=== PATIENT | male | born 1970 | race Caucasian/White ===

== ENCOUNTER 2018-08-30 07:47 | Day surgery (SDC) | payer BC ==
[2018-08-28 11:23] VITALS: BMI 34.4
[~2018-08-30 07:47] MED LIST: LACTATED RINGERS 1,000 ML IV SCH
[2018-08-30] MEDS ORDERED: LIDOCAINE 1% 20 ML VIAL (10MG/ML) FOR IV START INTRADERMA ONE (08:24)
[2018-08-30 08:28] VITALS: RESP 16; TEMP 98
[2018-08-30] MEDS ORDERED: PROPOFOL 10 MG/ML 20 ML VIAL IV ONE (08:55)
--- NOTE | 2018-08-30 09:13 | P.PCN ---
Date of Procedure: 08/30/18 Procedure(s) Performed: BRIEF HISTORY: Patient is a 47-year-old pleasant white male, scheduled for an elective colonoscopy as a part of screening for colon neoplasia. His mother was diagnosed with colon cancer at age 45. PROCEDURE PERFORMED: Colonoscopy with biopsy. PREOPERATIVE DIAGNOSIS: Screening for colon cancer/family history of colon cancer. IV sedation per Anesthesia. PROCEDURE: After informed consent was obtained, the patient, was brought into the endoscopy unit. IV sedation was administered by Anesthesia under continuous monitoring. Digital rectal examination was normal. Initially the Olympus CF- 160 flexible video colonoscope was then inserted in the rectum, gradually advanced into the cecum without any difficulty. Careful examination was performed as the scope was gradually being withdrawn. Ileocecal valve and the appendiceal orifice were visualized and appeared normal. Prep was excellent. Mucosa of the cecum, ascending colon, transverse colon, descending colon, sigmoid colon, and rectum appeared normal. There was a 5 minute a polyp noted in the descending colon that was removed by cold biopsy. Retroflexion was performed in the rectum and no lesions were seen. The patient tolerated the procedure well. IMPRESSION: 5 mm ascending colon polyp status post removal by cold biopsy. Rest of the colon appeared normal. RECOMMENDATIONS: Findings of this examination were discussed with the patient as well as his family. He was advised to follow with the biopsy results. He can have a repeat colonoscopy in 5 years because of family history of colon cancer..
[2018-08-30 09:30] VITALS: BP 126/86; PULSE 62
== END 2018-08-30 09:49 | disposition home or self-care (01) ==
LOC: ORWHC2ENDO 07:47
PROVIDERS: ATTEND Internal Medicine Gastroenterology
DX: Z12.11 Encounter for screening for malignant neoplasm of colon (principal); K63.5 Polyp of colon; I10 Essential (primary) hypertension; Z79.899 Other long term (current) drug therapy; Z87.891 Personal history of nicotine dependence
CPT/HCPCS: 88305; 45380; J2704; 45378

== ENCOUNTER → 2020-09-24 | Outpatient (CLI) | payer BC | END | disposition home or self-care (01) | LOC: LABPAT 09:32 | PROVIDERS: ATTEND Surgery | DX: Z01.818 Encounter for other preprocedural examination (principal) ==

== ENCOUNTER 2020-09-27 06:23 | Day surgery (SDC) | payer BC ==
[2020-09-24 09:27] VITALS: BMI 33.7
[~2020-09-27 06:23] MED LIST changes: +ACETAMINOPHEN TAB 500 MG TAB PO ONE; +HEPARIN SODIUM,PORCINE 5,000 UNIT/ML 1 ML VIAL SQ ONE; +HYDROmorphone 0.5 MG/0.5 ML SYRINGE IVP PRN; +LIDOCAINE 1% (10MG/ML) FOR IV START INTRADERMA PRN; +ONDANSETRON 4 MG/2 ML VIAL IVP ONE; +Pre Op ABX Message 1 EACH MISC MISCELLANE ONE
[2020-09-27] MEDS ORDERED: DEXAMETHASONE SOD PHOSPHATE 10 MG/ML 1 ML VIAL IV ONE (07:16)
[2020-09-27] MEDS ORDERED: PROPOFOL 10 MG/ML 20 ML VIAL IV ONE (07:37)
[2020-09-27] MEDS ORDERED: MIDAZOLAM 2 MG/2 ML VIAL ONE (07:37)
[2020-09-27] MEDS ORDERED: fentaNYL (PF) 50 MCG/ML 2 ML AMP ONE (07:37)
[2020-09-27] MEDS ORDERED: BUPIVACAINE (PF) 0.25% 30 ML VIAL SQ ONE ×2 (07:55→08:16)
[2020-09-27] MEDS ORDERED: ceFAZolin 1,000 MG VIAL IVPB ONE (08:05)
[2020-09-27] MEDS ORDERED: HYDROcodone/APAP 5-325MG 1 EACH TAB PO PRN (08:32)
[2020-09-27] MEDS ORDERED: NALOXONE 0.4 MG/ML 1 ML VIAL IV PRN (08:32)
--- NOTE | 2020-09-27 08:36 | P.OP ---
Date of Procedure: 09/27/20 Procedure(s) Performed: PREOPERATIVE DIAGNOSIS: Elevated CPK, muscle weakness POSTOPERATIVE DIAGNOSIS: Same PROCEDURE: Left quadriceps muscle biopsy SURGEON: Camryn EBL: 5 mL ANESTHESIA: Sedation plus local COMPLICATIONS: None OPERATIVE PROCEDURE: Patient placed in the operating table in the supine position. Patient placed under sedation. Left thigh prepped and draped sterilely. Skin localized with Marcaine. A longitudinal incision made in the mid thigh. Dissection through the subcutaneous tissues took place using electrocautery. The fascia was incised sharply. A portion of the quadriceps muscle measuring 2.5 x 1 x 1 cm was taken. This was cut into 3 pieces and sent to [facility] per their instructions. No bleeding was seen. The fascia was reapproximated using a running 3-0 Vicryl suture. Subcutaneous tissues closed using interrupted 3-0 Vicryl sutures. Skin closed using 4-0 Monocryl sutures. Skin glue applied. DISPOSITION: Stable to recovery room
[2020-09-27 08:37] VITALS: TEMP 97
[2020-09-27 09:20] VITALS: RESP 16
[2020-09-27 09:52] VITALS: BP 124/80; PULSE 59
== END 2020-09-27 10:02 | disposition home or self-care (01) ==
LOC: OR 06:23
PROVIDERS: ATTEND Surgery
DX: G72.9 Myopathy, unspecified (principal); I10 Essential (primary) hypertension; Z79.899 Other long term (current) drug therapy; Z98.890 Other specified postprocedural states; Z87.891 Personal history of nicotine dependence; Z80.0 Family history of malignant neoplasm of digestive organs; Z80.42 Family history of malignant neoplasm of prostate
CPT/HCPCS: 20205; 93005; J2250; J1644; J1100; J2405; J0690; J3010; J2704

== ENCOUNTER → 2020-12-21 | Outpatient (CLI) | payer BC ==
[2020-12-22 05:51] LABS: African American GFR (CKD) 122.4 (60.0-200.0); Anion Gap 10.6 mmol/L (4.00-12.00); BUN/Creat Ratio 21.25 Ratio (12.00-20.00); Calcium 9.8 mg/dL (8.7-10.3); Carbon Dioxide 24.4 mmol/L (21.6-31.8); Non-African American GFR(CKD) 105.6 (60.0-200.0); Potassium 4.7 mmol/L (3.5-5.5)
== END | disposition home or self-care (01) ==
LOC: LABWHC1 15:34
PROVIDERS: ATTEND Internal Medicine Interventional Cardiology
DX: I10 Essential (primary) hypertension (principal)
CPT/HCPCS: 36415; 80048

== ENCOUNTER 2020-12-24 10:25 | Inpatient (IN) | payer BC ==
[~2020-12-24 10:25] MED LIST changes: -ACETAMINOPHEN TAB 500 MG TAB PO ONE; +ALPRAZolam 0.25 MG TAB PO PRN; +ALPRAZolam 0.5 MG TAB PO PRN; +ASPIRIN 325 MG TAB PO STA; +HEPARIN SODIUM,PORCINE 10,000 UNIT in SODIUM CHLORIDE 0.9% 1,000 ML IRRIGATION PRN; +HEPARIN SODIUM,PORCINE 2,500 UNIT in SODIUM CHLORIDE 0.9% 250 ML IRRIGATION PRN; -HEPARIN SODIUM,PORCINE 5,000 UNIT/ML 1 ML VIAL SQ ONE; -HYDROmorphone 0.5 MG/0.5 ML SYRINGE IVP PRN; -LACTATED RINGERS 1,000 ML IV SCH; -LIDOCAINE 1% (10MG/ML) FOR IV START INTRADERMA PRN; +NITROGLYCERIN SL TABS 0.4 MG TAB SUBLINGUAL PRN; -ONDANSETRON 4 MG/2 ML VIAL IVP ONE; -Pre Op ABX Message 1 EACH MISC MISCELLANE ONE; +SODIUM CHLORIDE 0.9% 1,000 ML in EMPTY BAG 1 BAG IV ONE
[2020-12-24] MEDS ORDERED: SODIUM CHLORIDE 0.9% 1,000 ML IV ONE (10:34)
[2020-12-24] MEDS ORDERED: METOPROLOL TARTRATE 5 MG/5 ML VIAL IVP ONE (10:42)
[2020-12-24] MEDS ORDERED: METOPROLOL TARTRATE 50 MG TAB PO STA (10:55)
[2020-12-24] MEDS ORDERED: DILTIAZEM DRIP BOLUS FROM BAG 1 MG SOLN IV ONE (10:55)
[2020-12-24] MEDS ORDERED: VERAPAMIL 2.5 MG/ML 2 ML AMP ONE (10:59)
[2020-12-24] MEDS ORDERED: HEPARIN SODIUM 1,000 UN/ML (10ML VL) ONE (10:59)
[2020-12-24] MEDS ORDERED: LIDOCAINE 1% INJ 10MG/ML (20 ML MDV) ONE (10:59)
[2020-12-24 11:01] LABS: Basophils # (A) 0.1 k/uL (0-0.2); Basophils % (A) 1 %; Eosinophils # (A) 0.3 k/uL (0-0.7); Eosinophils % (A) 3 %; HCT 46.6 % (39.0-53.0); HGB 15.4 gm/dL (13.0-17.5); Lymphocytes # (A) 3.3 k/uL (1.0-4.8); Lymphocytes % (A) 35 %; MCH 29.8 pg (25.0-35.0); MCHC 33.1 g/dL (31.0-37.0); MCV 89.8 fL (80.0-100.0); Mean Platelet Volume 7.1; Monocytes # (A) 0.4 k/uL (0-1.0); Monocytes % (A) 5 %; Neutrophils % (A) 54 %; Platelet Count 409 k/uL (150-450); RBC 5.19 m/uL (4.30-5.90); RDW 13.3 % (11.5-15.5); WBC 9.3 k/uL (3.8-10.6)
[2020-12-24] MEDS: MIDAZOLAM 2 MG/2 ML VIAL IV ONE ×2 (11:05→11:15)
[2020-12-24] MEDS ORDERED: METOPROLOL TARTRATE 50 MG TAB PO ONE (11:07)
[2020-12-24] MEDS: DILTIAZEM 125 MG in SODIUM CHLORIDE 0.9% 100 ML IV SCH (11:08)
[2020-12-24] MEDS: VERAPAMIL SYRINGE (5 MG/10 ML) INTRAARTER ONE ×2 (11:09→11:25)
[2020-12-24 11:22] LABS: African American GFR (CKD) >90 (>60 ml/min/1.73 sqM); Anion Gap 9 mmol/L; Blood Urea Nitrogen 15 mg/dL (9-20); Calcium 9.5 mg/dL (8.4-10.2); Carbon Dioxide 28 mmol/L (22-30); Chloride 102 mmol/L (98-107); Glucose 126 mg/dL (74-99); Non-African American GFR(CKD) >90 (>60 ml/min/1.73 sqM); Potassium 4.3 mmol/L (3.5-5.1); Sodium 139 mmol/L (137-145)
[2020-12-24] MEDS ORDERED: IOPAMIDOL-370 100ML BTL INJ ONE (11:25)
[2020-12-24] MEDS ORDERED: RX INFO: IV CONTRAST WAS GIVEN 1 EACH MISC MISCELLANE PRN (11:48)
[2020-12-24] MEDS: SODIUM CHLORIDE 0.9% 1,000 ML IV SCH (12:00)
--- NOTE | 2020-12-24 13:13 | CC ---
CARDIAC CATHETERIZATION REPORT DATE OF SERVICE: 12/24/2020. PROCEDURE: Left heart catheterization and coronary angiography. PERFORMED BY: Dr. Sd Lechuga. Moderate conscious sedation time was 13 minutes. Patient was administered Versed. Oxygen saturation, hemodynamics and EKG were monitored closely. CLINICAL INFORMATION: Mr. Nora Lema is a 50-year-old gentleman with some polymyalgia/polymyositis type issue with some weakness in his muscles. He came into see me because of nondescript chest pain and abnormal EKG with left bundle. I recommended further evaluation by stress test. The day he came in for the stress test, he was in atrial fibrillation with a moderately rapid ventricular rate with underlying left bundle. I gave him additional beta raphael and stress test revealed lateral wall reversible defect. He was advised cardiac cath. I also explained to the patient and that if his rate is high, he will be hospitalized after the cardiac cath. I did not give him anticoagulation since I saw him on Sunday and the procedure was scheduled for Sunday. The patient and understood risks, benefits, options, rationale, and wished to proceed. PROCEDURE NOTE: Under local anesthesia and strict aseptic precautions, a 6-Chinese introducer was placed in the right radial artery. Using a JL3.5 and JR4 catheters I performed coronary angiography and the same right catheter was used to check LV pressure but LV gram was not performed. The sheath was taken out and TR band applied as per protocol with saturation of the fingers of the right hand of 95%. The patient tolerated procedure well without complication. Findings and results were discussed with the patient and . I will keep him overnight and start him on flecainide in addition to beta raphael and also Eliquis 5 mg b.i.d. Thyroid function tests are pending. CARDIAC CATHETERIZATION FINDINGS: The left ventricular end-diastolic pressure was about 10 mmHg without any gradient across aortic valve. CORONARY ANGIOGRAPHY FINDINGS: LEFT MAIN CORONARY ARTERY: Short patent disease-free vessel that bifurcates into LAD and circumflex. LEFT ANTERIOR DESCENDING CORONARY ARTERY: Good caliber vessel extends along the anterior wall, gives off septal and a good-sized diagonal branch in the midportion. Minor irregularities. No significant disease. LEFT POSTERIOR CIRCUMFLEX CORONARY ARTERY: Nondominant vessel, gives off a large obtuse marginal and another secondary branch and then runs in the AV groove and left atrial circumflex branch. There are minor irregularities but no significant disease in the nondominant, good caliber and good distribution circumflex system. RIGHT CORONARY ARTERY: Dominant vessel. Minor irregularities. No significant disease distally bifurcates into PDA and PLV, supplies a fair amount of myocardium. LEFT VENTRICULOGRAM: Left ventriculogram was not performed. FINAL IMPRESSION: This patient has normal filling pressures, no gradient across the aortic valve, right dominant system and no obstructive coronary artery disease. RECOMMENDATIONS: Findings were discussed with the patient and . We will treat him medically with risk factor modification, but I will also initiate him on a small dose of flecainide and metoprolol succinate and Eliquis 5 mg b.i.d. and keep him overnight. MMODL / IJN: [id number] /
[2020-12-24] MEDS: LOSARTAN 50 MG TAB PO SCH (20:27)
[2020-12-24] MEDS: APIXABAN 5 MG TAB PO SCH (20:28)
[2020-12-24] MEDS: FLECAINIDE 50 MG TAB PO SCH (20:28)
[2020-12-25] MEDS: DILTIAZEM 125 MG in SODIUM CHLORIDE 0.9% 100 ML IV SCH ×2 (01:15→14:02)
[2020-12-25] MEDS: SODIUM CHLORIDE 0.9% 1,000 ML IV SCH (05:19)
[2020-12-25 07:15] LABS: Basophils % (A) 1 %; Eosinophils # (A) 0.2 k/uL (0-0.7); Eosinophils % (A) 4 %; HCT 42.7 % (39.0-53.0); HGB 14.7 gm/dL (13.0-17.5); Lymphocytes # (A) 1.5 k/uL (1.0-4.8); Lymphocytes % (A) 25 %; MCH 30.6 pg (25.0-35.0); MCHC 34.4 g/dL (31.0-37.0); Mean Platelet Volume 6.9; Monocytes # (A) 0.3 k/uL (0-1.0); Monocytes % (A) 4 %; Neutrophils # (A) 4.1 k/uL (1.3-7.7); Neutrophils % (A) 66 %; Platelet Count 230 k/uL (150-450); RDW 12.8 % (11.5-15.5); WBC 6.2 k/uL (3.8-10.6)
[2020-12-25 07:32] LABS: African American GFR (CKD) >90 (>60 ml/min/1.73 sqM); Anion Gap 9 mmol/L; Blood Urea Nitrogen 11 mg/dL (9-20); Calcium 8.8 mg/dL (8.4-10.2); Carbon Dioxide 23 mmol/L (22-30); Chloride 106 mmol/L (98-107); Glucose 112 mg/dL (74-99); Non-African American GFR(CKD) >90 (>60 ml/min/1.73 sqM); Potassium 4.2 mmol/L (3.5-5.1); Sodium 138 mmol/L (137-145)
[2020-12-25] MEDS: FLECAINIDE 50 MG TAB PO SCH ×2 (08:12→20:31)
[2020-12-25] MEDS: APIXABAN 5 MG TAB PO SCH ×2 (08:12→20:32)
[2020-12-25] MEDS ORDERED: ASPIRIN 81 MG PO SCH (09:00)
[2020-12-25] MEDS ORDERED: METOPROLOL TARTRATE 25 MG TAB PO SCH (09:00)
--- NOTE | 2020-12-25 10:07 | P.PN ---
Subjective Progress Note Date: 12/25/20 Discharge note This is a 50-year-old gentleman with history of polymyalgia, presented initially with some atypical chest pain and an EKG which revealed a left bundle. He underwent a stress test and was found to be in A. 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 Patient was given a beta raphael, stress test showed reversible lateral wall defect and patient was advised to undergo cardiac catheterization. This was performed yesterday by Dr. GT Lechuga. Cardiac catheterization revealed normal filling pressures, no gradient across the aortic valve, right dominant system with no obstructive coronary artery disease. Patient was initiated on flecainide and was also started on a Cardizem drip through the night last night. Patient did have some rapid atrial fibrillation through the night and again this morning, he is also having PVCs. Patient did convert to normal sinus rhythm and at the time of my examination this morning continues to be in a normal sinus rhythm. He denies any palpitations at present no chest discomfort and his breathing is stable. Blood pressure 120/80 with a heart rate in the 80s, 100% on room air. White blood cell count 6.2, hemoglobin 14.7, platelet count 2:30. Sodium 138, potassium 4.2, BUN 11, creatinine 0.6, magnesium is 1.8 and we will give him 2 g of Mag. Objective - Vital Signs Vital signs: Vital Signs Temp 97.6 F 12/25/20 07:15 Pulse 84 12/25/20 07:15 Resp 16 12/25/20 07:15 BP 119/83 12/25/20 07:15 Pulse Ox 100 12/25/20 07:15 Intake & Output 12/24/20 12/25/20 12/25/20 18:59 06:59 18:59 Intake Total 1612 40 210 Output Total 600 Balance 1012 40 210 Weight 108 kg Intake: IV 172 10 10 Invasive Line 2 10 10 10 Intake, IV Titration 20 30 Amount Diltiazem 125 mg In 20 30 Sodium Chloride 0.9% 100 ml @ 10 MG/HR 10 mls/hr IV .[id number] ARIEL Rx#: [id number] Oral 1420 200 Output: Urine 600 Other: # Voids 2 - Exam PHYSICAL EXAMINATION: GENERAL: 50-year-old gentleman in no acute distress at the time of my examination HEENT: Head is atraumatic, normocephalic. Pupils equal, round. Sclera anicteric. Conjunctiva are clear. Mucous membranes of the mouth are moist. Neck is supple. There is no elevated jugular venous pressure. No carotid bruit is heard. HEART EXAMINATION: Heart S1, S2 normal. No murmur or gallop heard. CHEST EXAMINATION: Lungs are clear to auscultation and precussion. No chest wall tenderness is noted on palpation or with deep breathing. ABDOMEN: Soft, nontender. Bowel sounds are heard. No organomegaly noted. EXTREMITIES: 2+ peripheral pulses with no evidence of peripheral edema and no calf tenderness noted. Right radial site clean and dry, good distal pulse. NEUROLOGIC patient is awake, alert and oriented X-3. . - Labs CBC & Chem 7: 12/25/20 06:50 12/25/20 06:50 Labs: Abnormal Lab Results - Last 24 Hours (Table) 12/24/20 12/25/20 Range/Units 10:40 06:50 Creatinine 0.62 L (0.66-1.25) mg/dL Glucose 126 H 112 H (74-99) mg/dL Assessment and Plan Plan: Assessment and plan #1 status post cardiac catheterization which revealed normal coronary arteries #2 atrial fibrillation with rapid ventricular response, paroxysmal, maintaining in normal sinus rhythm #3 polymyalgia Plan From cardiology's perspective, we will give the patient 2 g of magnesium today, he is having some occasional PVCs. He may be able to be discharged home today to follow-up with Dr. Desi Lechuga in the office post discharge. Discharge medications include Eliquis 5 mg one tablet by mouth twice a day, flecainide 50 mg one tablet by mouth twice a day, Cozaar 50 mg daily, metoprolol we will increase to 25 mg one tablet by mouth twice a day. We will make him a follow-up appointment to see Dr. GT Lechuga in the office in one week. DNP note has been reviewed, I agree with a documented findings and plan of care. Patient was seen and examined.
[2020-12-25] MEDS: MAGNESIUM SULFATE-D5W PMX 1 GM in DEXTROSE/WATER 1 100ML.BAG IVPB SCH ×2 (10:45→12:00)
[2020-12-25] MEDS: LOSARTAN 50 MG TAB PO SCH (20:31)
[2020-12-25] MEDS: METOPROLOL TARTRATE 25 MG TAB PO SCH (20:31)
[2020-12-26] MEDS: ACETAMINOPHEN TAB 325 MG TAB PO PRN (01:07)
[2020-12-26] MEDS: DILTIAZEM 125 MG in SODIUM CHLORIDE 0.9% 100 ML IV SCH ×3 (06:12→22:08)
[2020-12-26] MEDS: METOPROLOL TARTRATE 25 MG TAB PO SCH (07:36)
[2020-12-26] MEDS: APIXABAN 5 MG TAB PO SCH ×2 (07:36→19:44)
[2020-12-26] MEDS: FLECAINIDE 50 MG TAB PO SCH ×2 (07:36→19:45)
[2020-12-26] MEDS: METOPROLOL TARTRATE 50 MG TAB PO SCH ×2 (08:07→19:45)
[2020-12-26] MEDS ORDERED: FLECAINIDE 50 MG TAB PO STA (08:37)
[2020-12-26] MEDS ORDERED: FLECAINIDE 50 MG TAB PO SCH (09:00)
--- NOTE | 2020-12-26 10:14 | P.PN ---
Subjective Progress Note Date: 12/26/20 Discharge note This is a 50-year-old gentleman with history of polymyalgia, presented initially with some atypical chest pain and an EKG which revealed a left bundle. He underwent a stress test and was found to be in A. 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 Patient was given a beta raphael, stress test showed reversible lateral wall defect and patient was advised to undergo cardiac catheterization. This was performed yesterday by Dr. GT Lechuga. Cardiac catheterization revealed normal filling pressures, no gradient across the aortic valve, right dominant system with no obstructive coronary artery disease. Patient was initiated on flecainide and was also started on a Cardizem drip through the night last night. Patient did have some rapid atrial fibrillation through the night and again this morning, he is also having PVCs. Patient did convert to normal sinus rhythm and at the time of my examination this morning continues to be in a normal sinus rhythm. He denies any palpitations at present no chest discomfort and his breathing is stable. Blood pressure 120/80 with a heart rate in the 80s, 100% on room air. White blood cell count 6.2, hemoglobin 14.7, platelet count 2:30. Sodium 138, potassium 4.2, BUN 11, creatinine 0.6, magnesium is 1.8 and we will give him 2 g of Mag. 12/26/2020 Patient seen and examined this morning. He was not discharged home yesterday, because he went back into atrial fibrillation with a rapid ventricular response, heart rate was in the 170s. Patient was put back on a Cardizem drip at 10 mg per hour. This morning he was in a normal sinus rhythm, and EKG was performed which confirmed normal sinus rhythm, no change in QTC. His beta raphael dose was increased. Dr. GT Lechuga increased the patient's flecainide this morning and decrease the Cardizem drip to 5. On review of the paper chart, it appears that the patient had an echo performed at the office which revealed an ejection fraction of 55%. We will continue to monitor the patient overnight tonight, request Dr. Pérez to see the patient in consultation. Objective - Vital Signs Vital signs: Vital Signs Temp 98.2 F 12/26/20 07:35 Pulse 83 12/26/20 07:35 Resp 16 12/26/20 07:35 BP 136/101 12/26/20 07:35 Pulse Ox 98 12/26/20 07:35 Intake & Output 12/25/20 12/26/20 12/26/20 18:59 06:59 18:59 Intake Total 1060 125 124.833 Balance 1060 125 124.833 Weight 106.7 kg Intake: IV 20 Invasive Line 2 20 Intake, IV Titration 125 24.833 Amount Diltiazem 125 mg In 125 24.833 Sodium Chloride 0.9% 100 ml @ 10 MG/HR 10 mls/hr IV .[id number] ARIEL Rx#: [id number] Oral 1040 100 Other: # Voids 2 2 - Exam PHYSICAL EXAMINATION: GENERAL: 50-year-old gentleman in no acute distress at the time of my examination HEENT: Head is atraumatic, normocephalic. Pupils equal, round. Sclera anicteric. Conjunctiva are clear. Mucous membranes of the mouth are moist. Neck is supple. There is no elevated jugular venous pressure. No carotid bruit is heard. HEART EXAMINATION: Heart S1, S2 normal. No murmur or gallop heard. CHEST EXAMINATION: Lungs are clear to auscultation and precussion. No chest wall tenderness is noted on palpation or with deep breathing. ABDOMEN: Soft, nontender. Bowel sounds are heard. No organomegaly noted. EXTREMITIES: 2+ peripheral pulses with no evidence of peripheral edema and no calf tenderness noted. Right radial site clean and dry, good distal pulse. NEUROLOGIC patient is awake, alert and oriented X-3. . - Labs CBC & Chem 7: 12/25/20 06:50 12/25/20 06:50 Assessment and Plan Plan: Assessment and plan #1 status post cardiac catheterization which revealed normal coronary arteries #2 atrial fibrillation with rapid ventricular response, paroxysmal, maintaining in normal sinus rhythm #3 polymyalgia Plan Patient's beta raphael this morning with increased to 50 mg one tablet by mouth twice a day. He still is having intermittent episodes of rapid atrial fibrillation. Dr. GT Lechuga has given orders to decrease the Cardizem to 5 mg per hour and increase the flecainide to 100 mg by mouth twice a day. He has also requested that the patient be monitored overnight, Dr. Pérez to see in consultation tomorrow. DNP note has been reviewed, I agree with a documented findings and plan of care. Patient was seen and examined.
[2020-12-26] MEDS: LOSARTAN 50 MG TAB PO SCH (19:45)
[2020-12-27] MEDS: APIXABAN 5 MG TAB PO SCH ×2 (08:53→20:02)
[2020-12-27] MEDS: METOPROLOL TARTRATE 50 MG TAB PO SCH (08:53)
[2020-12-27] MEDS: FLECAINIDE 50 MG TAB PO SCH (08:53)
[2020-12-27 09:45] LABS: African American GFR (CKD) >90 (>60 ml/min/1.73 sqM); Anion Gap 9 mmol/L; Blood Urea Nitrogen 10 mg/dL (9-20); Carbon Dioxide 29 mmol/L (22-30); Chloride 102 mmol/L (98-107); Glucose 66 mg/dL (74-99); Magnesium 1.9 mg/dL (1.6-2.3); Non-African American GFR(CKD) >90 (>60 ml/min/1.73 sqM); Potassium 5.1 mmol/L (3.5-5.1); Sodium 140 mmol/L (137-145)
[2020-12-27 10:19] LABS: C Reactive Protein 7.4 mg/L (<10.0)
--- NOTE | 2020-12-27 10:23 | CT ---
EXAMINATION TYPE: CT chest wo con DATE OF EXAM: 12/27/2020 COMPARISON: Chest x-ray July 11, 2013 HISTORY: Assess for lymphadenopathy. Tachycardia. CT DLP: 568.8 mGycm. Automated Exposure Control for Dose Reduction was Utilized. TECHNIQUE: CT scan of the thorax is performed without IV contrast. FINDINGS: LUNGS: There is a 1.7 x 1.6 cm spiculated nodule or nodular consolidation central right middle lobe a xial image 34. Left lung is clear. No pleural effusion or pneumothorax. No suspicious masses. MEDIASTINUM: Lack of IV contrast is noted to limit evaluation for mediastinal and especially hilar ad enopathy. There are no definitive greater than 1 cm hilar or mediastinal lymph nodes. No cardiomega ly or pericardial effusion is seen. OTHER: [id number] multilevel spurring in the spine. IMPRESSION: Suspicious 1.7 x 1.6 cm central right middle Lobe nodule or nodular consolidation. No abn ormal thoracic adenopathy. Neoplasm cannot be excluded. Consider PET-CT follow-up.
[2020-12-27] MEDS: METOPROLOL SUCCINATE (ER) 50 MG TAB.ER.24H PO SCH ×2 (11:04→20:02)
[2020-12-27] MEDS: SPIRONOLACTONE 25 MG TAB PO SCH (11:20)
[2020-12-27] MEDS ORDERED: DILTIAZEM 125 MG in SODIUM CHLORIDE 0.9% 100 ML IV SCH (12:30)
--- NOTE | 2020-12-27 20:00 | P.EPCON ---
Electrophysiology Consult - EP Consult Electrophysiology Consult: This is Dr. Pérez dictating an electrophysiology consult on this patient The patient was interviewed and examined IMPRESSION / ASSESSMENT: Recurrent atrial tachycardia with RVR Nonsustained ventricular tachycardia, 2 episodes Left bundle branch block pattern IVCD with left anterior fascicular block Mildly prolonged NM interval Skeletal muscle disease, the underlying condition being worked up, muscle biopsy performed Normal ESR and C-reactive protein Consideration must be given for paraneoplastic condition to explain the myopathy, given the CT results PLAN: Stop Cardizem drip Switch to metoprolol succinate 50 g twice daily for management of mild cardiac myopathy and atrial tachycardia and nonsustained ventricular tachycardia Anticoagulated with ELIQUIS Stop flecainide Start spironolactone. 5 mg by mouth daily Check C-reactive protein and ESR Noncontrast CT of the chest to evaluate for sarcoidosis Angiotensin converting enzyme levels CT chest shows no abnormal thoracic adenopathy. Suspicious 1.76 1.6 cm central right middle lobe nodule or nodular consolidation. PET/CT recommended HPI Patient was admitted with chest discomfort and an EKG showed left bundle branch block. In the office he was found to be in A. 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 Stress test showed reversible lateral wall ischemia and he was advised to undergo cardiac catheterization in the hospital he had recurrent episodes of SVT at 170 280 beats a minute with a left bundle branch block pattern. His stress test showed reduced LV systolic function but his prior echo had showed normal LV function On telemetry he also had a daytime episode of bradycardia with AV block with underlying atrial tachycardia. He is also had 2 runs of non-sustained ventricular tachycardia The morphology of the nonsustained ventricular tachycardia is as follows: Right bundle branch block morphology with predominantly negatively oriented QRS is in lead 1 aVL and lead to In sinus rhythm he is a mildly prolonged NM interval left bundle branch block pattern/left anterior fascicular block pattern On 1 ECG fractionation is noted in the QRS of lead V2 He is currently being worked up for muscle weakness. He reviewed his muscle biopsy that there is no clear-cut onset on the muscle biopsy. His CPKs have always been elevated. He had weakness in the leg muscles ROS: No fever chills or rigors, no cough, phlegm or expectoration, no nausea, vomiting or diarrhea, no hematuria, dysuria, Positive musculoskeletal complaints, no strokes or seizures, no skin lesions. Complaints of palpitations, no loss of consciousness EXAMINATION: Blood pressure 122/78 mmHg afebrile 97.3F pulse rate in the 70s and 80s in sinus rhythm normal respirations Breath sounds are clear no rhonchi no crackles Normal heart sounds normal S1 normal S2 no murmurs or gallops or rub No muscle tenderness REVIEW OF LABS, ECG & MEDICAL DATA EMG shows chronic denervation CPK 2973, aldolase 17.9, liver enzymes elevated Mixed mild myopathic and a neurogenic changes The myopathic changes, mild and not entirely specific Consideration for paraneoplastic condition given the CT results TSH is normal
[2020-12-27] MEDS: LOSARTAN 25 MG TAB PO SCH (20:02)
[2020-12-28] MEDS: METOPROLOL SUCCINATE (ER) 50 MG TAB.ER.24H PO SCH ×2 (08:05→19:04)
[2020-12-28] MEDS: SPIRONOLACTONE 25 MG TAB PO SCH (08:05)
[2020-12-28] MEDS: APIXABAN 5 MG TAB PO SCH ×2 (08:05→20:39)
[2020-12-28 10:08] LABS: African American GFR (CKD) >90 (>60 ml/min/1.73 sqM); Anion Gap 9 mmol/L; Blood Urea Nitrogen 14 mg/dL (9-20); Calcium 9.9 mg/dL (8.4-10.2); Carbon Dioxide 30 mmol/L (22-30); Chloride 100 mmol/L (98-107); Glucose 99 mg/dL (74-99); Magnesium 1.8 mg/dL (1.6-2.3); Non-African American GFR(CKD) >90 (>60 ml/min/1.73 sqM); Potassium 4.8 mmol/L (3.5-5.1); Sodium 139 mmol/L (137-145)
[2020-12-28] MEDS: SOTALOL 80 MG TAB PO SCH ×2 (10:38→19:05)
[2020-12-28] MEDS: MAGNESIUM OXIDE 400 MG TAB PO SCH (10:38)
--- NOTE | 2020-12-28 11:35 | P.HPIM ---
History of Present Illness Patient is a pleasant 50-year-old gentleman was admitted for elective cardiac catheterization because of abnormal stress test cardiac ablation sugars showed clean coronaries. Patient was subsequently discharged patient went into atrial fibrillation with heart rate in 170s patient ended up coming back was started on Cardizem drip Flecanaide, which was subsequently discontinued and patient is presently on sotalol. Patient's daily is being monitored. Patient also has myopathy for which patient is being evaluated with a muscle biopsy. Patient had a computed tomography scan of the chest which showed a small 1.7-1.4 cm nodule f or which pulmonology was consulted. Patient denied any chest discomfort at this time heart rate is presently controlled patient denied any fever chills nausea vomiting. Electro-physiology evaluated the patient. Patient had a normal ejection fraction. Patient used to be a smoker quit smoking years ago does have history of COPD Review of Systems REVIEW OF SYSTEMS: CONSTITUTIONAL: No fever, no malaise, no fatigue. HEENT: No recent visual problems or hearing problems. Denied any sore throat. CARDIOVASCULAR: No chest pain, orthopnea, PND, no palpitations, no syncope. PULMONARY: No shortness of breath, no cough, no hemoptysis. GASTROINTESTINAL: No diarrhea, no nausea, no vomiting, no abdominal pain. NEUROLOGICAL: No headaches, no weakness, no numbness. HEMATOLOGICAL: Denies any bleeding or petechiae. GENITOURINARY: Denies any burning micturition, frequency, or urgency. MUSCULOSKELETAL/RHEUMATOLOGICAL: Denies any joint pain, swelling, or any muscle pain. ENDOCRINE: Denies any polyuria or polydipsia. The rest of the 14-point review of systems is negative. Past Medical History Past Medical History: Hypertension, Osteoarthritis (OA) Additional Past Medical History / Comment(s): FATTY LIVER., SINUS PROBLEMS, STATES BEING TESTED FOR AUTO IMMUNE DISEASE AT [facility] SYMPTOMS OF LOSS OF STRENGTH, FEELS TIRED ELEVATED CK AND LIVER ENZYMES, STATES SHOT FOR HEPATITIS AT 10 YRS OLD ? EXPOSURE., SEE CARDIOLOGY H & P., STATES SOB. History of Any Multi-Drug Resistant Organisms: None Reported Past Surgical History: Orthopedic Surgery Additional Past Surgical History / Comment(s): RIGHT CARPAL TUNNEL RELEASE, COLONOSCOPY. WISDOM TEETH., MUSCLE BX. Past Anesthesia/Blood Transfusion Reactions: No Reported Reaction Past Psychological History: No Psychological Hx Reported Smoking Status: Former smoker Past Alcohol Use History: Rare Additional Past Alcohol Use History / Comment(s): STARTED SMOKING AT AGE 14, SMOKED SMOKED 1 PPD, QUIT 10/2015 Past Drug Use History: None Reported - Past Family History Father Family Medical History: Cancer Additional Family Medical History / Comment(s): PROSTATE CANCER Mother Family Medical History: Cancer Additional Family Medical History / Comment(s): COLON CANCER X2 Brother(s) Family Medical History: Cancer Additional Family Medical History / Comment(s): SKIN Medications and Allergies Home Medications Medication Instructions Recorded Confirmed Type Multivitamins, Thera [Multivitamin 2 tab PO DAILY 08/28/18 12/24/20 History (formulary)] [place]-3 Fatty Acids/Fish Oil [Fish 1,400 mg PO HS 08/28/18 12/24/20 History Oil 1,000 mg Softgel] Cyanocobalamin [Vitamin B-12 1,000 mcg SQ DIRECTED 12/23/20 12/23/20 History Injection] Testosterone Injection 200 mg IM DIRECTED 12/23/20 History Apixaban [Eliquis] 5 mg PO BID #60 tab 12/25/20 Rx Losartan [Cozaar] 50 mg PO HS #30 tab 12/25/20 Rx Metoprolol Tartrate [Lopressor] 25 mg PO BID #60 tab 12/25/20 Rx Allergies Allergy/AdvReac Type Severity Reaction Status Date / Time No Known Allergies Allergy Verified 12/24/20 10:51 Physical Exam Vitals: Vital Signs Temp Pulse Resp BP Pulse Ox 12/28/20 08:30 70 18 12/28/20 08:05 98.1 F 70 16 127/83 97 12/28/20 03:46 74 18 105/67 99 12/28/20 01:30 71 16 12/27/20 23:25 71 16 114/73 97 12/27/20 20:00 97.8 F 73 16 117/80 97 12/27/20 16:00 97.9 F 75 16 124/84 96 12/27/20 11:41 97.3 F L 93 16 122/78 97 Intake and Output 12/27/20 12/28/20 12/28/20 22:59 06:59 14:59 Intake Total 480 Balance 480 Intake: Oral 480 Other: Voiding Method Toilet Toilet Toilet # Voids 1 1 Weight 105.5 kg PHYSICAL EXAMINATION: GENERAL: The patient is alert and oriented x3, not in any acute distress. Well developed, well nourished. HEENT: Pupils are round and equally reacting to light. EOMI. No scleral icterus. No conjunctival pallor. Normocephalic, atraumatic. No pharyngeal erythema. No thyromegaly. CARDIOVASCULAR: S1 and S2 present. No murmurs, rubs, or gallops. PULMONARY: Chest is clear to auscultation, no wheezing or crackles. ABDOMEN: Soft, nontender, nondistended, normoactive bowel sounds. No palpable organomegaly. MUSCULOSKELETAL: No joint swelling or deformity. EXTREMITIES: No cyanosis, clubbing, or pedal edema. NEUROLOGICAL: Gross neurological examination did not reveal any focal deficits. SKIN: No rashes. Results CBC & Chem 7: 12/25/20 06:50 12/28/20 09:30 Assessment and Plan Plan: -Atrial fibrillation with rapid ventricular response present is sinus rhythm rate controlled on sotalol daily will be monitored - nodular lesion on the CAT scan pulmonology will evaluate the patient -COPD without any acute exacerbation Possible myositis patient had a muscle biopsy
--- NOTE | 2020-12-28 12:31 | P.PN ---
Subjective He is seen and examined sitting up in the recliner in no acute distress. He has been up ambulating the room without chest pain or shortness of breath. His heart rates have been up and down in the last 24 hours. He was put back on IV cardizem yesterday which for the most part is controlling his rates but he still is having some bursts of RVR. Records from his neurologist were reviewed. He is considering possibly inherited muscular dystrophy, myofibrillar myopathy, metabolic myopathy or inflammatory myopathy. He is currently in the process of o btaining further genetic testing. A CT of the chest we ordered yesterday revealed a 1.7x1.6 central right middle lobe nodule or nodular density with no abnormal thoracic adenopathy. Current blood pressure 122/87 heart rate 77 afebrile and maintaining oxygen saturation on room air. Laboratory data r eviewed, sodium 139, potassium 4.8, creatinine 0.8, magnesium 1.8, angiotensin- converting enzyme 36 and TSH 2.51. GENERAL: Well-appearing, well-nourished and in no acute distress. NECK: Supple without JVD or thyromegaly. LUNGS: Breath sounds clear to auscultation bilaterally. Respiration equal and unlabored. No wheezes, rales or rhonchi. HEART: Regular rate and rhythm without murmurs, rubs or gallops. S1 and S2 heard. EXTREMITIES: Normal range of motion, no edema. No clubbing or cyanosis. Per ipheral pulses intact. ASSESSMENT Recurrent atrial tachycardia with RVR Nonsustained ventricular tachycardia Left bundle branch block with IVCD and left anterior fascicular block Prolonged GA interval Skeletal muscle disease Lung nodule Hypertension Former nicotine dependence PLAN Discontinue cardizem infusion. Repeat EKG today and daily moving forward. Initiate sotalol 80 mg BID. Assess daily GA interval and QTc. Continue eliquis for thromboembolic protection. Request pulmonary evaluation of newly found pulmonary nodule. Further recommendations to follow based on clinical course. Nurse Practitioner note has been reviewed, I agree with a documented findings and plan of care. Patient was seen and examined. Objective - Vital Signs Vital signs: Vital Signs Temp 97.7 F 12/28/20 11:57 Pulse 77 12/28/20 11:57 Resp 16 12/28/20 11:57 BP 122/87 12/28/20 11:57 Pulse Ox 99 12/28/20 11:57 Intake & Output 12/27/20 12/28/20 12/28/20 18:59 06:59 18:59 Intake Total 1800 Balance 1800 Weight 105.5 kg Intake: Oral 1800 Other: Voiding Method Toilet Toilet # Voids 3 1 - Labs CBC & Chem 7: 12/25/20 06:50 12/28/20 09:30
--- NOTE | 2020-12-28 16:45 | P.CNPUL ---
History of Present Illness Consult date: 12/28/20 Requesting physician: Ginette Granger Reason for consult: abnormal CXR/CT Chief complaint: Abnormal CAT scan. History of present illness: 50-year-old male that I am asked to see for an abnormal computed tomography scan showing a suspicious 1.7 x 1.6 cm central right middle lobe nodule. There was no thoracic adenopathy. A PET/CT fusion study was recommended. The patient had a cardiac catheterization recently. In addition, he recently had a consultation with the electrical accessories ii assembler. He is not having any lung issues at this time. The patient has a history of hypertension, and osteoarthritis, as well as fatty liver, possible autoimmune disease, among other things. The patient told me that his cardiac catheterization was within normal range. In the process of evaluating the patient, he was discovered to have the right-sided lung lesion. I explained to him that this can be worked up as an outpatient and I will probably go ahead and order a PET scan. He apparently started smoking at the age of 14. He quit smoking about 5 years ago in October 2015. He smoked about a pack a day. There is a family history of prostate cancer, colon cancer, and skin cancer, but not lung cancer. Again the patient denies all pulmonary complaints including shortness of breath, chest tightness, cough, wheezing, phlegm production, or hemoptysis. Review of Systems REVIEW OF SYSTEMS: CONSTITUTIONAL: [Negative.] NEUROLOGIC: [ Negative.] HEENT: [ Negative.] CARDIAC: Severe atrial fibrillation. PULMONARY: [Negative.] GI: [Negative.] : [Negative.] RHEUMATOLOGIC: Questionable autoimmune disease/myopathy, currently being evaluated. IMMUNOLOGIC: [ Negative.] ENDOCRINE: [Negative. ] DERMATOLOGIC: [Negative.] Past Medical History Past Medical History: Hypertension, Osteoarthritis (OA) Additional Past Medical History / Comment(s): FATTY LIVER., SINUS PROBLEMS, STATES BEING TESTED FOR AUTO IMMUNE DISEASE AT [facility] SYMPTOMS OF LOSS OF STRENGTH, FEELS TIRED ELEVATED CK AND LIVER ENZYMES, STATES SHOT FOR HEPATITIS AT 10 YRS OLD ? EXPOSURE., SEE CARDIOLOGY H & P., STATES SOB. History of Any Multi-Drug Resistant Organisms: None Reported Past Surgical History: Orthopedic Surgery Additional Past Surgical History / Comment(s): RIGHT CARPAL TUNNEL RELEASE, COLONOSCOPY. WISDOM TEETH., MUSCLE BX. Past Anesthesia/Blood Transfusion Reactions: No Reported Reaction Past Psychological History: No Psychological Hx Reported Smoking Status: Former smoker Past Alcohol Use History: Rare Additional Past Alcohol Use History / Comment(s): STARTED SMOKING AT AGE 14, SMOKED SMOKED 1 PPD, QUIT 10/2015 Past Drug Use History: None Reported - Past Family History Father Family Medical History: Cancer Additional Family Medical History / Comment(s): PROSTATE CANCER Mother Family Medical History: Cancer Additional Family Medical History / Comment(s): COLON CANCER X2 Brother(s) Family Medical History: Cancer Additional Family Medical History / Comment(s): SKIN Medications and Allergies Home Medications Medication Instructions Recorded Confirmed Type Multivitamins, Thera [Multivitamin 2 tab PO DAILY 08/28/18 12/24/20 History (formulary)] [place]-3 Fatty Acids/Fish Oil [Fish 1,400 mg PO HS 08/28/18 12/24/20 History Oil 1,000 mg Softgel] Cyanocobalamin [Vitamin B-12 1,000 mcg SQ DIRECTED 12/23/20 12/23/20 History Injection] Testosterone Injection 200 mg IM DIRECTED 12/23/20 History Apixaban [Eliquis] 5 mg PO BID #60 tab 12/25/20 Rx Losartan [Cozaar] 50 mg PO HS #30 tab 12/25/20 Rx Metoprolol Tartrate [Lopressor] 25 mg PO BID #60 tab 12/25/20 Rx Allergies Allergy/AdvReac Type Severity Reaction Status Date / Time No Known Allergies Allergy Verified 12/24/20 10:51 Physical Exam Osteopathic Statement: *. No significant issues noted on an osteopathic structural exam other than those noted in the History and Physical/Consult. Vitals: Vital Signs Temp Pulse Pulse Resp BP BP Pulse Ox 12/28/20 11:57 97.7 F 77 16 122/87 99 12/28/20 08:30 70 18 12/28/20 08:05 98.1 F 70 16 127/83 97 12/28/20 03:46 74 18 105/67 99 12/28/20 01:30 71 16 12/27/20 23:25 71 16 114/73 97 12/27/20 20:00 97.8 F 73 16 117/80 97 Intake and Output 12/28/20 12/28/20 12/28/20 06:59 14:59 22:59 Intake Total 720 Balance 720 Intake: Oral 720 Other: Voiding Method Toilet Toilet # Voids 1 2 Weight 105.5 kg No acute distress, oriented 3. No supplemental oxygen. HEENT examination is grossly unremarkable. Mucous membranes are moist. No oral lesions. Neck supple. Full range of motion. No adenopathy thyromegaly or neck vein distention. Cardiovascular examination reveals regular rhythm rate. S1-S2 normal. No S3 or S4. No discernible murmur noted. Heart rate 77 bpm. Lungs reveal clear breath sounds. Her sounds are equal bilaterally. No adventitious lung sounds including wheezes rhonchi or crackles. Abdomen soft bowel sounds are heard. No masses or tenderness. Extremities are intact. No cyanosis clubbing or edema. Skin is without rash or lesion. Neurologic examination is brief but nonfocal. Results - Laboratory Findings CBC and BMP: 12/25/20 06:50 12/28/20 09:30 Abnormal lab findings: Abnormal Labs 12/24/20 12/25/20 12/27/20 10:40 06:50 09:08 Creatinine 0.62 L Glucose 126 H 112 H 66 L - Diagnostic Findings CT scan - chest: image reviewed Assessment and Plan Assessment: Solitary pulmonary nodule, about 1.7 by 1.6 cm in size, in the area of the right middle lobe. This could represent an early lung cancer given his smoking history. A outpatient PET scan will be ordered. New-onset atrial fibrillation with RVR. Status post cardiac catheterization, relatively normal coronary arteries. Possible autoimmune disease. Questionable myopathy, status post muscle biopsy. History of fatty liver. History of chronic sinus disease. Plan: Plan dated 10/27/2021. The patient will have an outpatient PET scan ordered. We have made him a f ollow-up to see me in the office once he is discharged from the hospital. I told him, he may need a biopsy, or, depending on the PET scan result, we may just observe the lesion with serial computed tomography scans. Suggestions are forthcoming. We will continue to follow. We made an appointment to see me in the office. No additional recommendations are made. He quit smoking back in 2014. Time with Patient: Greater than 30
[2020-12-28] MEDS: LOSARTAN 25 MG TAB PO SCH (20:39)
[2020-12-28] MEDS ORDERED: METOPROLOL TARTRATE 50 MG TAB PO STA (20:47)
[2020-12-28] MEDS ORDERED: DILTIAZEM DRIP BOLUS FROM BAG 1 MG SOLN IV ONE (22:37)
[2020-12-28] MEDS: DILTIAZEM 125 MG in SODIUM CHLORIDE 0.9% 100 ML IV SCH (22:50)
[2020-12-29 07:51] LABS: African American GFR (CKD) >90 (>60 ml/min/1.73 sqM); Anion Gap 8 mmol/L; Blood Urea Nitrogen 16 mg/dL (9-20); Calcium 10.1 mg/dL (8.4-10.2); Carbon Dioxide 30 mmol/L (22-30); Chloride 100 mmol/L (98-107); Glucose 111 mg/dL (74-99); Non-African American GFR(CKD) >90 (>60 ml/min/1.73 sqM); Potassium 4.4 mmol/L (3.5-5.1); Sodium 138 mmol/L (137-145)
[2020-12-29] MEDS: APIXABAN 5 MG TAB PO SCH ×2 (09:21→20:35)
[2020-12-29] MEDS: SOTALOL 80 MG TAB PO SCH ×2 (09:21→20:35)
[2020-12-29] MEDS: SPIRONOLACTONE 25 MG TAB PO SCH (09:21)
[2020-12-29] MEDS: METOPROLOL SUCCINATE (ER) 50 MG TAB.ER.24H PO SCH ×2 (09:21→20:35)
[2020-12-29] MEDS: MAGNESIUM OXIDE 400 MG TAB PO SCH (09:21)
[2020-12-29] MEDS: DILTIAZEM 125 MG in SODIUM CHLORIDE 0.9% 100 ML IV SCH (09:22)
--- NOTE | 2020-12-29 13:11 | P.PN ---
Subjective Progress Note Date: 12/29/20 Principal diagnosis: Abnormal computed tomography scan. 50-year-old male that I am asked to see for an abnormal computed tomography scan showing a suspicious 1.7 x 1.6 cm central right middle lobe nodule. There was no thoracic adenopathy. A PET/CT fusion study was recommended. The patient had a cardiac catheterization recently. In addition, he recently had a consultation with the clinical specialist. He is not having any lung issues at this time. The patient has a history of hypertension, and osteoarthritis, as well as fatty liver, possible autoimmune disease, among other things. The patient told me that his cardiac catheterization was within normal range. In the process of evaluating the patient, he was discovered to have the right-sided lung lesion. I explained to him that this can be worked up as an outpatient and I will probably go ahead and order a PET scan. He apparently started smoking at the age of 14. He quit smoking about 5 years ago in October 2015. He smoked about a pack a day. There is a family history of prostate cancer, colon cancer, and skin cancer, but not lung cancer. Again the patient denies all pulmonary complaints including shortness of breath, chest tightness, cough, wheezing, phlegm production, or hemoptysis. Progress note dated 12/29/2020. The initial plan for this patient was to allow the patient to be discharged ho me, follow-up with me in the office, and get him scheduled for an outpatient PET scan. If the PET scan was negative, we would follow the lesion in the right lung, with serial computed tomography scan in. At the PET scan was positive, the plan would be to do a navigational bronchoscopy on this patient. Today, we met with the leather tacker seeing this patient, and he wanted us to proceed with a navigational procedure even before doing the PET scan. I discussed this with the patient. He is a bit reluctant. He will give us some thought. Currently, he is on a factor X a inhibitor. That would have to be stopped and he will be placed on IV heparin. We could do the procedure on Sunday. I was very honest with the leather tacker and the patient and said that the lesion is relatively small and his location and a central position in the right midlung, would make it difficult target. Nonetheless, if he agrees, we can do the procedure on [place]. Currently, the patient denies all pulmonary complaints including shortness of breath, chest tightness, cough, wheezing, and phlegm production. Objective - Vital Signs Vital signs: Vital Signs Temp 97.8 F 12/29/20 11:59 Pulse 63 12/29/20 11:59 Resp 18 12/29/20 11:59 BP 110/78 12/29/20 11:59 Pulse Ox 97 12/29/20 11:59 Intake & Output 12/28/20 12/29/20 12/29/20 18:59 06:59 18:59 Intake Total 1680 341.333 Balance 1680 341.333 Weight 105.7 kg Intake: Intake, IV Titration 105.333 Amount Diltiazem 125 mg In 105.333 Sodium Chloride 0.9% 100 ml @ 10 MG/HR 10 mls/hr IV .[id number] [facility] Rx#: [id number] Oral 1680 236 Other: Voiding Method Toilet Toilet Toilet # Voids 2 2 1 - Exam No acute distress, oriented 3. No supplemental oxygen. HEENT examination is grossly unremarkable. Mucous membranes are moist. No oral lesions. Neck supple. Full range of motion. No adenopathy thyromegaly or neck vein distention. Cardiovascular examination reveals regular rhythm rate. S1-S2 normal. No S3 or S4. No discernible murmur noted. Heart rate 63 bpm. Lungs reveal clear breath sounds. Her sounds are equal bilaterally. No adventitious lung sounds including wheezes rhonchi or crackles. Abdomen soft bowel sounds are heard. No masses or tenderness. Extremities are intact. No cyanosis clubbing or edema. Skin is without rash or lesion. Neurologic examination is brief but nonfocal. - Labs CBC & Chem 7: 12/25/20 06:50 12/29/20 07:17 Labs: Abnormal Lab Results - Last 24 Hours (Table) 12/29/20 Range/Units 07:17 Glucose 111 H (74-99) mg/dL Assessment and Plan Assessment: Solitary pulmonary nodule, about 1.7 by 1.6 cm in size, in the area of the right middle lobe. This could represent an early lung cancer given his smoking history. A outpatient PET scan will be ordered. New-onset atrial fibrillation with RVR. Status post cardiac catheterization, relatively normal coronary arteries. Possible autoimmune disease. Questionable myopathy, status post muscle biopsy. History of fatty liver. History of chronic sinus disease. Plan: Plan dated 10/27/2021. The patient will have an outpatient PET scan ordered. We have made him a follow-up to see me in the office once he is discharged from the hospital. I told him, he may need a biopsy, or, depending on the PET scan result, we may just observe the lesion with serial computed tomography scans. Suggestions are forthcoming. We will continue to follow. We made an appointment to see me in the office. No additional recommendations are made. He quit smoking back in 2014. Plan dated 12/29/2020. Today, I discussed the possibility of doing a electromagnetic navigational bronchoscopy on the patient before the PET scan is ordered. He's a bit reluctant to do that, he can give us some thought. If he agrees, we can do it on Sunday. He'll be done in the operating room under general anesthesia. We will have to stop the Eliquis, and put the patient on IV heparin. The leather tacker tells me today that the patient is stable for this procedure. Additional recommendations and suggestions are forthcoming. We will follow along. Should the patient decline, we will see him in the office, and order an outpatient PET scan, and proceed from there. Time with Patient: Less than 30
--- NOTE | 2020-12-29 13:54 | P.PN ---
Subjective He is seen and examined sitting up in the recliner in no acute distress. Last night he had another episode of RVR with heart rates in the 150's. Additional lopressor was given and IV cardizem was again initiated. He is now currently in sinus mechanism with rates in the 70's. Blood pressure 115/67. Pulmonary has seen him and is recommending outpatient PET and possible biopsy of the lung nodule. Repeat EKG this morning revealed an absolute QT of 400 ms. Lipitor data reviewed, sodium 138, potassium 4.4, magnesium 2.0 and creatinine 0.8. GENERAL: Well-appearing, well-nourished and in no acute distress. NECK: Supple without JVD or thyromegaly. LUNGS: Breath sounds clear to auscultation bilaterally. Respiration equal and unlabored. No wheezes, rales or rhonchi. HEART: Regular rate and rhythm without murmurs, rubs or gallops. S1 and S2 heard . EXTREMITIES: Normal range of motion, no edema. No clubbing or cyanosis. Peripheral pulses intact. 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 Continue sotalol and daily EKGs. Full effect of sotalol will take 5 doses to be in the system. He has received 3 thus far. Consider possible ablation on Sunday depending on his rhythm with sotalol. Further recommendations to follow based upon clinical course. Nurse Practitioner note has been reviewed, I agree with a documented findings and plan of care. Patient was seen and examined. Objective - Vital Signs Vital signs: Vital Signs Temp 97.8 F 12/29/20 11:59 Pulse 63 12/29/20 11:59 Resp 18 12/29/20 11:59 BP 110/78 12/29/20 11:59 Pulse Ox 97 12/29/20 11:59 Intake & Output 12/28/20 12/29/20 12/29/20 18:59 06:59 18:59 Intake Total 1680 341.333 Balance 1680 341.333 Weight 105.7 kg Intake: Intake, IV Titration 105.333 Amount Diltiazem 125 mg In 105.333 Sodium Chloride 0.9% 100 ml @ 10 MG/HR 10 mls/hr IV .[id number] [facility] Rx#: [id number] Oral 1680 236 Other: Voiding Method Toilet Toilet Toilet # Voids 2 2 1 - Labs CBC & Chem 7: 12/25/20 06:50 12/29/20 07:17 Labs: Abnormal Lab Results - Last 24 Hours (Table) 12/29/20 Range/Units 07:17 Glucose 111 H (74-99) mg/dL
--- NOTE | 2020-12-29 18:10 | P.PN ---
Progress Note - Text Progress Note Date: 12/29/20 Presenting complaint: Rapid heart rate History of presenting complaint: Patient is a pleasant 50-year-old gentleman was admitted for elective cardiac catheterization because of abnormal stress test cardiac ablation sugars showed clean coronaries. Patient was subsequently discharged patient went into atrial fibrillation with heart rate in 170s patient ended up coming back was started on Cardizem drip Flecanaide, which was subsequently discontinued and patient is presently on sotalol. Patient's daily is being monitored. Patient also has myopathy for which patient is being evaluated with a muscle biopsy. Patient had a computed tomography scan of the chest which showed a small 1.7-1.4 cm nodule for which pulmonology was consulted. Patient denied any chest discomfort at this time heart rate is presently controlled patient denied any fever chills nausea vomiting. Electro-physiology evaluated the patient. Patient had a normal ejection fraction. Patient used to be a smoker quit smoking years ago does have history of COPD Today-sitting up. No chest pain and palpitation. Patient is off Cardizem drip. On sotalol 80 mg twice a day. Also on eliquis. Review of systems: Was done for constitutional, cardiovascular, GI, pulmonary. relevant finding as above Active Medications Acetaminophen (Acetaminophen Tab 325 Mg Tab) 650 mg PO Q6HR PRN PRN Reason: Pain Last Admin: 12/26/20 01:07 Dose: 650 mg Documented by: Alprazolam (Alprazolam 0.25 Mg Tab) 0.25 mg PO Q6HR PRN PRN Reason: Mild Anxiety Stop: 01/23/21 06:21 Alprazolam (Alprazolam 0.5 Mg Tab) 0.5 mg PO Q6HR PRN PRN Reason: Moderate Anxiety Stop: 01/23/21 06:21 Apixaban (Apixaban 5 Mg Tab) 5 mg PO BID [facility] Last Admin: 12/29/20 09:21 Dose: 5 mg Documented by: Losartan Potassium (Losartan 25 Mg Tab) 25 mg PO HS [facility] Stop: 01/23/21 21:01 Last Admin: 12/28/20 20:39 Dose: 25 mg Documented by: Magnesium Oxide (Magnesium Oxide 400 Mg Tab) 400 mg PO DAILY [facility] Last Admin: 12/29/20 09:21 Dose: 400 mg Documented by: Metoprolol Succinate (Metoprolol Succinate (Er) 50 Mg Tab.Er.24h) 50 mg PO BID [facility] Last Admin: 12/29/20 09:21 Dose: 50 mg Documented by: Nitroglycerin (Nitroglycerin Sl Tabs 0.4 Mg Tab) 0.4 mg SUBLINGUAL Q5M PRN PRN Reason: Chest Pain Stop: 01/23/21 06:21 Sotalol HCl (Sotalol 80 Mg Tab) 80 mg PO BID [facility] Last Admin: 12/29/20 09:21 Dose: 80 mg Documented by: Spironolactone (Spironolactone 25 Mg Tab) 25 mg PO DAILY [facility] Last Admin: 12/29/20 09:21 Dose: 25 mg Documented by: On examination: VITAL SIGNS: 97.6, 91, 16, 110/70, 97% room air GENERAL APPEARANCE: BMI 33.4, sitting up in a chair, comfortable HEENT: Normal external appearance of nose and ear. Oral cavity normal EYES: Pupils equal. Conjunctiva normal. NECK: JVD not raised. Mass not palpable. RESPIRATORY: Respiratory effort normal. Lungs clear to auscultation. CARDIOVASCULAR: Heart sounds irregular, no edema. ABDOMEN: Soft. Liver and spleen not palpable. No tenderness. No mass palpable. PSYCHIATRY: Alert and oriented x3. Mood and affect normal. INVESTIGATIONS, reviewed in the clinical context: White count 6.2 hemoglobin 14.7 platelets 2:30 potassium 4.4 creatinine 0.8 TSH 2.5 Assessment: -Recurrent atrial tachycardia with RVR -Nonsustained ventricular tachycardia -Left bundle-branch block with IVCD and left anterior vascular block -Prolonged QT interval -Muscle disorder cause unknown-patient had a muscle biopsy and being followed by Dr. Mueller at [facility]. At this present time cause unknown. He is having wasting of muscles of the calf, generalized muscle weakness. Unable to stand on tip toes -Hepatic steatosis -Obesity BMI 33.4 -1.71.6 cm Central right middle lobe nodule-lung: Outpatient PET scan and being followed by Dr. Kwong Plan: Per cardiology Cardizem drip was discontinued. Patient is on sotalol. Possible ablation on Sunday. Depending on clinical course. Discussed with the patient.
[2020-12-29] MEDS: LOSARTAN 25 MG TAB PO SCH (20:35)
[2020-12-30] MEDS: SOTALOL 80 MG TAB PO SCH ×2 (08:17→20:16)
[2020-12-30] MEDS: APIXABAN 5 MG TAB PO SCH ×2 (08:17→20:16)
[2020-12-30] MEDS: MAGNESIUM OXIDE 400 MG TAB PO SCH (08:17)
[2020-12-30] MEDS: METOPROLOL SUCCINATE (ER) 50 MG TAB.ER.24H PO SCH ×2 (08:17→20:16)
[2020-12-30] MEDS: SPIRONOLACTONE 25 MG TAB PO SCH (08:17)
[2020-12-30 11:25] VITALS: BMI 33.1
--- NOTE | 2020-12-30 12:24 | P.PN ---
Subjective Progress Note Date: 12/30/20 Principal diagnosis: Lung nodule, atrial tachycardia 50-year-old male that I am asked to see for an abnormal computed tomography scan showing a suspicious 1.7 x 1.6 cm central right middle lobe nodule. There was no thoracic adenopathy. A PET/CT fusion study was recommended. The patient had a cardiac catheterization recently. In addition, he recently had a consultation with the research investigator. He is not having any lung issues at this time. The patient has a history of hypertension, and osteoarthritis, as well as fatty liver, possible autoimmune disease, among other things. The patient told me that his cardiac catheterization was within normal range. In the process of evaluating the patient, he was discovered to have the right-sided lung lesion. I explained to him that this can be worked up as an outpatient and I will probably go ahead and order a PET scan. He apparently started smoking at the age of 14. He quit smoking about 5 years ago in October 2015. He smoked about a pack a day. There is a family history of prostate cancer, colon cancer, and skin cancer, but not lung cancer. Again the patient denies all pulmonary complaints including shortness of breath, chest tightness, cough, wheezing, phlegm production, or hemoptysis. Progress note dated 12/29/2020. The initial plan for this patient was to allow the patient to be discharged home, follow-up with me in the office, and get him scheduled for an outpatient PET scan. If the PET scan was negative, we would follow the lesion in the right lung, with serial computed tomography scan in. At the PET scan was positive, the plan would be to do a navigational bronchoscopy on this patient. Today, we met with the sectional belt mold assembler seeing this patient, and he wanted us to proceed with a navigational procedure even before doing the PET scan. I discussed this with the patient. He is a bit reluctant. He will give us some thought. Currently, he is on a factor X a inhibitor. That would have to be stopped and he will be placed on IV heparin. We could do the procedure on Sunday. I was very honest with the sectional belt mold assembler and the patient and said that the lesion is relatively small and his location and a central position in the right midlung, would make it difficult target. Nonetheless, if he agrees, we can do the procedure on Sunday. Currently, the patient denies all pulmonary complaints including shortness of breath, chest tightness, cough, wheezing, and phlegm production. The patient is seen today 12/30/2020 in follow-up on the selective care unit. He is currently resting comfortably in bed. Awake and alert in no acute distress. He denies any shortness of breath, cough or congestion. No hemoptysis. Maintaining O2 saturation in the 90s on room air. He is afebrile. He is anticoagulated with Eliquis. Remains on sotalol, metoprolol. Objective - Vital Signs Vital signs: Vital Signs Temp 97.8 F 12/30/20 04:00 Pulse 84 12/30/20 04:00 Resp 16 12/30/20 04:00 BP 122/72 12/30/20 04:00 Pulse Ox 100 12/30/20 04:00 Intake & Output 12/29/20 12/30/20 12/30/20 18:59 06:59 18:59 Intake Total 459.333 236 Balance 459.333 236 Weight 104.9 kg 104.9 kg Intake: Intake, IV Titration 105.333 Amount Diltiazem 125 mg In 105.333 Sodium Chloride 0.9% 100 ml @ 10 MG/HR 10 mls/hr IV .[id number] [facility] Rx#: [id number] Oral 354 [id number] Other: Voiding Method Toilet Toilet # Voids 3 2 1 - Exam GENERAL EXAM: Alert, active, pleasant 50-year-old gentleman, on room air, comfortable in no apparent distress. HEAD: Normocephalic. EYES: Normal reaction of pupils, equal size. NOSE: Clear with pink turbinates. THROAT: No erythema or exudates. NECK: No masses, no JVD. CHEST: No chest wall deformity. LUNGS: Equal air entry with no crackles, wheeze, rhonchi or dullness. CVS: S1 and S2 normal with no audible murmur, regular rhythm. ABDOMEN: No hepatosplenomegaly, normal bowel sounds, no guarding or rigidity. SPINE: No scoliosis or deformity SKIN: No rashes CENTRAL NERVOUS SYSTEM: No focal deficits, tone is normal in all 4 extremities. EXTREMITIES: There is no peripheral edema. No clubbing, no cyanosis. Peripheral pulses are intact. - Labs CBC & Chem 7: 12/25/20 06:50 12/29/20 07:17 Assessment and Plan Assessment: Solitary pulmonary nodule, about 1.7 by 1.6 cm in size, in the area of the right middle lobe. This could represent an early lung cancer given his smoking history. A outpatient PET scan will be ordered. New-onset atrial fibrillation with RVR. Status post cardiac catheterization, relatively normal coronary arteries. Possible autoimmune disease. Questionable myopathy, status post muscle biopsy. History of fatty liver. History of chronic sinus disease. Plan: The patient was seen and evaluated by Dr. Kwong He remains anticoagulated with Eliquis Plan is for atrial ablation on 01/03/2021 We'll continue with plans for outpatient PET scan prior to biopsies of the lung nodule I, the cosigning physician, performed a history & physical examination of the patient. Lungs sounds are clear. Maintaining good O2 saturations in the 90s on room air. I discussed the assessment and plan of care with my nurse practitioner, Fannie Vela. I attest to the above note as dictated by her.
[2020-12-30] MEDS: DILTIAZEM 125 MG in SODIUM CHLORIDE 0.9% 100 ML IV SCH (12:57)
--- NOTE | 2020-12-30 13:37 | P.PN ---
Subjective Patient is back in atrial tachycardia with RVR He symptomatic from it and he feels flushed and dizzy On examination pulse rate is 157 beats a minute is tachycardic is afebrile 97.8F Blood pressure 102/68 mmHg Breath sounds are reduced bilaterally no rhonchi no crackles Heart sounds S1-S2 normal, tachycardic no this morning was Abdomen soft Extremity warm no edema Impression recurrent atrial tachycardia despite metoprolol and sotalol Patient is breaking through on sotalol He has left bundle branch block pattern mildly prolonged VA interval which is further increased in duration with sotalol and metoprolol Muscle weakness and myopathy, muscle biopsy does not give a call from a tree onset Small lung mass without any evidence for lymphadenopathy Plan I discussed ms Dr. Kwong Activity detailed discussion with the patient explained the rationale for proceeding with the EP study He has failed sotalol. In addition he has conduction system disease He is experiencing atrial tachycardia with RVR He has an underlying left bundle branch block pattern I discussed the procedure for EP study and ablation. Pros and cons were discussed. Technique for mapping and ablation was discussed. Risks of the procedure were discussed I would proceed with an EP study and atrial tachycardia ablation first and then subsequently received with a PET CT to evaluate the lung mass and consider possible biopsy thereafter Objective - Vital Signs Vital signs: Vital Signs Temp 97.8 F 12/30/20 04:00 Pulse 84 12/30/20 04:00 Resp 16 12/30/20 04:00 BP 122/72 12/30/20 04:00 Pulse Ox 100 12/30/20 04:00 Intake & Output 12/29/20 12/30/20 12/30/20 18:59 06:59 18:59 Intake Total 459.333 236 Balance 459.333 236 Weight 104.9 kg 104.9 kg Intake: Intake, IV Titration 105.333 Amount Diltiazem 125 mg In 105.333 Sodium Chloride 0.9% 100 ml @ 10 MG/HR 10 mls/hr IV .[id number] [facility] Rx#: [id number] Oral 354 236 Other: Voiding Method Toilet Toilet # Voids 3 2 1 - Labs CBC & Chem 7: 12/25/20 06:50 12/29/20 07:17
[2020-12-30] MEDS: LOSARTAN 25 MG TAB PO SCH (20:16)
--- NOTE | 2020-12-30 21:22 | P.PN ---
Progress Note - Text Progress Note Date: 12/30/20 Presenting complaint: Rapid heart rate History of presenting complaint: Patient is a pleasant 50-year-old gentleman was admitted for elective cardiac catheterization because of abnormal stress test cardiac ablation sugars showed clean coronaries. Patient was subsequently discharged patient went into atrial fibrillation with heart rate in 170s patient ended up coming back was started on Cardizem drip Flecanaide, which was subsequently discontinued and patient is presently on sotalol. Patient's daily is being monitored. Patient also has myopathy for which patient is being evaluated with a muscle biopsy. Patient had a computed tomography scan of the chest which showed a small 1.7-1.4 cm nodule for which pulmonology was consulted. Patient denied any chest discomfort at this time heart rate is presently controlled patient denied any fever chills nausea vomiting. Electro-physiology evaluated the patient. Patient had a normal ejection fraction. Patient used to be a smoker quit smoking years ago does have history of COPD Today-patient went back into atrial tachycardia with RVR. [place] dizzy tired. Review of systems: Was done for constitutional, cardiovascular, GI, pulmonary. relevant finding as above Active Medications Acetaminophen (Acetaminophen Tab 325 Mg Tab) 650 mg PO Q6HR PRN PRN Reason: Pain Last Admin: 12/26/20 01:07 Dose: 650 mg Documented by: Alprazolam (Alprazolam 0.25 Mg Tab) 0.25 mg PO Q6HR PRN PRN Reason: Mild Anxiety Stop: 01/23/21 06:21 Alprazolam (Alprazolam 0.5 Mg Tab) 0.5 mg PO Q6HR PRN PRN Reason: Moderate Anxiety Stop: 01/23/21 06:21 Apixaban (Apixaban 5 Mg Tab) 5 mg PO BID [facility] Last Admin: 12/30/20 20:16 Dose: 5 mg Documented by: Sodium Chloride (Saline 0.9%) 1,000 mls @ 20 mls/hr IV .Q24H [facility] Diltiazem HCl 125 mg/ Sodium (Chloride) 125 mls @ 5 mls/hr IV .Q24H [facility] Last Admin: 12/30/20 12:57 Dose: 5 mg/hr, 5 mls/hr Documented by: Losartan Potassium (Losartan 25 Mg Tab) 25 mg PO [facility] Stop: 01/23/21 21:01 Last Admin: 12/30/20 20:16 Dose: 25 mg Documented by: Magnesium Oxide (Magnesium Oxide 400 Mg Tab) 400 mg PO DAILY [facility] Last Admin: 12/30/20 08:17 Dose: 400 mg Documented by: Metoprolol Succinate (Metoprolol Succinate (Er) 50 Mg Tab.Er.24h) 50 mg PO BID [facility] Last Admin: 12/30/20 20:16 Dose: 50 mg Documented by: Nitroglycerin (Nitroglycerin Sl Tabs 0.4 Mg Tab) 0.4 mg SUBLINGUAL Q5M PRN PRN Reason: Chest Pain Stop: 01/23/21 06:21 Sotalol HCl (Sotalol 80 Mg Tab) 80 mg PO BID [facility] Stop: 12/31/20 22:00 Last Admin: 12/30/20 20:16 Dose: 80 mg Documented by: Spironolactone (Spironolactone 25 Mg Tab) 25 mg PO DAILY [facility] Last Admin: 12/30/20 08:17 Dose: 25 mg Documented by: On examination: VITAL SIGNS: 97.5, 140, 18, 94/71, 97% room air GENERAL APPEARANCE: Sitting up in a chair, awake HEENT: Normal external appearance of nose and ear. Oral cavity normal EYES: Pupils equal. Conjunctiva normal. NECK: JVD not raised. Mass not palpable. RESPIRATORY: Respiratory effort normal. Lungs clear to auscultation. CARDIOVASCULAR: Heart sounds irregular, no edema. ABDOMEN: Soft. Liver and spleen not palpable. No tenderness. No mass palpable. PSYCHIATRY: Alert and oriented x3. Mood and affect normal. INVESTIGATIONS, reviewed in the clinical context: White count 6.2 hemoglobin 14.7 platelets 2:30 potassium 4.4 creatinine 0.8 TSH 2.5 Assessment: -Recurrent atrial tachycardia with RVR. Has not responded to sotalol. He'll be having an EP study. At possible ablation -Nonsustained ventricular tachycardia -Left bundle-branch block with IVCD and left anterior vascular block -Prolonged QT interval -Muscle disorder cause unknown-patient had a muscle biopsy and being followed by Dr. Mueller at [facility]. At this present time cause unknown. He is having wasting of muscles of the calf, generalized muscle weakness. Unable to stand on tip toes -Hepatic steatosis -Obesity BMI 33.4 -1.71.6 cm Central right middle lobe nodule-lung: Outpatient PET scan and being followed by Dr. Kwong Plan: Patient remains in sotalol. Eliquis. Plan this patient to proceed with EP study with possible ablation on Sunday. Follow Dr. Pérez.
[2020-12-31] MEDS: METOPROLOL SUCCINATE (ER) 50 MG TAB.ER.24H PO SCH ×2 (08:44→20:08)
[2020-12-31] MEDS: SOTALOL 80 MG TAB PO SCH ×2 (08:44→20:09)
[2020-12-31] MEDS: APIXABAN 5 MG TAB PO SCH ×2 (08:45→20:08)
[2020-12-31] MEDS: MAGNESIUM OXIDE 400 MG TAB PO SCH (08:45)
[2020-12-31] MEDS: SPIRONOLACTONE 25 MG TAB PO SCH (08:45)
--- NOTE | 2020-12-31 12:20 | P.PN ---
Subjective Progress Note Date: 12/31/20 Principal diagnosis: Lung nodule, atrial tachycardia 50-year-old male that I am asked to see for an abnormal computed tomography scan showing a suspicious 1.7 x 1.6 cm central right middle lobe nodule. There was no thoracic adenopathy. A PET/CT fusion study was recommended. The patient had a cardiac catheterization recently. In addition, he recently had a consultation with the veterinary anatomist. He is not having any lung issues at this time. The patient has a history of hypertension, and osteoarthritis, as well as fatty liver, possible autoimmune disease, among other things. The patient told me that his cardiac catheterization was within normal range. In the process of evaluating the patient, he was discovered to have the right-sided lung lesion. I explained to him that this can be worked up as an outpatient and I will probably go ahead and order a PET scan. He apparently started smoking at the age of 14. He quit smoking about 5 years ago in October 2015. He smoked about a pack a day. There is a family history of prostate cancer, colon cancer, and skin cancer, but not lung cancer. Again the patient denies all pulmonary complaints including shortness of breath, chest tightness, cough, wheezing, phlegm production, or hemoptysis. Progress note dated 12/29/2020. The initial plan for this patient was to allow the patient to be discharged home, follow-up with me in the office, and get him scheduled for an outpatient PET scan. If the PET scan was negative, we would follow the lesion in the right lung, with serial computed tomography scan in. At the PET scan was positive, the plan would be to do a navigational bronchoscopy on this patient. Today, we met with the technical delivery manager seeing this patient, and he wanted us to proceed with a navigational procedure even before doing the PET scan. I discussed this with the patient. He is a bit reluctant. He will give us some thought. Currently, he is on a factor X a inhibitor. That would have to be stopped and he will be placed on IV heparin. We could do the procedure on Sunday. I was very honest with the technical delivery manager and the patient and said that the lesion is relatively small and his location and a central position in the right midlung, would make it difficult target. Nonetheless, if he agrees, we can do the procedure on Sunday. Currently, the patient denies all pulmonary complaints including shortness of breath, chest tightness, cough, wheezing, and phlegm production. The patient is seen today 12/30/2020 in follow-up on the selective care unit. He is currently resting comfortably in bed. Awake and alert in no acute distress. He denies any shortness of breath, cough or congestion. No hemoptysis. Maintaining O2 saturation in the 90s on room air. He is afebrile. He is anticoagulated with Eliquis. Remains on sotalol, metoprolol. The patient is seen today 12/31/2020 in follow-up on the selective care unit. He is currently sitting up in a chair at the bedside. Awake and alert in no acute distress. He continues to maintain good O2 saturations in the 90s on room air. He is afebrile. Hemodynamically stable. He is still on Cardizem drip at 5 mg per hour. Anticoagulated with Eliquis. Objective - Vital Signs Vital signs: Vital Signs Temp 97.7 F 12/31/20 08:00 Pulse 93 12/31/20 08:00 Resp 18 12/31/20 08:00 BP 118/78 12/31/20 08:00 Pulse Ox 96 12/31/20 08:00 Intake & Output 12/30/20 12/31/20 12/31/20 18:59 06:59 18:59 Intake Total 1016 640 240 Balance 1016 640 240 Weight 104.9 kg 105.1 kg Intake: Oral 1016 640 240 Other: Voiding Method Toilet Toilet Toilet # Voids 1 1 - Exam GENERAL EXAM: Alert, active, pleasant 50-year-old gentleman, on room air, comfortable in no apparent distress. HEAD: Normocephalic. EYES: Normal reaction of pupils, equal size. NOSE: Clear with pink turbinates. THROAT: No erythema or exudates. NECK: No masses, no JVD. CHEST: No chest wall deformity. LUNGS: Equal air entry with no crackles, wheeze, rhonchi or dullness. CVS: S1 and S2 normal with no audible murmur, regular rhythm. ABDOMEN: No hepatosplenomegaly, normal bowel sounds, no guarding or rigidity. SPINE: No scoliosis or deformity SKIN: No rashes CENTRAL NERVOUS SYSTEM: No focal deficits, tone is normal in all 4 extremities. EXTREMITIES: There is no peripheral edema. No clubbing, no cyanosis. Peripheral pulses are intact. - Labs CBC & Chem 7: 12/25/20 06:50 12/29/20 07:17 Assessment and Plan Assessment: Solitary pulmonary nodule, about 1.7 by 1.6 cm in size, in the area of the right middle lobe. This could represent an early lung cancer given his smoking history. A outpatient PET scan will be ordered. New-onset atrial fibrillation with RVR. Status post cardiac catheterization, relatively normal coronary arteries. Possible autoimmune disease. Questionable myopathy, status post muscle biopsy. History of fatty liver. History of chronic sinus disease. Plan: The patient was seen and evaluated by Dr. Kwong He remains anticoagulated with Eliquis Plan is for atrial ablation on 01/03/2021 We'll continue with plans for outpatient PET scan prior to biopsies of the lung nodule We will follow on an as-needed basis I, the cosigning physician, performed a history & physical examination of the patient. Lungs sounds are clear. Maintaining good O2 saturations in the 90s on room air. I discussed the assessment and plan of care with my nurse practitioner, Fannie Vela. I attest to the above note as dictated by her.
--- NOTE | 2020-12-31 13:11 | P.PN ---
Subjective He is seen and examined sitting up in the recliner in no acute distress. He is currently maintained on Cardizem infusion. Heart rates have been better controlled in the previous 12 hours. Blood pressure 118/78 heart rate 93 afebrile maintaining oxygen saturation on room air. GENERAL: Well-appearing, well-nourished and in no acute distress. NECK: Supple without JVD or thyromegaly. LUNGS: Breath sounds clear to auscultation bilaterally. Respiration equal and unlabored. No wheezes, rales or rhonchi. HEART: Regular rate and rhythm without murmurs, rubs or gallops. S1 and S2 heard. EXTREMITIES: Normal range of motion, no edema. No clubbing or cyanosis. Peripheral pulses intact. ASSESSMENT Recurrent atrial tachycardia with RVR Nonsustained ventricular tachycardia Left bundle branch block with IVCD and left anterior fascicular block Prolonged NC interval Skeletal muscle disease Lung nodule Hypertension Former nicotine dependence PLAN Continue current medical regimen. Plan for EP study with possible ablation on Sunday. Nurse Practitioner note has been reviewed, I agree with a documented findings and plan of care. Patient was seen and examined. Objective - Vital Signs Vital signs: Vital Signs Temp 97.7 F 12/31/20 08:00 Pulse 93 12/31/20 08:00 Resp 18 12/31/20 08:00 BP 118/78 12/31/20 08:00 Pulse Ox 96 12/31/20 08:00 Intake & Output 12/30/20 12/31/20 12/31/20 18:59 06:59 18:59 Intake Total 1016 640 240 Balance 1016 640 240 Weight 104.9 kg 105.1 kg Intake: Oral 1016 640 240 Other: Voiding Method Toilet Toilet Toilet # Voids 1 1 - Labs CBC & Chem 7: 12/25/20 06:50 12/29/20 07:17
[2020-12-31] MEDS: LACTATED RINGERS 1,000 ML IV SCH (17:17)
[2020-12-31] MEDS: DILTIAZEM 125 MG in SODIUM CHLORIDE 0.9% 100 ML IV SCH (17:59)
--- NOTE | 2020-12-31 19:38 | P.PN ---
Progress Note - Text Progress Note Date: 12/31/20 Presenting complaint: Rapid heart rate History of presenting complaint: Patient is a pleasant 50-year-old gentleman was admitted for elective cardiac catheterization because of abnormal stress test cardiac ablation sugars showed clean coronaries. Patient was subsequently discharged patient went into atrial fibrillation with heart rate in 170s patient ended up coming back was started on Cardizem drip Flecanaide, which was subsequently discontinued and patient is presently on sotalol. Patient's daily is being monitored. Patient also has myopathy for which patient is being evaluated with a muscle biopsy. Patient had a computed tomography scan of the chest which showed a small 1.7-1.4 cm nodule for which pulmonology was consulted. Patient denied any chest discomfort at this time heart rate is presently controlled patient denied any fever chills nausea vomiting. Electro-physiology evaluated the patient. Patient had a normal ejection fraction. Patient used to be a smoker quit smoking years ago does have history of COPD. Placed on sotalol. Today-remains in atrial tachycardia with rapid ventricular rate. On Cardizem drip. Sotalol. Dizzy lightheaded. Sitting up in a chair.. Review of systems: Was done for constitutional, cardiovascular, GI, pulmonary. relevant finding as above Active Medications Acetaminophen (Acetaminophen Tab 325 Mg Tab) 650 mg PO Q6HR PRN PRN Reason: Pain Last Admin: 12/26/20 01:07 Dose: 650 mg Documented by: Alprazolam (Alprazolam 0.25 Mg Tab) 0.25 mg PO Q6HR PRN PRN Reason: Mild Anxiety Stop: 01/23/21 06:21 Alprazolam (Alprazolam 0.5 Mg Tab) 0.5 mg PO Q6HR PRN PRN Reason: Moderate Anxiety Stop: 01/23/21 06:21 Apixaban (Apixaban 5 Mg Tab) 5 mg PO BID [facility] Last Admin: 12/31/20 08:45 Dose: 5 mg Documented by: Sodium Chloride (Saline 0.9%) 1,000 mls @ 20 mls/hr IV .Q24H [facility] Diltiazem HCl 125 mg/ Sodium (Chloride) 125 mls @ 5 mls/hr IV .Q24H [facility] Last Admin: 12/31/20 17:59 Dose: Not Given Documented by: Lactated Ringer's (Lactated Ringers) 1,000 mls @ 20 mls/hr IV .Q24H [facility] Last Admin: 12/31/20 17:17 Dose: Not Given Documented by: Losartan Potassium (Losartan 25 Mg Tab) 25 mg PO HS [facility] Stop: 01/23/21 21:01 Last Admin: 12/30/20 20:16 Dose: 25 mg Documented by: Magnesium Oxide (Magnesium Oxide 400 Mg Tab) 400 mg PO DAILY [facility] Last Admin: 12/31/20 08:45 Dose: 400 mg Documented by: Metoprolol Succinate (Metoprolol Succinate (Er) 50 Mg Tab.Er.24h) 50 mg PO BID [facility] Last Admin: 12/31/20 08:44 Dose: 50 mg Documented by: Nitroglycerin (Nitroglycerin Sl Tabs 0.4 Mg Tab) 0.4 mg SUBLINGUAL Q5M PRN PRN Reason: Chest Pain Stop: 01/23/21 06:21 Sotalol HCl (Sotalol 80 Mg Tab) 80 mg PO BID [facility] Stop: 12/31/20 22:00 Last Admin: 12/31/20 08:44 Dose: 80 mg Documented by: Spironolactone (Spironolactone 25 Mg Tab) 25 mg PO DAILY [facility] Last Admin: 12/31/20 08:45 Dose: 25 mg Documented by: On examination: VITAL SIGNS: 98, 85, 14, 105/64, 94% room air GENERAL APPEARANCE: Sitting up in a chair, awake HEENT: Normal external appearance of nose and ear. Oral cavity normal EYES: Pupils equal. Conjunctiva normal. NECK: JVD not raised. Mass not palpable. RESPIRATORY: Respiratory effort normal. Lungs clear to auscultation. CARDIOVASCULAR: Heart sounds irregular, no edema. ABDOMEN: Soft. Liver and spleen not palpable. No tenderness. No mass palpable. PSYCHIATRY: Alert and oriented x3. Mood and affect normal. INVESTIGATIONS, reviewed in the clinical context: White count 6.2 hemoglobin 14.7 platelets 2:30 potassium 4.4 creatinine 0.8 TSH 2.5 Assessment: -Recurrent atrial tachycardia with RVR. Has not responded to sotalol. He'll be having an EP study. Possibly ablation on Sunday -Nonsustained ventricular tachycardia -Left bundle-branch block with IVCD and left anterior vascular block -Prolonged QT interval -Muscle disorder cause unknown-patient had a muscle biopsy and being followed by Dr. Mueller at [facility]. At this present time cause unknown. He is having wasting of muscles of the calf, generalized muscle weakness. Un able to stand on tip toes -Hepatic steatosis -Obesity BMI 33.4 -1.71.6 cm Central right middle lobe nodule-lung: Outpatient PET scan and being followed by Dr. Kwong Plan: Patient remains in sotalol. FINA Alonzo. Plan this patient to proceed with EP study with possible ablation on Sunday. Follow Dr. Pérez.
[2020-12-31] MEDS: LOSARTAN 25 MG TAB PO SCH (20:08)
[2021-01-01] MEDS: DILTIAZEM 125 MG in SODIUM CHLORIDE 0.9% 100 ML IV SCH ×2 (02:00→21:46)
[2021-01-01] MEDS: ACETAMINOPHEN TAB 325 MG TAB PO PRN (05:51)
[2021-01-01] MEDS: MAGNESIUM OXIDE 400 MG TAB PO SCH (08:25)
[2021-01-01] MEDS: APIXABAN 5 MG TAB PO SCH ×2 (08:25→21:46)
[2021-01-01] MEDS: SPIRONOLACTONE 25 MG TAB PO SCH (08:25)
--- NOTE | 2021-01-01 13:42 | P.PN ---
Subjective Patient is doing well. His resting comfortably in bed. He denies any chest discomfort. He does have occasional palpitations. He is on IV Cardizem No dizziness lightheadedness On examination he is afebrile 98.3F blood pressure 124/82 mmHg pulse rate in the 70s and 80s Breath sounds are clear no rhonchi no crackles Normal heart sounds normal breath sounds Normal S1 normal S2 no murmurs Abdomen is soft nontender Extremity is warm no edema Impression Recurrent symptomatic atrial tachycardia with RVR Underlying left bundle branch block pattern with a mildly prolonged NH interval Occasional runs of nonsustained ventricular tachycardia on telemetry Myopathy, status post biopsy, no clear-cut diagnosis made so far Normal coronary arteries Left ventricular ejection fraction 50% Bifascicular block Small lung nodule followed 1/2 cm but without any adenopathy in the mediastinum At this time and continue ELIQUIS. He is already failed sotalol. Today I'm stopping metoprolol in preparation for his EP study Treated with IV Cardizem ELIQUIS will continue unchanged He should get ELIQUIS in the morning of the procedure on Sunday Following this outpatient PET CT, consideration for possible biopsy of the nodule Cardiac MRI as an outpatient in the [facility] Follow-up with his neurologist at the [facility] Objective - Vital Signs Vital signs: Vital Signs Temp 98.3 F 01/01/21 08:00 Pulse 78 01/01/21 12:00 Resp 16 01/01/21 05:18 BP 124/82 01/01/21 12:00 Pulse Ox 99 01/01/21 12:00 Intake & Output 12/31/20 01/01/21 01/01/21 18:59 06:59 18:59 Intake Total 1765 700 240 Balance 1765 700 240 Weight 104.6 kg Intake: Intake, IV Titration 165 100 Amount Diltiazem 125 mg In 165 100 Sodium Chloride 0.9% 100 ml @ 5 MG/HR 5 mls/hr IV .Q24H [facility] Rx#:[id number] Oral 1600 600 240 Other: Voiding Method Toilet Toilet # Voids 2 - Labs CBC & Chem 7: 12/25/20 06:50 12/29/20 07:17
[2021-01-01] MEDS ORDERED: CALCIUM CARBONATE LIQUID 500 MG/5 ML CUP PO PRN (15:53)
[2021-01-01] MEDS: LACTATED RINGERS 1,000 ML IV SCH (17:04)
[2021-01-01] MEDS: FAMOTIDINE 20 MG TAB PO SCH ×2 (17:04→21:46)
--- NOTE | 2021-01-01 20:59 | P.PN ---
Progress Note - Text Progress Note Date: 01/01/21 Presenting complaint: Rapid heart rate History of presenting complaint: Patient is a pleasant 50-year-old gentleman was admitted for elective cardiac catheterization because of abnormal stress test cardiac ablation sugars showed clean coronaries. Patient was subsequently discharged patient went into atrial fibrillation with heart rate in 170s patient ended up coming back was started on Cardizem drip Flecanaide, which was subsequently discontinued and patient is presently on sotalol. Patient's daily is being monitored. Patient also has myopathy for which patient is being evaluated with a muscle biopsy. Patient had a computed tomography scan of the chest which showed a small 1.7-1.4 cm nodule for which pulmonology was consulted. Patient denied any chest discomfort at this time heart rate is presently controlled patient denied any fever chills nausea vomiting. Electro-physiology evaluated the patient. Patient had a normal ejection fraction. Patient used to be a smoker quit smoking years ago does have history of COPD. Placed on sotalol. Today-remains in atrial tachycardia . On Cardizem drip. Sotalol-stopped. Review of systems: Was done for constitutional, cardiovascular, GI, pulmonary. relevant finding as above Active Medications Acetaminophen (Acetaminophen Tab 325 Mg Tab) 650 mg PO Q6HR PRN PRN Reason: Pain Last Admin: 01/01/21 05:51 Dose: 650 mg Documented by: Alprazolam (Alprazolam 0.25 Mg Tab) 0.25 mg PO Q6HR PRN PRN Reason: Mild Anxiety Stop: 01/23/21 06:21 Alprazolam (Alprazolam 0.5 Mg Tab) 0.5 mg PO Q6HR PRN PRN Reason: Moderate Anxiety Stop: 01/23/21 06:21 Apixaban (Apixaban 5 Mg Tab) 5 mg PO BID [facility] Last Admin: 01/01/21 08:25 Dose: 5 mg Documented by: Calcium Carbonate/Glycine (Calcium Carbonate Liquid 500 Mg/5 Ml Cup) 500 mg PO TID-W/MEALS PRN PRN Reason: reflux Famotidine (Famotidine 20 Mg Tab) 20 mg PO BID [facility] Last Admin: 01/01/21 17:04 Dose: 20 mg Documented by: Sodium Chloride (Saline 0.9%) 1,000 mls @ 20 mls/hr IV .Q24H [facility] Diltiazem HCl 125 mg/ Sodium (Chloride) 125 mls @ 5 mls/hr IV .Q24H [facility] Last Admin: 01/01/21 02:00 Dose: 5 mg/hr, 5 mls/hr Documented by: Lactated Ringer's (Lactated Ringers) 1,000 mls @ 20 mls/hr IV .Q24H [facility] Last Admin: 01/01/21 17:04 Dose: 20 mls/hr Documented by: Losartan Potassium (Losartan 25 Mg Tab) 25 mg PO HS [facility] Stop: 01/23/21 21:01 Last Admin: 12/31/20 20:08 Dose: 25 mg Documented by: Magnesium Oxide (Magnesium Oxide 400 Mg Tab) 400 mg PO DAILY [facility] Last Admin: 01/01/21 08:25 Dose: 400 mg Documented by: Nitroglycerin (Nitroglycerin Sl Tabs 0.4 Mg Tab) 0.4 mg SUBLINGUAL Q5M PRN PRN Reason: Chest Pain Stop: 01/23/21 06:21 Spironolactone (Spironolactone 25 Mg Tab) 25 mg PO DAILY [facility] Last Admin: 01/01/21 08:25 Dose: 25 mg Documented by: On examination: VITAL SIGNS: 98.3, 83, 16, 113/76, 98% room air GENERAL APPEARANCE: Laying in bed, comfortable, awake HEENT: Normal external appearance of nose and ear. Oral cavity normal EYES: Pupils equal. Conjunctiva normal. NECK: JVD not raised. Mass not palpable. RESPIRATORY: Respiratory effort normal. Lungs clear to auscultation. CARDIOVASCULAR: Heart sounds irregular, no edema. ABDOMEN: Soft. Liver and spleen not palpable. No tenderness. No mass palpable. PSYCHIATRY: Alert and oriented x3. Mood and affect normal. INVESTIGATIONS, reviewed in the clinical context: White count 6.2 hemoglobin 14.7 platelets 2:30 potassium 4.4 creatinine 0.8 TSH 2.5 Assessment: -Recurrent atrial tachycardia with RVR. Has not responded to sotalol.- Discontinued He'll be having an EP study. With Possibly ablation on Sunday. Remains on IV Cardizem drip. -Nonsustained ventricular tachycardia -Left bundle-branch block with IVCD and left anterior vascular block -Prolonged QT interval -Muscle disorder cause unknown-patient had a muscle biopsy and being followed by Dr. Mueller at [facility]. At this present time cause unknown. He is having wasting of muscles of the calf, generalized muscle weakness. Unable to stand on tip toes -Hepatic steatosis -Obesity BMI 33.4 -1.71.6 cm Central right middle lobe nodule-lung: Outpatient PET scan and being followed by Dr. Kwong Plan: Sotalol discontinued. FINA Alonzo. Plan this patient to proceed with EP study with possible ablation on Sunday. Follow Dr. Pérez.
[2021-01-01] MEDS: LOSARTAN 25 MG TAB PO SCH (21:46)
[2021-01-02] MEDS: APIXABAN 5 MG TAB PO SCH ×2 (08:33→21:13)
[2021-01-02] MEDS: MAGNESIUM OXIDE 400 MG TAB PO SCH (08:33)
[2021-01-02] MEDS: FAMOTIDINE 20 MG TAB PO SCH ×2 (08:33→21:13)
[2021-01-02] MEDS: SPIRONOLACTONE 25 MG TAB PO SCH (08:33)
[2021-01-02] MEDS: DILTIAZEM 125 MG in SODIUM CHLORIDE 0.9% 100 ML IV SCH ×2 (08:36→17:26)
[2021-01-02] MEDS ORDERED: SODIUM CHLORIDE 0.65% NASAL SPRAY 44 ML BTL NASAL PRN (13:03)
--- NOTE | 2021-01-02 13:05 | P.PN ---
Subjective Progress Note Date: 01/02/21 The patient was interviewed and examined lying comfortably in bed. He states he has felt some palpitations, which are likely PVCs. He states these do create a tightness in his chest, however would not say that they're painful. He states he does feel his heart rates when he gets up and ambulates to the bathroom. No shortness of breath, orthopnea, dizziness, or lightheadedness. GENERAL: Well-appearing, well-nourished and in no acute distress. NECK: Supple without JVD or thyromegaly. LUNGS: Breath sounds clear to auscultation bilaterally. Respiration equal and unlabored. No wheezes, rales or rhonchi. HEART: Regular rate and rhythm without murmurs, rubs or gallops. S1 and S2 hea rd. EXTREMITIES: Normal range of motion, no edema. No clubbing or cyanosis. Peripheral pulses intact and strong. VITALS: Blood pressure 111/77, heart rate 84, SpO2 96% on room air, temperature 97.7F TELEMETRY: Sinus rhythm with first of atrial tachycardia to 170 bpm LABS: No recent lab work completed IMPRESSION: #1 symptomatic atrial tachycardia with RVR, A. tach ablation Sunday #2 underlying left bundle branch block and first-degree AV block #3 NSVT #4 myopathy, status post biopsy with results pending #5 small lung nodule #6 mildly decreased ejection fraction of 50% PLAN: Patient is to continue Eliquis prior to A. tach ablation Sunday; do not hold a.m. dose Continue with Cardizem drip for rate control Outpatient PET computed tomography scan with possible lung biopsy Outpatient cardiac MRI at the [facility] The patient has been seen and evaluated. Plan of care has been reviewed and agreed upon by Dr Pérez. Objective - Vital Signs Vital signs: Vital Signs Temp 97.7 F 01/02/21 08:00 Pulse 84 01/02/21 08:00 Resp 18 01/02/21 03:48 BP 111/77 01/02/21 08:00 Pulse Ox 98 01/02/21 03:48 Intake & Output 01/01/21 01/02/21 01/02/21 18:59 06:59 18:59 Intake Total 720 1598.833 288.667 Balance 720 1598.833 288.667 Weight 104.6 kg 104.2 kg Intake: Intake, IV Titration 398.833 48.667 Amount Diltiazem 125 mg In 100 Sodium Chloride 0.9% 100 ml @ 10 MG/HR 10 mls/hr IV .[id number] [facility] Rx#: [id number] Diltiazem 125 mg In 98.833 48.667 Sodium Chloride 0.9% 100 ml @ 5 MG/HR 5 mls/hr IV .Q24H [facility] Rx#:[id number] Lactated Ringers 1,000 ml 200 @ 20 mls/hr IV .Q24H [facility] Rx#:[id number] Oral 720 1200 240 Other: Voiding Method Toilet # Voids 2 2 - Labs CBC & Chem 7: 12/25/20 06:50 12/29/20 07:17
[2021-01-02] MEDS: LACTATED RINGERS 1,000 ML IV SCH (17:26)
--- NOTE | 2021-01-02 17:53 | P.PN ---
Progress Note - Text Progress Note Date: 01/02/21 Presenting complaint: Rapid heart rate History of presenting complaint: Patient is a pleasant 50-year-old gentleman was admitted for elective cardiac catheterization because of abnormal stress test cardiac ablation sugars showed clean coronaries. Patient was subsequently discharged patient went into atrial fibrillation with heart rate in 170s patient ended up coming back was started on Cardizem drip Flecanaide, which was subsequently discontinued and patient is presently on sotalol. Patient's daily is being monitored. Patient also has myopathy for which patient is being evaluated with a muscle biopsy. Patient had a computed tomography scan of the chest which showed a small 1.7-1.4 cm nodule for which pulmonology was consulted. Patient denied any chest discomfort at this time heart rate is presently controlled patient denied any fever chills nausea vomiting. Electro-physiology evaluated the patient. Patient had a normal ejection fraction. Patient used to be a smoker quit smoking years ago does have history of COPD. Placed on sotalol. Today-remains in atrial tachycardia . On Cardizem drip. Intermittently dizzy.. Review of systems: Was done for constitutional, cardiovascular, GI, pulmonary. relevant finding as above Active Medications Acetaminophen (Acetaminophen Tab 325 Mg Tab) 650 mg PO Q6HR PRN PRN Reason: Pain Last Admin: 01/01/21 05:51 Dose: 650 mg Documented by: Alprazolam (Alprazolam 0.25 Mg Tab) 0.25 mg PO Q6HR PRN PRN Reason: Mild Anxiety Stop: 01/23/21 06:21 Alprazolam (Alprazolam 0.5 Mg Tab) 0.5 mg PO Q6HR PRN PRN Reason: Moderate Anxiety Stop: 01/23/21 06:21 Apixaban (Apixaban 5 Mg Tab) 5 mg PO BID [facility] Last Admin: 01/02/21 08:33 Dose: 5 mg Documented by: Calcium Carbonate/Glycine (Calcium Carbonate Liquid 500 Mg/5 Ml Cup) 500 mg PO TID-W/MEALS PRN PRN Reason: reflux Famotidine (Famotidine 20 Mg Tab) 20 mg PO BID [facility] Last Admin: 01/02/21 08:33 Dose: 20 mg Documented by: Sodium Chloride (Saline 0.9%) 1,000 mls @ 20 mls/hr IV .Q24H [facility] Diltiazem HCl 125 mg/ Sodium (Chloride) 125 mls @ 5 mls/hr IV .Q24H [facility] Last Admin: 01/02/21 17:26 Dose: 5 mg/hr, 5 mls/hr Documented by: Lactated Ringer's (Lactated Ringers) 1,000 mls @ 20 mls/hr IV .Q24H [facility] Last Admin: 01/02/21 17:26 Dose: 20 mls/hr Documented by: Losartan Potassium (Losartan 25 Mg Tab) 25 mg PO HS [facility] Stop: 01/23/21 21:01 Last Admin: 01/01/21 21:46 Dose: 25 mg Documented by: Magnesium Oxide (Magnesium Oxide 400 Mg Tab) 400 mg PO DAILY [facility] Last Admin: 01/02/21 08:33 Dose: 400 mg Documented by: Nitroglycerin (Nitroglycerin Sl Tabs 0.4 Mg Tab) 0.4 mg SUBLINGUAL Q5M PRN PRN Reason: Chest Pain Stop: 01/23/21 06:21 Sodium Chloride (Sodium Chloride 0.65% Nasal [place] 44 Ml Btl) 2 spray NASAL QID PRN PRN Reason: Nasal Congestion Spironolactone (Spironolactone 25 Mg Tab) 25 mg PO DAILY [facility] Last Admin: 01/02/21 08:33 Dose: 25 mg Documented by: On examination: VITAL SIGNS: 97.7, 84, 18, 111/77, 96% room air GENERAL APPEARANCE: Sitting up comfortable, awake HEENT: Normal external appearance of nose and ear. Oral cavity normal EYES: Pupils equal. Conjunctiva normal. NECK: JVD not raised. Mass not palpable. RESPIRATORY: Respiratory effort normal. Lungs clear to auscultation. CARDIOVASCULAR: Heart sounds irregular, no edema. ABDOMEN: Soft. Liver and spleen not palpable. No tenderness. No mass palpable. PSYCHIATRY: Alert and oriented x3. Mood and affect normal. INVESTIGATIONS, reviewed in the clinical context: White count 6.2 hemoglobin 14.7 platelets 2:30 potassium 4.4 creatinine 0.8 TSH 2.5 Assessment: -Recurrent atrial tachycardia with RVR. Has not responded to sotalol.-Dis continued He'll be having an EP study. With Possibly ablation on Sunday. Remains on IV Cardizem drip. -Nonsustained ventricular tachycardia -Left bundle-branch block with IVCD and left anterior vascular block -Prolonged QT interval -Muscle disorder cause unknown-patient had a muscle biopsy and being followed by Dr. Mueller at [facility]. At this present time cause unknown. He is having wasting of muscles of the calf, generalized muscle weakness. Unable to stand on tip toes -Hepatic steatosis -Obesity BMI 33.4 -1.71.6 cm Central right middle lobe nodule-lung: Outpatient PET scan and being followed by Dr. Kwong Plan: FINA Alonzo. Plan this patient to proceed with EP study with possible ablation on Sunday. Follow Dr. Pérez.
[2021-01-02] MEDS: LOSARTAN 25 MG TAB PO SCH (21:13)
[2021-01-03 00:21] LABS: African American GFR (CKD) >90 (>60 ml/min/1.73 sqM); Anion Gap 10 mmol/L; Blood Urea Nitrogen 22 mg/dL (9-20); Calcium 9.9 mg/dL (8.4-10.2); Carbon Dioxide 26 mmol/L (22-30); Chloride 100 mmol/L (98-107); Glucose 102 mg/dL (74-99); Non-African American GFR(CKD) >90 (>60 ml/min/1.73 sqM); Potassium 4.4 mmol/L (3.5-5.1); Sodium 136 mmol/L (137-145)
[2021-01-03] MEDS: DILTIAZEM 125 MG in SODIUM CHLORIDE 0.9% 100 ML IV SCH (02:15)
[2021-01-03] MEDS: MAGNESIUM OXIDE 400 MG TAB PO SCH (05:17)
[2021-01-03] MEDS: SPIRONOLACTONE 25 MG TAB PO SCH (05:17)
[2021-01-03 07:38] LABS: African American GFR (CKD) >90 (>60 ml/min/1.73 sqM); Anion Gap 10 mmol/L; Blood Urea Nitrogen 19 mg/dL (9-20); Calcium 9.6 mg/dL (8.4-10.2); Carbon Dioxide 24 mmol/L (22-30); Chloride 102 mmol/L (98-107); Glucose 101 mg/dL (74-99); Non-African American GFR(CKD) >90 (>60 ml/min/1.73 sqM); Sodium 136 mmol/L (137-145)
[2021-01-03 08:10] LABS: Potassium 5.3 mmol/L (3.5-5.1)
[2021-01-03] MEDS: APIXABAN 5 MG TAB PO SCH ×2 (09:31→22:58)
[2021-01-03] MEDS: FAMOTIDINE 20 MG TAB PO SCH ×2 (09:31→20:55)
[2021-01-03] MEDS ORDERED: SODIUM CHLORIDE 0.9% 1,000 ML IV SCH (11:00)
[2021-01-03] MEDS ORDERED: LIDOCAINE 1% INJ 10MG/ML (20 ML MDV) ONE ×2 (13:00→13:46)
[2021-01-03] MEDS ORDERED: MIDAZOLAM 2 MG/2 ML VIAL ONE (13:05)
[2021-01-03] MEDS ORDERED: fentaNYL (PF) 50 MCG/ML 2 ML AMP ONE (13:05)
[2021-01-03] MEDS ORDERED: HYDROmorphone (PF) 1 MG/ML ONE (13:05)
[2021-01-03] MEDS ORDERED: PROPOFOL 10 MG/ML 20 ML VIAL IV ONE (13:05)
[2021-01-03] MEDS ORDERED: IV FLUID CONTINUATION 300 ML IV ONE (13:26)
[2021-01-03] MEDS ORDERED: LIDOCAINE 1% INJ 10MG/ML (20 ML MDV) SQ ONE ×3 (13:41→13:45)
[2021-01-03] MEDS ORDERED: HEPARIN SODIUM (1,000 UNIT/ML) 1,000 UNIT in SODIUM CHLORIDE 0.9% 1,000 ML IRRIGATION ONE (14:10)
[2021-01-03] MEDS ORDERED: SODIUM CHLORIDE 0.9% 1,000 ML IV ONE (16:34)
[2021-01-03] MEDS ORDERED: ACETAMINOPHEN TAB 325 MG TAB PO PRN (16:42)
[2021-01-03] MEDS ORDERED: ACETAMINOPHEN IV (For NPO) 1,000 MG in EMPTY BAG 1 BAG IVPB ONE (17:00)
[2021-01-03] MEDS: LACTATED RINGERS 1,000 ML IV SCH (19:34)
--- NOTE | 2021-01-03 20:51 | CE ---
CARDIAC ELECTROPHYSIOLOGY REPORT Nora Lema is a 50-year-old male patient who was admitted to the hospital with an abnormal stress test followed by coronary angiography which revealed normal coronary arteries. He has a bifascicular block, recurrent atrial tachycardia with RVR, underlying left bundle branch block pattern, and runs of nonsustained ventricular tachycardia. LV function was normal on echo, but the left ventriculogram suggested an ejection fraction of about 45%. He underwent a chest CT to look for evidence of cardiac sarcoidosis, and a lung nodule was noted. He is awaiting a PET scan of the lung. In addition, he has muscle weakness with myositis, but a clear-cut diagnosis is still awaited. He was brought in for an atrial tachycardia ablation. The patient was brought to the EP lab in a fasting state. Written informed consent was obtained prior to the procedure. The right and left groins were prepped and draped as per protocol and 1% lidocaine was used for local anesthesia. Venous sheaths were placed in the right and left femoral veins, and via these diagnostic mapping ablation catheters were placed in the high right atrium, His bundle area, coronary sinus and right ventricle. A PentaRay catheter was used and mapping and ablation catheters were used. The patient was in tachycardia at the start of the study; tachycardia at the left bundle branch block, QRS morphology with a cycle length of about 310 to 320 milliseconds. In addition, he had spontaneous runs of nonsustained ventricular tachycardia. These were long runs of ventricular tachycardia with a right bundle branch block-like morphology. The atrial tachycardia P-wave morphology was as follows. There was a W-shaped pattern in lead V1 and slightly upright P-waves in the inferior leads, upright M-shaped P-wave in lead I consistent with likely right atrial tachycardia close to its anterior aspect, possibly close to the tricuspid valve. Three-dimensional electroanatomic mapping was performed. Activation mapping was performed. Voltage mapping was performed. After a detailed activation voltage map the tachycardia was localized to the tricuspid anulus around 9-10 o'clock position in the SYRIAC view. The tricuspid anulus was enlarged. The tachycardia terminated with mechanical termination in the area of earliest activation twice. Using this option, the sinus map was performed and scarring was noted in the area of earliest activation. During tachycardia once again, RF ablation was applied. Good contact force was achieved and the tachycardia was terminated after progressive lengthening. The successful ablation was close to the tricuspid anulus, around 9-10 o'clock position in the right atrium. Following that, a detailed EP study was performed and the tachycardia was rendered noninducible. Prior to that, the tachycardia was very easily inducible simply with mechanical stimulation. In sinus rhythm, the GA interval was 181 milliseconds, QRS 142 milliseconds, QT 330 milliseconds, AH 61 milliseconds and HV interval 37 milliseconds. AV node Wenckebach block 320 milliseconds. Sinus node recovery time at 600 milliseconds was 890 milliseconds. Burst stimulation was performed. Atrial extrastimulation was performed from the high right atrium and from the coronary sinus. Tachycardia was rendered noninducible. Thereafter, Isuprel was started wide open and then at 2 mcg. Atrial fibrillation was induced with Isuprel without even atrial pacing. Once Isuprel was stopped, atrial fibrillation resolved within a minute. At this point, all catheters were removed, hemostasis was assured, and the patient was transferred back to telemetry. RESULT: 1. Diagnostic EP study revealing right atrial tachycardia, tricuspid anulus, 9-10 o'clock position in the SYRIAC view. 2. Successful ablation of the atrial tachycardia with termination. 3. Tachycardia rendered noninducible. 4. Very easily inducible atrial fibrillation with Isuprel only. 5. Long runs of nonsustained ventricular tachycardia from the left ventricle. 6. Left bundle branch block pattern at baseline. AH interval 61 milliseconds, HV interval 37 milliseconds. The patient tolerated the procedure well without any acute complications. PLAN: 1. Cardiac MRI to evaluate for sarcoidosis. 2. PET scan of the lung to evaluate the lung nodule. The patient does not have mediastinal hilar lymphadenopathy on CT scan of the chest. 3. Metoprolol 50 mg p.o. daily, long-acting. 4. Continue Eliquis 5 mg twice daily. MMODL / IJN: [id number] /
[2021-01-03] MEDS: LOSARTAN 25 MG TAB PO SCH (22:58)
[2021-01-04] MEDS ORDERED: METOPROLOL SUCCINATE (ER) 50 MG TAB.ER.24H PO SCH (07:00)
[2021-01-04] MEDS: APIXABAN 5 MG TAB PO SCH (10:04)
[2021-01-04] MEDS: FAMOTIDINE 20 MG TAB PO SCH (10:05)
[2021-01-04] MEDS: MAGNESIUM OXIDE 400 MG TAB PO SCH (10:05)
[2021-01-04] MEDS: SPIRONOLACTONE 25 MG TAB PO SCH (10:06)
[2021-01-04 11:42] VITALS: BP 129/88; PULSE 85; RESP 18; TEMP 97.6
[2021-01-04] MEDS ORDERED: SODIUM POLYSTYRENE SULFONATE 15 GM/60 ML BOTTLE PO STA (13:23)
--- NOTE | 2021-01-04 15:06 | P.PN ---
Subjective Progress Note Date: 01/04/21 HISTORY OF PRESENT ILLNESS: Patient examined this morning at the bedside. He underwent diagnostic EP study and successful ablation of atrial tachycardia with Dr. Pérez. Patient remains in sinus rhythm today. He denies chest pain or pressure. Denies shortness of breath. Vital signs are stable. PHYSICAL EXAM: VITAL SIGNS: Reviewed. GENERAL: Well-developed in no acute distress. NECK: Supple. No JVD or thyromegaly LUNGS: Respirations even and unlabored. Lungs essentially clear to auscultation bilaterally. HEART: Regular rate and rhythm. S1 and S2 heard. EXTREMITIES: Normal range of motion. No clubbing or cyanosis. Peripheral pulses intact. No lower extremity edema ASSESSMENT: Symptomatic atrial tachycardia with RVR, status post ablation PLAN: Patient may be discharged home today. He is to continue on Toprol-XL 50 mg daily and Eliquis 5 mg twice a day. Patient will require cardiac MRI to evaluate for sarcoidosis. This can be set up on an outpatient basis. Patient is stable for discharge home today. Nurse practitioner note has been reviewed by physician. Signing provider agrees with the documented findings, assessment, and plan of care. Objective - Vital Signs Vital signs: Vital Signs Temp 97.6 F 01/04/21 11:40 Pulse 85 01/04/21 11:40 Resp 18 01/04/21 11:40 BP 129/88 01/04/21 11:40 Pulse Ox 96 01/04/21 11:40 Intake & Output 01/03/21 01/04/21 01/04/21 18:59 06:59 18:59 Intake Total 889 736 Balance 889 736 Weight 104.5 kg Intake: IV 649 Oral 240 736 Other: Voiding Method Toilet Toilet Toilet # Voids 2 2 2 - Labs CBC & Chem 7: 12/25/20 06:50 01/03/21 06:29
--- NOTE | 2021-01-04 23:33 | P.DS ---
Providers Date of admission: 12/27/20 14:21 Expected date of discharge: 01/04/21 Attending physician: Bib Louise Consults: 12/26/20 10:12 Consult Physician Routine Consulting Provider: Nikhil Pérez Consult Reason/Comments: atrial arrythmia Do you want consulting provider notified?: Yes, Notify in am 12/28/20 08:23 Consult Physician Routine Consulting Provider: Aram Kwong Consult Reason/Comments: nodule on ct Do you want consulting provider notified?: Yes 12/28/20 08:32 Consult Physician Routine Consulting Provider: Siomara Lechuga Consult Reason/Comments: atach Do you want consulting provider notified?: Already Contacted Primary care physician: [facility] Course: Presenting complaint: Rapid heart rate History of presenting complaint: Patient is a pleasant 50-year-old gentleman was admitted for elective cardiac catheterization because of abnormal stress test cardiac ablation sugars showed clean coronaries. Patient was subsequently discharged patient went into atrial fibrillation with heart rate in 170s patient ended up coming back was started on Cardizem drip Flecanaide, which was subsequently discontinued and patient is pre sently on sotalol. Patient's daily is being monitored. Patient also has myopathy for which patient is being evaluated with a muscle biopsy. Patient had a computed tomography scan of the chest which showed a small 1.7-1.4 cm nodule for which pulmonology was consulted. Patient denied any chest discomfort at this time heart rate is presently controlled patient denied any fever chills nausea vomiting. Electro-physiology evaluated the patient. Patient had a normal ejection fraction. Patient used to be a smoker quit smoking years ago does have history of COPD. Placed on sotalol.-Then discontinued January 03: Underwent EP study. Found to have right atrial tachycardia. Successful ablation. Noninducible. Very easily inducible atrial fibrillation. Long runs of nonsustained ventricular Tachycardia from left ventricle. With left bundle branch block pattern. Dr. Pérez will be following up with the cardiac MRI to evaluate for sore ketosis. Also to continue on metoprolol and eliquis. Today-stable. Cleared by Dr. Pérez. Spoke to the patient and at the bedside. Questions answered. He'll have a PET scan as an outpatient being courted by Dr. Kwong.. He'll also follow-up with his physician at [facility]. For his muscle disorder. Consultation: Dr. Nikhil Pérez from electrophysiology Dr. Kwong from pulmonary On examination: VITAL SIGNS: 97.6, 85, 18, 129/88, 96% room air GENERAL APPEARANCE: Sitting up comfortable, awake HEENT: Normal external appearance of nose and ear. Oral cavity normal EYES: Pupils equal. Conjunctiva normal. NECK: JVD not raised. Mass not palpable. RESPIRATORY: Respiratory effort normal. Lungs clear to auscultation. CARDIOVASCULAR: Heart sounds irregular, no edema. ABDOMEN: Soft. Liver and spleen not palpable. No tenderness. No mass palpable. PSYCHIATRY: Alert and oriented x3. Mood and affect normal. INVESTIGATIONS, reviewed in the clinical context: White count 6.2 hemoglobin 14.7 platelets 2:30 potassium 4.4 creatinine 0.8 TSH 2.5 Assessment: -Recurrent atrial tachycardia with RVR. Has not responded to sotalol.- Discontinued was an IV Cardizem drip. EP study: Found to have right atrial tachycardia. Successful ablation. -Nonsustained ventricular tachycardia, from left ventricle. -Left bundle-branch block with IVCD and left anterior vascular block -Prolonged QT interval -Muscle disorder cause unknown-patient had a muscle biopsy and being followed by Dr. Mueller at [facility]. At this present time cause unknown. He is having wasting of muscles of the calf, generalized muscle weakness. Unable to stand on tip toes -Hepatic steatosis -Obesity BMI 33.4 -1.71.6 cm Central right middle lobe nodule-lung: Outpatient PET scan and being followed by Dr. Kwong Disposition: Home Patient Condition at Discharge: Stable Plan - Discharge Summary Discharge Rx Participant: Yes New Discharge Prescriptions: New Losartan [Cozaar] 50 mg PO HS #30 tab Apixaban [Eliquis] 5 mg PO BID #60 tab Famotidine [Pepcid] 20 mg PO BID #60 tab Metoprolol Succinate [Toprol XL] 50 mg PO DAILY #90 tab Continue [place]-3 Fatty Acids/Fish Oil [Fish Oil 1,000 mg Softgel] 1,400 mg PO HS Multivitamins, Thera [Multivitamin (formulary)] 2 tab PO DAILY Cyanocobalamin [Vitamin B-12 Injection] 1,000 mcg SQ DIRECTED Testosterone Injection 200 mg IM DIRECTED Discontinued Losartan Potassium [Cozaar] 100 mg PO HS Metoprolol Tartrate [Lopressor] 12.5 mg PO BID Aspirin 81 mg PO DAILY Discharge Medication List Multivitamins, Thera [Multivitamin (formulary)] 2 tab PO DAILY 08/28/18 [History] [place]-3 Fatty Acids/Fish Oil [Fish Oil 1,000 mg Softgel] 1,400 mg PO HS 08/28/18 [History] Cyanocobalamin [Vitamin B-12 Injection] 1,000 mcg SQ DIRECTED 12/23/20 [History] Testosterone Injection 200 mg IM DIRECTED 12/23/20 [History] Apixaban [Eliquis] 5 mg PO BID #60 tab 12/25/20 [Rx] Losartan [Cozaar] 50 mg PO HS #30 tab 12/25/20 [Rx] Famotidine [Pepcid] 20 mg PO BID #60 tab 01/04/21 [Rx] Metoprolol Succinate [Toprol XL] 50 mg PO DAILY #90 tab 01/04/21 [Rx] Follow up Appointment(s)/Referral(s): Nikhil Pérez MD [STAFF PHYSICIAN] - 01/18/21 1:30 pm Aram Kwong DO [Doctor of Osteopathic Medicine] - 01/31/21 1:45 pm Patient Instructions/Handouts: *Surgery [facility] - After Heart Catheterization - Senior Engineering Manager Instructions, Apixaban (By mouth), A-fib (Atrial Fibrillation) (ED), Cardiac Ablation (DC) Activity/Diet/Wound Care/Special Instructions: bmp - 2 days Patient needs outpatient cardiac MRI. Can be set up outpatient at follow up appointment at cardiology office Discharge Disposition: HOME SELF-CARE
== END 2021-01-04 16:49 | disposition home or self-care (01) | DRG 274 ==
LOC: CATHCVL 10:25 → 3SCARD 11:46 → CATHCVL 12-25 14:52 → OBSVTOIN 12-27 14:21
PROVIDERS: ADMIT Hospitalist; ATTEND Hospitalist
PROC: 4A023N7 Measurement of Cardiac Sampling and Pressure, Left Heart, Percutaneous Approach (ICD-10-PCS; 2020-12-24)
PROC: B2111ZZ Fluoroscopy of Multiple Coronary Arteries using Low Osmolar Contrast (ICD-10-PCS; 2020-12-24)
PROC: 4A0234Z Measurement of Cardiac Electrical Activity, Percutaneous Approach (ICD-10-PCS; 2021-01-03)
PROC: 02583ZZ Destruction of Conduction Mechanism, Percutaneous Approach (ICD-10-PCS; principal; 2021-01-03 11:00)
PROC: 02K83ZZ Map Conduction Mechanism, Percutaneous Approach (ICD-10-PCS; 2021-01-03 11:00)
PROC: 4A023FZ Measurement of Cardiac Rhythm, Percutaneous Approach (ICD-10-PCS; 2021-01-03 11:00)
DX: I47.1 Supraventricular tachycardia (principal); C34.2 Malignant neoplasm of middle lobe, bronchus or lung; I47.2 Ventricular tachycardia; G72.9 Myopathy, unspecified; K76.0 Fatty (change of) liver, not elsewhere classified; I48.0 Paroxysmal atrial fibrillation; J44.9 Chronic obstructive pulmonary disease, unspecified; M35.3 Polymyalgia rheumatica; I10 Essential (primary) hypertension; M19.90 Unspecified osteoarthritis, unspecified site; R91.1 Solitary pulmonary nodule; I45.2 Bifascicular block; E66.9 Obesity, unspecified; F41.9 Anxiety disorder, unspecified; I44.0 Atrioventricular block, first degree; Z68.33 Body mass index [BMI] 33.0-33.9, adult; Z71.3 Dietary counseling and surveillance; Z87.891 Personal history of nicotine dependence; Z98.890 Other specified postprocedural states; Z79.899 Other long term (current) drug therapy; Z80.42 Family history of malignant neoplasm of prostate; Z80.0 Family history of malignant neoplasm of digestive organs; Z80.8 Family history of malignant neoplasm of other organs or systems
CPT/HCPCS: 71250; 80048; 82164; 83735; 84443; 85025; 85652; 86140; 93458; 93613; 93623; 93653

== ENCOUNTER 2022-02-12 01:47 | Inpatient (IN) | payer BC, OTHER ==
--- NOTE | 2022-02-12 02:17 | ED ---
Arrhythmia/Palpitations HPI - General Chief Complaint: Arrhythmia/Palpitations Stated Complaint: Palpitations, SOB Time Seen by Provider: 02/12/22 02:16 Source: patient Mode of arrival: wheelchair - Related Data Home Medications Medication Instructions Recorded Confirmed Multivitamins, Thera [Multivitamin 2 tab PO DAILY 08/28/18 12/24/20 (formulary)] [place]-3 Fatty Acids/Fish Oil [Fish 1,400 mg PO HS 08/28/18 12/24/20 Oil 1,000 mg Softgel] Cyanocobalamin [Vitamin B-12 1,000 mcg SQ DIRECTED 12/23/20 12/23/20 Injection] Testosterone Injection 200 mg IM DIRECTED 12/23/20 Previous Rx's Medication Instructions Recorded Apixaban [Eliquis] 5 mg PO BID #60 tab 12/25/20 Losartan [Cozaar] 50 mg PO HS #30 tab 12/25/20 Famotidine [Pepcid] 20 mg PO BID #60 tab 01/04/21 Metoprolol Succinate [Toprol XL] 50 mg PO DAILY #90 tab 01/04/21 Allergies Allergy/AdvReac Type Severity Reaction Status Date / Time No Known Allergies Allergy Verified 02/12/22 02:02 Review of Systems ROS Statement: Those systems with pertinent positive or pertinent negative responses have been documented in the HPI. ROS Other: All systems not noted in ROS Statement are negative. Past Medical History Past Medical History: Atrial Fibrillation, Hypertension, Osteoarthritis (OA) Additional Past Medical History / Comment(s): FATTY LIVER., SINUS PROBLEMS, STATES BEING TESTED FOR AUTO IMMUNE DISEASE AT [facility]ES SYMPTOMS OF LOSS OF STRENGTH, FEELS TIRED ELEVATED CK AND LIVER ENZYMES, STATES SHOT FOR HEPATITIS AT 10 YRS OLD ? EXPOSURE., SEE CARDIOLOGY H & P., STATES SOB. History of Any Multi-Drug Resistant Organisms: None Reported Past Surgical History: Orthopedic Surgery Additional Past Surgical History / Comment(s): RIGHT CARPAL TUNNEL RELEASE, COLONOSCOPY. WISDOM TEETH., MUSCLE BX. Past Anesthesia/Blood Transfusion Reactions: No Reported Reaction Past Psychological History: No Psychological Hx Reported Smoking Status: Former smoker Past Alcohol Use History: Rare Past Drug Use History: None Reported - Past Family History Father Family Medical History: Cancer Additional Family Medical History / Comment(s): PROSTATE CANCER Mother Family Medical History: Cancer Additional Family Medical History / Comment(s): COLON CANCER X2 Brother(s) Family Medical History: Cancer Additional Family Medical History / Comment(s): SKIN General Exam General appearance: alert, in no apparent distress Head exam: Present: atraumatic, normocephalic, normal inspection Eye exam: Present: normal appearance, PERRL, EOMI. Absent: scleral icterus, conjunctival injection, periorbital swelling ENT exam: Present: normal exam, mucous membranes moist Neck exam: Present: normal inspection. Absent: tenderness, meningismus, lymphadenopathy Respiratory exam: Present: normal lung sounds bilaterally. Absent: respiratory distress, wheezes, rales, rhonchi, stridor Cardiovascular Exam: Present: regular rate, normal rhythm, normal heart sounds. Absent: systolic murmur, diastolic murmur, rubs, gallop, clicks GI/Abdominal exam: Present: soft, normal bowel sounds. Absent: distended, tenderness, guarding, rebound, rigid Rectal exam: Present: deferred exam: Present: normal inspection Extremities exam: Present: normal inspection, full ROM, normal capillary refill. Absent: tenderness, pedal edema, joint swelling, calf tenderness Back exam: Present: normal inspection Neurological exam: Present: alert, oriented X3, CN II-XII intact Psychiatric exam: Present: normal affect, normal mood Skin exam: Present: warm, dry, intact, normal color. 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 ] Respiratory 19 18 Rate Blood Pressure 134/94 126/94 O2 Sat by Pulse 99 95 Oximetry - Reevaluation(s) Reevaluation #1: 02/12/22 04:59 Medical record is reviewed Reevaluation #2: 02/12/22 04:59 Patient symptoms are significant improved rate control Reevaluation #3: 02/12/22 04:59 Patient informed results and questions answered - Consultations Consultation #1: Spoke with sound who agree to admit this patient EKG Findings - EKG Comments: EKG Findings:: EKG shows atrial tachycardia 143 QRS 160 QTC 402 Medical Decision Making - Medical Decision Making 51 male to the emergency department for evaluation. Patientm presents today and 3 for fibrillation with RVR. Chest pain. Patient has good rate control currently can be admitted for cardiology to evaluate treat - Lab Data Result diagrams: 02/12/22 02:28 02/12/22 02:28 Lab Results 02/12/22 02/12/22 02/12/22 Range/Units 02:28 02:28 02:28 WBC 5.0 (3.8-10.6) k/uL RBC 4.22 L (4.30-5.90) m/uL Hgb 13.0 (13.0-17.5) gm/dL Hct 39.3 (39.0-53.0) % MCV 93.2 (80.0-100.0) fL MCH 30.9 (25.0-35.0) pg MCHC 33.2 (31.0-37.0) g/dL RDW 13.2 (11.5-15.5) % Plt Count 233 (150-450) k/uL MPV 7.2 Neutrophils % 52 % Lymphocytes % 35 % Monocytes % 5 % Eosinophils % 6 % Basophils % 1 % Neutrophils # 2.6 (1.3-7.7) k/uL Lymphocytes # 1.8 (1.0-4.8) k/uL Monocytes # 0.2 (0-1.0) k/uL Eosinophils # 0.3 (0-0.7) k/uL Basophils # 0.0 (0-0.2) k/uL PT 11.1 (9.0-12.0) sec INR 1.0 (<1.2) APTT 25.1 (22.0-30.0) sec Sodium 138 (137-145) mmol/L Potassium 3.9 (3.5-5.1) mmol/L Chloride 106 (98-107) mmol/L Carbon Dioxide 22 (22-30) mmol/L Anion Gap 10 mmol/L BUN 16 (9-20) mg/dL Creatinine 0.83 (0.66-1.25) mg/dL Est GFR (CKD-EPI)AfAm >90 (>60 ml/min/1.73 sqM) Est GFR (CKD-EPI)NonAf >90 (>60 ml/min/1.73 sqM) Glucose 116 H (74-99) mg/dL Calcium 9.3 (8.4-10.2) mg/dL Phosphorus 3.9 (2.5-4.5) mg/dL Magnesium 2.0 (1.6-2.3) mg/dL Total Bilirubin 0.8 (0.2-1.3) mg/dL AST 50 (17-59) U/L ALT 61 H (4-49) U/L Alkaline Phosphatase 44 (38-126) U/L Troponin I (0.000-0.034) ng/mL NT-Pro-B Natriuret Pep pg/mL Total Protein 6.7 (6.3-8.2) g/dL Albumin 4.0 (3.5-5.0) g/dL 02/12/22 02/12/22 Range/Units 02:28 02:28 WBC (3.8-10.6) k/uL RBC (4.30-5.90) m/uL Hgb (13.0-17.5) gm/dL Hct (39.0-53.0) % MCV (80.0-100.0) fL MCH (25.0-35.0) pg MCHC (31.0-37.0) g/dL RDW (11.5-15.5) % Plt Count (150-450) k/uL MPV Neutrophils % % Lymphocytes % % Monocytes % % Eosinophils % % Basophils % % Neutrophils # (1.3-7.7) k/uL Lymphocytes # (1.0-4.8) k/uL Monocytes # (0-1.0) k/uL Eosinophils # (0-0.7) k/uL Basophils # (0-0.2) k/uL PT (9.0-12.0) sec INR (<1.2) APTT (22.0-30.0) sec Sodium (137-145) mmol/L Potassium (3.5-5.1) mmol/L Chloride (98-107) mmol/L Carbon Dioxide (22-30) mmol/L Anion Gap mmol/L BUN (9-20) mg/dL Creatinine (0.66-1.25) mg/dL Est GFR (CKD-EPI)AfAm (>60 ml/min/1.73 sqM) Est GFR (CKD-EPI)NonAf (>60 ml/min/1.73 sqM) Glucose (74-99) mg/dL Calcium (8.4-10.2) mg/dL Phosphorus (2.5-4.5) mg/dL Magnesium (1.6-2.3) mg/dL Total Bilirubin (0.2-1.3) mg/dL AST (17-59) U/L ALT (4-49) U/L Alkaline Phosphatase (38-126) U/L Troponin I 0.012 (0.000-0.034) ng/mL NT-Pro-B Natriuret Pep 579 pg/mL Total Protein (6.3-8.2) g/dL Albumin (3.5-5.0) g/dL Critical Care Time Critical Care Time: Yes Total Critical Care Time: 31 Disposition Clinical Impression: Atrial fibrillation, Atrial flutter, Tachycardia, Palpitations, Atrial fibrillation with rapid ventricular response Disposition: ADMITTED IP TO THIS HOSP Condition: Good Is patient prescribed a controlled substance at d/c from ED?: No Referrals: Jesus Patterson MD [Primary Care Provider] - 1-2 days
[2022-02-12 02:45] LABS: Basophils % (A) 1 %; Eosinophils # (A) 0.3 k/uL (0-0.7); Eosinophils % (A) 6 %; HCT 39.3 % (39.0-53.0); Lymphocytes # (A) 1.8 k/uL (1.0-4.8); Lymphocytes % (A) 35 %; MCH 30.9 pg (25.0-35.0); MCHC 33.2 g/dL (31.0-37.0); MCV 93.2 fL (80.0-100.0); Mean Platelet Volume 7.2; Monocytes # (A) 0.2 k/uL (0-1.0); Monocytes % (A) 5 %; Neutrophils # (A) 2.6 k/uL (1.3-7.7); Neutrophils % (A) 52 %; Platelet Count 233 k/uL (150-450); RBC 4.22 m/uL (4.30-5.90); RDW 13.2 % (11.5-15.5)
[2022-02-12 02:54] LABS: ALT 61 U/L (4-49); AST 50 U/L (17-59); African American GFR (CKD) >90 (>60 ml/min/1.73 sqM); Alkaline Phosphatase 44 U/L (38-126); Anion Gap 10 mmol/L; Blood Urea Nitrogen 16 mg/dL (9-20); Calcium 9.3 mg/dL (8.4-10.2); Carbon Dioxide 22 mmol/L (22-30); Chloride 106 mmol/L (98-107); Glucose 116 mg/dL (74-99); Non-African American GFR(CKD) >90 (>60 ml/min/1.73 sqM); Partial Thromboplastin Time 25.1 sec (22.0-30.0); Phosphorus 3.9 mg/dL (2.5-4.5); Potassium 3.9 mmol/L (3.5-5.1); Prothrombin Time 11.1 sec (9.0-12.0); Sodium 138 mmol/L (137-145); Total Bilirubin 0.8 mg/dL (0.2-1.3); Total Protein 6.7 g/dL (6.3-8.2)
--- NOTE | 2022-02-12 02:54 | XR ---
EXAMINATION TYPE: XR chest 2V DATE OF EXAM: 02/12/2022 COMPARISON: 07/11/2013 HISTORY: Weakness TECHNIQUE: 2 views FINDINGS: There is some pulmonary interstitial edema. Heart size is top normal. There are chest leads . There is slight blunting of the costophrenic angles. IMPRESSION: There is pulmonary interstitial edema and small pleural effusions could relate to acute h eart failure. Abnormalities are new compared to old exam.
[2022-02-12] MEDS ORDERED: DILTIAZEM DRIP BOLUS FROM BAG 1 MG SOLN IV ONE (03:04)
[2022-02-12] MEDS: DILTIAZEM 125 MG in SODIUM CHLORIDE 0.9% 100 ML IV SCH ×2 (03:17→18:59)
[2022-02-12] MEDS ORDERED: LORazepam 2 MG/ML INJ IV PRN (04:55)
[2022-02-12] MEDS ORDERED: NALOXONE 0.4 MG/ML 1 ML VIAL IV PRN (04:55)
[2022-02-12] MEDS ORDERED: ONDANSETRON 4 MG/2 ML VIAL IVP PRN (04:55)
[2022-02-12] MEDS ORDERED: METOPROLOL TARTRATE 5 MG/5 ML VIAL IVP STA (04:55)
--- NOTE | 2022-02-12 06:24 | P.HPIM ---
History of Present Illness H&P Date: 02/12/22 Chief Complaint: palpitations 51 year old male with afib s/p ablation on eliquis, Hypertension patient comes in due to > 1 week history of palpitations, he has been putting it off, until his insurance from new job kicks in beginning of february , but It was getting worse and he decided to come in for evaluation , he has a monitoring device ,and has been following up with [place] docs, who has been helping him adjust his meds, he takes metoprolol for afib and eliquis. they went up on his metoprolol to 75 mg daily . he denies any SOB or chest pain , but would experience that for short period occasionally . however, he was getting extremly tired and unable to do any thing today, he also noticed increase edema in his legs. he claims that he is compliant with his meds, no recent travel or hospital stay he was told in the past that he could have sarcoidosis of the heart , but nothing confirmed yet. in the ED, he was found to be in afib with RVR, however, on the monitor he was also having short runs of non sustained Vtach. blood work overall unremarkable , trops negative, CXR showed some degree of pul edema Review of Systems Pertinent positives as noted in HPI. All other systems were reviewed and are negative Past Medical History Past Medical History: Atrial Fibrillation, Hypertension, Osteoarthritis (OA) Additional Past Medical History / Comment(s): FATTY LIVER., SINUS PROBLEMS, STATES BEING TESTED FOR AUTO IMMUNE DISEASE AT [facility]-STATES SYMPTOMS OF LOSS OF STRENGTH, FEELS TIRED ELEVATED CK AND LIVER ENZYMES, STATES SHOT FOR HEPATITIS AT 10 YRS OLD ? EXPOSURE., SEE CARDIOLOGY H & P., STATES SOB. History of Any Multi-Drug Resistant Organisms: None Reported Past Surgical History: Orthopedic Surgery Additional Past Surgical History / Comment(s): RIGHT CARPAL TUNNEL RELEASE, C OLONOSCOPY. WISDOM TEETH., MUSCLE BX. Past Anesthesia/Blood Transfusion Reactions: No Reported Reaction Past Psychological History: No Psychological Hx Reported Smoking Status: Former smoker Past Alcohol Use History: Rare Past Drug Use History: None Reported - Past Family History Father Family Medical History: Cancer Additional Family Medical History / Comment(s): PROSTATE CANCER Mother Family Medical History: Cancer Additional Family Medical History / Comment(s): COLON CANCER X2 Brother(s) Family Medical History: Cancer Additional Family Medical History / Comment(s): SKIN Medications and Allergies Home Medications Medication Instructions Recorded Confirmed Type Multivitamins, Thera [Multivitamin 2 tab PO DAILY 08/28/18 12/24/20 History (formulary)] [place]-3 Fatty Acids/Fish Oil [Fish 1,400 mg PO HS 08/28/18 12/24/20 History Oil 1,000 mg Softgel] Cyanocobalamin [Vitamin B-12 1,000 mcg SQ DIRECTED 12/23/20 12/23/20 History Injection] Testosterone Injection 200 mg IM DIRECTED 12/23/20 History Apixaban [Eliquis] 5 mg PO BID #60 tab 12/25/20 Rx Losartan [Cozaar] 50 mg PO HS #30 tab 12/25/20 Rx Famotidine [Pepcid] 20 mg PO BID #60 tab 01/04/21 Rx Metoprolol Succinate [Toprol XL] 50 mg PO DAILY #90 tab 01/04/21 Rx Allergies Allergy/AdvReac Type Severity Reaction Status Date / Time No Known Allergies Allergy Verified 02/12/22 02:02 Physical Exam Vitals: Vital Signs Temp Pulse Pulse Resp BP Pulse Ox 02/12/22 06:01 71 18 126/82 95 02/12/22 05:00 71 18 109/73 95 02/12/22 04:00 98 18 113/80 95 02/12/22 03:19 141 H 18 126/94 95 02/12/22 02:17 141 H 02/12/22 01:58 97.7 F 143 H 19 134/94 99 Intake and Output 02/11/22 02/11/22 02/12/22 14:59 22:59 06:59 Other: Weight 122.47 kg Constitutional: No acute distress, conversant, pleasant Eyes: Anicteric sclerae, moist conjunctiva, Pupils equal round reactive to light ENMT: NC/AT Oropharynx clear, no erythema, or exudates Neck: Supple, FROM, no masses, or JVD No carotid bruits No thyromegaly Lungs: Clear to auscultation Clear to percussion Normal respiratory effort, no accessory muscle use Cardiovascular: Heart irregular in rate and rhythm, No murmurs, gallops, or rubs trace peripheral edema bilaterally Abdominal: Soft Nontender, no guarding, rebound or rigidity Abdomen moving with respiration Normoactive bowel sounds No hepatomegaly, No splenomegaly No palpable mass No abdominal wall hernia noted Skin: Normal temperature, tone, texture, turgor No induration No subcutaneous nodules No rash, lesions No ulcers Extremities: No digital cyanosis No clubbing Pedal pulses intact and symmetrical Radial pulses intact and symmetrical No calf tenderness Psychiatric: Alert and oriented to person, place and time Appropriate affect fair judgement Neuro Muscles Strength 5/5 in all 4 extremities Sensation to light touch grossly present throughout Cranial nerves II-XII grossly intact No focal sensory deficits Lymphatics: no palpable cervical or supraclavicular , or inguinal lymph nodes Results CBC & Chem 7: 02/12/22 02:28 03 02:28 Labs: Abnormal Lab Results - Last 24 Hours (Table) 02/12/22 02/12/22 Range/Units 02:28 02:28 RBC 4.22 L (4.30-5.90) m/uL Glucose 116 H (74-99) mg/dL ALT 61 H (4-49) U/L Assessment and Plan Assessment: afib with RVR , h/o ablation and currently on eliquis surveillance system monitor trend trops echocardiogram cardiology consult cardizem drip continue metoprolol , and eliquis chronic conditions hypertension continue losartan DVT PPX on eliquis for afib anticipated length of stay > 2 midnights full code
[2022-02-12] MEDS: FAMOTIDINE 20 MG TAB PO SCH ×2 (08:31→21:30)
[2022-02-12] MEDS: PANTOPRAZOLE 40 MG/10 ML VIAL IV SCH (08:32)
[2022-02-12] MEDS: APIXABAN 5 MG TAB PO SCH ×2 (08:39→21:29)
[2022-02-12] MEDS ORDERED: METOPROLOL SUCCINATE (ER) 50 MG TAB.ER.24H PO SCH (09:00)
[2022-02-12] MEDS ORDERED: METOPROLOL SUCCINATE (ER) 25 MG TAB.ER.24H PO SCH (09:00)
[2022-02-12] MEDS ORDERED: DEXTROSE 5% IN WATER 100 ML with AMIODARONE 150 MG IV ONE (12:56)
[2022-02-12] MEDS ORDERED: AMIODARONE 360 MG in DEXTROSE 5% IN WATER 200 ML IV ONE ×2 (12:56)
--- NOTE | 2022-02-12 13:49 | P.PN ---
Subjective Progress Note Date: 02/12/22 (delayed charting seen at 0930) Principal diagnosis: palpitations Patient is a 51-year-old male with a history of A. fib status post ablation on [facility], hypertension, and osteoarthritis who presented with complaints of palpitations. He had been following [facility] was scheduled to undergo further evaluation however he lost his insurance which will be dictated on February 24. He did follow with Dr. Pérez in the past. His last ablation was approximately one year ago, however Dr. Pérez has referred him to [facility] for evaluation of possible sarcoidosis. He states that his pulse rate was in the 40s to 50s but then over the last week has been uncontrolled. He did call his [facility] doctor who recommended outpatient EKG which were performed on Sunday however he has not had a chance to review it at this time. He decided to present to the ER because his palpitations are becoming more frequent and he felt his heart rate up. He reports that his last echocardiogram was approximately one year ago and showed an ejection fraction of 50%. He has no history of congestive heart failure in the past. Patient seen and examined at bedside. He reports he continues to feel palpit ations. He states that sometimes he startles himself awake from sleep and feel short of breath. His has been thing he needs a sleep apnea evaluation. General: non toxic, no distress, appears at stated age Derm: warm, dry Head: atraumatic, normocephalic, symmetric Eyes: EOMI, no lid lag, anicteric sclera Mouth: no lip lesion, mucus membranes moist Cardiovascular: S1S2 irreg, no murmur, positive posterior tibial pulse bilateral, Lungs: CTA bilateral, no rhonchi, no rales , no accessory muscle use Abdominal: soft, nontender to palpation, no guarding, no appreciable organomegaly Ext: no gross muscle atrophy, 2+edema, no contractures Neuro: CN II-XI grossly intact, no focal neuro deficits Psych: Alert, oriented, appropriate affect Assessment/Plan: A fib with RVR s/p ablation - follows with [facility] - cardizem add amio gtt - echo in AM - tele - await cardio recs - on oral metoprolol HTN - follow BP - continue with cozaar and Metoprolol Fatty liver disease - outpatient follow-up Myositis - being evaluated by [facility] DVT prophylaxis: Cheri Discussed with: patient, nursing Anticipated discharge: in AM Anticipated discharge place: home A total of 35 minutes was spent on the care of this complex patient more than 50% of the time was spent in counseling and care coordination. Objective - Vital Signs Vital signs: Vital Signs Temp 97.3 F L 02/12/22 11:48 Pulse 71 02/12/22 11:48 Resp 18 02/12/22 11:48 BP 108/77 02/12/22 11:48 Pulse Ox 97 02/12/22 11:48 Intake & Output 02/11/22 02/12/22 02/12/22 18:59 06:59 18:59 Weight 122.47 kg Other: Voiding Method Toilet Urinal # Voids 1 - Labs CBC & Chem 7: 02/12/22 02:28 02/12/22 02:28 Labs: Abnormal Lab Results - Last 24 Hours (Table) 02/12/22 02/12/22 02/12/22 Range/Units 02:28 02:28 07:52 RBC 4.22 L (4.30-5.90) m/uL Glucose 116 H (74-99) mg/dL ALT 61 H (4-49) U/L Creatine Kinase 467 H (55-170) U/L
--- NOTE | 2022-02-12 15:02 | P.CRDCN ---
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 He states that he had been doing fairly well until a week ago or so when he started 2 note lower extremity edema and orthopnea and increased dyspnea with exertion. He denies any actual chest pain or pressure. Denies any actual palpitations or heart racing sensation in his main symptom is shortness breath. On presentation he was found to be in atrial flutter with heart rate 140 bpm with left bundle branch block. 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 Denies any recent echo within the last year. He states that since his ablation in December he has not had many issues with palpitations however cannot really even feel when his heart is racing at 140 bpm. EKG on presentation showed atrial flutter versus an atrial tachycardia with rate of 143 bpm with left bundle branch morphology. Troponins noted to be normal 3. ProBNP 579. REVIEW OF SYSTEMS At the time of my exam: CONSTITUTIONAL: Denies fever or chills. CARDIOVASCULAR: Denies chest pain, +shortness of breath, +orthopnea, no PND or palpitations. RESPIRATORY: Denies cough. GASTROINTESTINAL: Denies abdominal pain, diarrhea, constipation, nausea or vomiting. MUSCULOSKELETAL: Denies myalgias. NEUROLOGIC: Denies numbness, tingling or weakness. ENDOCRINE: Denies fatigue, weight change, polydipsia or polyurina. GENITOURINARY: Denies burning, hematuria or urgency with micturation. HEMATOLOGIC: Denies history of anemia or bleeding. PHYSICAL EXAMINATION Vital signs reviewed. CONSTITUTIONAL: No apparent distress. HEENT: Head is normocephalic. Pupils are equal, round. Sclerae anicteric. Mucous membranes of the mouth are moist. No JVD. No carotid bruit. CHEST EXAMINATION: Lungs are clear to auscultation. No chest wall tenderness is noted on palpation or with deep breathing. HEART EXAMINATION: Tachycardic, with regular rhythm. S1, S2 heard. No murmurs, gallops or rub. ABDOMEN: Soft, nontender. Positive bowel sounds. EXTREMITIES: 2+ peripheral pulses, 2+ lower extremity edema and no calf tenderness. NEUROLOGIC EXAMINATION: Patient is awake, alert and oriented x3. ASSESSMENT 1. Acute on chronic diastolic heart failure 2. Atrial flutter/possible atrial tachycardia with RVR 3. History of previous atrial flutter status post atrial flutter ablation 12/2020 4. History of pulmonary nodule with possible concern of sarcoidosis 5. Dyspnea multifactorial related to heart failure as well as atrial flutter with RVR 6. Apparent history of necrotizing myositis previously on steroids being evaluated for immunologic 7. Possible obstructive sleep apnea PLAN Patient has had worsened heart failure type symptoms. EKG and monitor show what appears to be atrial flutter with RVR. Stop losartan for now to allow for increase in rate controlling medications. Check 2-D echo to evaluate for EF as patient's main symptoms appear related to congestive heart failure. Amiodarone drip and Cardizem drip as tolerated. Further recommendations to follow. Past Medical History Past Medical History: Atrial Fibrillation, Hypertension, Osteoarthritis (OA) Additional Past Medical History / Comment(s): FATTY LIVER., SINUS PROBLEMS, STATES BEING TESTED FOR [facility]MM[facility]E [facility] SYMPTOMS OF LOSS OF STRENGTH, FEELS TIRED ELEVATED CK AND LIVER ENZYMES, STATES SHOT FOR HEPATITIS AT 10 YRS OLD ? EXPOSURE., SEE CARDIOLOGY H & P., STATES SOB. History of Any Multi-Drug Resistant Organisms: None Reported Past Surgical History: Orthopedic Surgery Additional Past Surgical History / Comment(s): RIGHT CARPAL TUNNEL RELEASE, COLONOSCOPY. WISDOM TEETH., MUSCLE BX. Past Anesthesia/Blood Transfusion Reactions: No Reported Reaction Past Psychological History: No Psychological Hx Reported Smoking Status: Former smoker Past Alcohol Use History: Rare Additional Past Alcohol Use History / Comment(s): STARTED SMOKING AT AGE 14, SMOKED SMOKED 1 PPD, QUIT 10/2015 Past Drug Use History: None Reported - Past Family History Father Family Medical History: Cancer Additional Family Medical History / Comment(s): PROSTATE CANCER Mother Family Medical History: Cancer Additional Family Medical History / Comment(s): COLON CANCER X2 Brother(s) Family Medical History: Cancer Additional Family Medical History / Comment(s): SKIN Medications and Allergies Home Medications Medication Instructions Recorded Confirmed Type Multivitamins, Thera [Multivitamin 2 tab PO DAILY 08/28/18 02/12/22 History (formulary)] Freer-3 Fatty Acids/Fish Oil [Fish 1,400 mg PO HS 08/28/18 02/12/22 History Oil 1,000 mg Softgel] Apixaban [Eliquis] 5 mg PO BID #60 tab 12/25/20 02/12/22 Rx Furosemide [Lasix] 20 mg PO DAILY 02/12/22 02/12/22 History Losartan Potassium 100 mg PO DAILY 02/12/22 02/12/22 History Metoprolol Succinate [Toprol XL] 75 mg PO DAILY 02/12/22 02/12/22 History Allergies Allergy/AdvReac Type Severity Reaction Status Date / Time No Known Allergies Allergy Verified 02/12/22 11:34 Physical Exam Vitals: Vital Signs Temp Pulse Pulse Resp BP BP Pulse Ox 02/12/22 11:48 97.3 F L 71 18 108/77 97 02/12/22 08:00 97.7 F 104 H 18 108/72 98 02/12/22 07:03 72 18 02/12/22 06:48 98.1 F 72 18 135/76 97 02/12/22 06:01 71 18 126/82 95 02/12/22 05:00 71 18 109/73 95 02/12/22 04:00 98 18 113/80 95 02/12/22 03:19 141 H 18 126/94 95 02/12/22 02:17 141 H 02/12/22 01:58 97.7 F 143 H 19 134/94 99 Intake and Output 02/11/22 02/12/22 02/12/22 22:59 06:59 14:59 Other: Voiding Method Toilet Urinal # Voids 1 Weight 122.47 kg Results 02/12/22 02:28 02/12/22 02:28 Cardiac Enzymes 02/12/22 02/12/22 02/12/22 Range/Units 02:28 02:28 05:36 AST 50 (17-59) U/L Troponin I 0.012 <0.012 (0.000-0.034) ng/mL 02/12/22 Range/Units 07:52 AST (17-59) U/L Troponin I <0.012 (0.000-0.034) ng/mL Coagulation 02/12/22 Range/Units 02:28 PT 11.1 (9.0-12.0) sec APTT 25.1 (22.0-30.0) sec CBC 02/12/22 Range/Units 02:28 WBC 5.0 (3.8-10.6) k/uL RBC 4.22 L (4.30-5.90) m/uL Hgb 13.0 (13.0-17.5) gm/dL Hct 39.3 (39.0-53.0) % Plt Count 233 (150-450) k/uL Comprehensive Metabolic Panel 02/12/22 Range/Units 02:28 Sodium 138 (137-145) mmol/L Potassium 3.9 (3.5-5.1) mmol/L Chloride 106 (98-107) mmol/L Carbon Dioxide 22 (22-30) mmol/L BUN 16 (9-20) mg/dL Creatinine 0.83 (0.66-1.25) mg/dL Glucose 116 H (74-99) mg/dL Calcium 9.3 (8.4-10.2) mg/dL AST 50 (17-59) U/L ALT 61 H (4-49) U/L Alkaline Phosphatase 44 (38-126) U/L Total Protein 6.7 (6.3-8.2) g/dL Albumin 4.0 (3.5-5.0) g/dL Current Medications Generic Name Dose Route Start Last Admin Trade Name Freq PRN Reason Stop Dose Admin Apixaban 5 mg 02/12/22 09:00 02/12/22 08:39 Apixaban 5 Mg Tab PO 5 mg BID ARIEL Administration Protocol Famotidine 20 mg 02/12/22 09:00 02/12/22 08:31 Famotidine 20 Mg Tab PO Not Given BID ARIEL Furosemide 40 mg 02/12/22 14:45 Furosemide 10 Mg/Ml 4 Ml Vial IV DAILY ARIEL Diltiazem HCl 125 mg/ Sodium 125 mls @ 5 mls/hr 02/12/22 03:15 02/12/22 03:17 Chloride IV 5 mg/hr .Q24H ARIEL 5 mls/hr Administration 5 MG/HR Amiodarone HCl 360 mg/ 200 mls @ 33.333 mls/hr 02/12/22 12:56 02/12/22 13:47 Dextrose/Water IV 02/12/22 18:55 1 mg/min .Q6H ONE 33.333 mls/hr Administration Protocol 1 MG/MIN Amiodarone HCl 450 mg/ 250 mls @ 16.667 mls/hr 02/12/22 19:00 Dextrose/Water IV 02/13/22 12:59 .Q15H ARIEL Protocol 0.5 MG/MIN Lorazepam 0.5 mg 02/12/22 04:55 Lorazepam 2 Mg/Ml Inj IV Q6HR PRN Anxiety Losartan Potassium 100 mg 02/12/22 21:00 Losartan 50 Mg Tab PO HS ARIEL Metoprolol Succinate 75 mg 02/12/22 09:00 02/12/22 08:39 Metoprolol Succinate (Er) 25 Mg Tab.Er.24h PO 75 mg DAILY ARIEL Administration Naloxone HCl 0.2 mg 02/12/22 04:55 Naloxone 0.4 Mg/Ml 1 Ml Vial IV Q2M PRN Opioid Reversal Ondansetron HCl 4 mg 02/12/22 04:55 Ondansetron 4 Mg/2 Ml Vial IVP Q8HR PRN Nausea And Vomiting Pantoprazole Sodium 40 mg 02/12/22 09:00 02/12/22 08:32 Pantoprazole 40 Mg/10 Ml Vial IV Not Given DAILY ARIEL Intake and Output 02/11/22 02/12/22 02/12/22 22:59 06:59 14:59 Other: Voiding Method Toilet Urinal # Voids 1 Weight 122.47 kg 02/12/22 02:28 02/12/22 02:28
[2022-02-12] MEDS: FUROSEMIDE 10 MG/ML 4 ML VIAL IV SCH (15:34)
[2022-02-12 17:05] LABS: Appearance,Urine Clear (Clear); Bilirubin,Urine Negative (Negative); Blood,Urine Negative (Negative); Color,Urine Colorless; Glucose,Urine (UA) Negative (Negative); Ketones,Urine Negative (Negative); Leukocyte Esterase,Urine Negative (Negative); Nitrite,Urine Negative (Negative); PH, Urine 6.5 (5.0-8.0); Protein,Urine Negative (Negative); Specific Gravity,Urine 1.004 (1.001-1.035); Urobilinogen,Urine <2.0 mg/dL (<2.0)
[2022-02-12] MEDS: AMIODARONE 450 MG in DEXTROSE 5% IN WATER 250 ML IV SCH ×2 (20:01)
[2022-02-12] MEDS ORDERED: LOSARTAN 50 MG TAB PO SCH ×2 (21:00)
[2022-02-13 07:35] LABS: African American GFR (CKD) >90 (>60 ml/min/1.73 sqM); Anion Gap 3 mmol/L; Blood Urea Nitrogen 15 mg/dL (9-20); Calcium 8.9 mg/dL (8.4-10.2); Carbon Dioxide 30 mmol/L (22-30); Chloride 104 mmol/L (98-107); Glucose 118 mg/dL (74-99); Non-African American GFR(CKD) >90 (>60 ml/min/1.73 sqM); Potassium 4.4 mmol/L (3.5-5.1); Sodium 137 mmol/L (137-145)
[2022-02-13] MEDS: FUROSEMIDE 10 MG/ML 4 ML VIAL IV SCH (08:51)
[2022-02-13] MEDS: PANTOPRAZOLE 40 MG/10 ML VIAL IV SCH (08:51)
[2022-02-13] MEDS: FAMOTIDINE 20 MG TAB PO SCH (08:51)
[2022-02-13] MEDS: METOPROLOL SUCCINATE (ER) 25 MG TAB.ER.24H PO SCH (08:51)
[2022-02-13] MEDS: APIXABAN 5 MG TAB PO SCH ×2 (08:51→20:47)
[2022-02-13] MEDS: DILTIAZEM ORAL 30 MG TAB PO SCH ×3 (13:10→20:47)
[2022-02-13] MEDS: AMIODARONE 200 MG TAB PO SCH ×2 (13:10→22:38)
[2022-02-13] MEDS: AMIODARONE 450 MG in DEXTROSE 5% IN WATER 250 ML IV SCH ×2 (13:23)
--- NOTE | 2022-02-13 14:51 | P.PN ---
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 He states that he had been doing fairly well until a week ago or so when he started 2 note lower extremity edema and orthopnea and increased dyspnea with exertion. He denies any actual chest pain or pressure. Denies any actual palpitations or heart racing sensation in his main symptom is shortness breath. On presentation he was found to be in atrial flutter with heart rate 140 bpm with left bundle branch block. 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 Denies any recent echo within the last year. He states that since his ablation in December he has not had many issues with palpitations however cannot really even feel when his heart is racing at 140 bpm. EKG on presentation showed atrial flutter versus an atrial tachycardia with rate of 143 bpm with left bundle branch morphology. Troponins noted to be normal 3. ProBNP 579. 02/13/2022 Patient examined at the bedside. Patient denies chest pain or pressure. Denies SOB. Remains on IV amio and IV cardizem. Vital signs are stable. Telemetry reveals atrial fibrillation with heart rates around 100. PHYSICAL EXAM: VITAL SIGNS: Reviewed. GENERAL: Well-developed in no acute distress. NECK: Supple. No JVD or thyromegaly LUNGS: Respirations even and unlabored. Lungs essentially clear to auscultation bilaterally. HEART: Irregular rate and rhythm. S1 and S2 heard. EXTREMITIES: Normal range of motion. No clubbing or cyanosis. Peripheral pulses intact. Trace lower extremity edema ASSESSMENT: 1. Acute on chronic diastolic heart failure 2. Atrial flutter/possible atrial tachycardia with RVR 3. History of previous atrial flutter status post atrial flutter ablation 12/2020 4. History of pulmonary nodule with possible concern of sarcoidosis 5. Dyspnea multifactorial related to heart failure as well as atrial flutter with RVR 6. 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 Possible obstructive sleep apnea PLAN: Discontinue IV amio and cardizem Begin oral amio and cardizem Discontinue IV lasix. Begin oral lasix Continue telemetry monitoring 2D echo ordered. Await results Further recommendations pending patient course Nurse practitioner note has been reviewed by physician. Signing provider agrees with the documented findings, assessment, and plan of care. Objective - Vital Signs Vital signs: Vital Signs Temp 98.3 F 02/13/22 13:05 Pulse 101 H 02/13/22 13:05 Resp 20 02/13/22 13:05 BP 109/71 02/13/22 13:05 Pulse Ox 95 02/13/22 13:05 Intake & Output 02/12/22 02/13/22 02/13/22 18:59 06:59 18:59 Intake Total 618.5 118 Output Total 1999 2249 Balance 618.5 Weight 125.6 kg Intake: Intake, IV Titration 78.5 Amount Diltiazem 125 mg In 78.5 Sodium Chloride 0.9% 100 ml @ 5 MG/HR 5 mls/hr IV .Q24H [facility] Rx#:[id number] Oral 540 118 Output: Urine 1999 2249 Other: Voiding Method Toilet Toilet Toilet Urinal Urinal Urinal # Voids 2 1 - Labs CBC & Chem 7: 02/12/22 02:28 02/13/22 06:25 Labs: Abnormal Lab Results - Last 24 Hours (Table) 02/13/22 Range/Units 06:25 Glucose 118 H (74-99) mg/dL
[2022-02-13 17:39] VITALS: RESP 18
--- NOTE | 2022-02-13 20:31 | P.PN ---
Subjective Progress Note Date: 02/13/22 (delayed charting seen at 0945) Principal diagnosis: palpitations Patient is a 51-year-old male with a history of A. fib status post ablation on [facility], hypertension, and osteoarthritis who presented with complaints of palpitations. He had been following [facility] was scheduled to undergo further evaluation however he lost his insurance which will be dictated on February 24. He did follow with Dr. Pérez in the past. His last ablation was approximately one year ago, however Dr. Pérez has referred him to [facility] for evaluation of possible sarcoidosis. He states that his pulse rate was in the 40s to 50s but then over the last week has been uncontrolled. He did call his [facility] doctor who recommended outpatient EKG which were performed on Sunday however he has not had a chance to review it at this time. He decided to present to the ER because his palpitations are becoming more frequent and he felt his heart rate up. He reports that his last echocardiogram was approximately one year ago and showed an ejection fraction of 50%. He has no history of congestive heart failure in the past. Patient seen and examined at bedside. He reports he continues to feel palpit ations. He states that sometimes he startles himself awake from sleep and feel short of breath. His has been thing he needs a sleep apnea evaluation. General: non toxic, no distress, appears at stated age Derm: warm, dry Head: atraumatic, normocephalic, symmetric Eyes: EOMI, no lid lag, anicteric sclera Mouth: no lip lesion, mucus membranes moist Cardiovascular: S1S2 irreg, no murmur, positive posterior tibial pulse bilateral, Lungs: CTA bilateral, no rhonchi, no rales , no accessory muscle use Abdominal: soft, nontender to palpation, no guarding, no appreciable organomegaly Ext: no gross muscle atrophy, 2+edema, no contractures Neuro: CN II-XI grossly intact, no focal neuro deficits Psych: Alert, oriented, appropriate affect Assessment/Plan: A fib with RVR s/p ablation Acute exacerbation of systolic CHF- EF 35-40% - follows with [facility] - transitioned off amio gtt and on to orals - transitioned off IV cardizem and on to oral - add lisinopril - lasix transitioned to PO - tele - cardio recs appreciated - on oral metoprolol HTN - follow BP - continue with cozaar and Metoprolol Fatty liver disease - outpatient follow-up Myositis - being evaluated by [facility] DVT prophylaxis: Cheri Discussed with: patient, nursing Anticipated discharge: in AM Anticipated discharge place: home A total of 35 minutes was spent on the care of this complex patient more than 50% of the time was spent in counseling and care coordination. Active Medications Amiodarone HCl (Amiodarone 200 Mg Tab) 400 mg PO BID [facility] Last Admin: 02/13/22 13:10 Dose: 400 mg Documented by: Apixaban (Apixaban 5 Mg Tab) 5 mg PO BID [facility]; Protocol Last Admin: 02/13/22 08:51 Dose: 5 mg Documented by: Diltiazem HCl (Diltiazem Oral 30 Mg Tab) 30 mg PO TID [facility] Last Admin: 02/13/22 17:24 Dose: 30 mg Documented by: Furosemide (Furosemide 40 Mg Tab) 40 mg PO DAILY [facility] Lorazepam (Lorazepam 2 Mg/Ml Inj) 0.5 mg IV Q6HR PRN PRN Reason: Anxiety Metoprolol Succinate (Metoprolol Succinate (Er) 25 Mg Tab.Er.24h) 75 mg PO DAILY [facility] Last Admin: 02/13/22 08:51 Dose: 75 mg Documented by: Naloxone HCl (Naloxone 0.4 Mg/Ml 1 Ml Vial) 0.2 mg IV Q2M PRN PRN Reason: Opioid Reversal Ondansetron HCl (Ondansetron 4 Mg/2 Ml Vial) 4 mg IVP Q8HR PRN PRN Reason: Nausea And Vomiting Active Medications Generic Name Dose Route Start Last Admin Trade Name Freq PRN Reason Stop Dose Admin Amiodarone HCl 400 mg 02/13/22 13:00 02/13/22 13:10 Amiodarone 200 Mg Tab PO 400 mg BID ARIEL Administration Apixaban 5 mg 02/12/22 09:00 02/13/22 08:51 Apixaban 5 Mg Tab PO 5 mg BID ARIEL Administration Protocol Diltiazem HCl 30 mg 02/13/22 13:00 02/13/22 17:24 Diltiazem Oral 30 Mg Tab PO 30 mg TID ARIEL Administration Furosemide 40 mg 02/14/22 09:00 Furosemide 40 Mg Tab PO DAILY ARIEL Lorazepam 0.5 mg 03/20/22 04:55 Lorazepam 2 Mg/Ml Inj IV Q6HR PRN Anxiety Metoprolol Succinate 75 mg 02/13/22 09:00 02/13/22 08:51 Metoprolol Succinate (Er) 25 Mg Tab.Er.24h PO 75 mg DAILY ARIEL Administration Naloxone HCl 0.2 mg 02/12/22 04:55 Naloxone 0.4 Mg/Ml 1 Ml Vial IV Q2M PRN Opioid Reversal Ondansetron HCl 4 mg 02/12/22 04:55 Ondansetron 4 Mg/2 Ml Vial IVP Q8HR PRN Nausea And Vomiting Objective - Vital Signs Vital signs: Vital Signs Temp 98 F 02/13/22 17:20 Pulse 108 H 02/13/22 17:20 Resp 18 02/13/22 17:20 BP 108/79 02/13/22 17:20 Pulse Ox 96 02/13/22 17:20 Intake & Output 02/13/22 02/13/22 02/14/22 06:59 18:59 06:59 Intake Total 236 Output Total 1999 2249 Balance -1999 -2013 Weight 125.6 kg Intake: Oral 236 Output: Urine 1999 2249 Other: Voiding Method Toilet Toilet Urinal Urinal # Voids 1 - Labs CBC & Chem 7: 02/12/22 02:28 02/13/22 06:25 Labs: Abnormal Lab Results - Last 24 Hours (Table) 02/13/22 Range/Units 06:25 Glucose 118 H (74-99) mg/dL
[2022-02-14 07:47] LABS: HCT 40.5 % (39.0-53.0); HGB 13.2 gm/dL (13.0-17.5); MCH 30.9 pg (25.0-35.0); MCHC 32.6 g/dL (31.0-37.0); Mean Platelet Volume 7.3; Platelet Count 225 k/uL (150-450); RBC 4.27 m/uL (4.30-5.90); RDW 12.7 % (11.5-15.5); WBC 6.2 k/uL (3.8-10.6)
[2022-02-14 08:06] LABS: African American GFR (CKD) >90 (>60 ml/min/1.73 sqM); Anion Gap 8 mmol/L; Blood Urea Nitrogen 14 mg/dL (9-20); Calcium 8.9 mg/dL (8.4-10.2); Carbon Dioxide 25 mmol/L (22-30); Chloride 105 mmol/L (98-107); Glucose 113 mg/dL (74-99); Magnesium 2.1 mg/dL (1.6-2.3); Non-African American GFR(CKD) >90 (>60 ml/min/1.73 sqM); Potassium 4.7 mmol/L (3.5-5.1); Sodium 138 mmol/L (137-145)
[2022-02-14] MEDS ORDERED: FUROSEMIDE 40 MG TAB PO SCH (09:00)
[2022-02-14] MEDS ORDERED: lisinopriL 5 MG TAB PO SCH (09:00)
[2022-02-14] MEDS: DILTIAZEM ORAL 30 MG TAB PO SCH (09:07)
[2022-02-14] MEDS: AMIODARONE 200 MG TAB PO SCH (09:07)
[2022-02-14] MEDS: METOPROLOL SUCCINATE (ER) 25 MG TAB.ER.24H PO SCH (09:07)
[2022-02-14] MEDS: APIXABAN 5 MG TAB PO SCH (09:07)
--- NOTE | 2022-02-14 09:10 | P.PN ---
Subjective Progress Note Date: 02/14/22 PROGRESS NOTE The patient is a 51-year-old male with a history of hypertension, possible sarcoidosis, prior history of atrial flutter ablation who presented was progressive dyspnea and palpitations. Was noted to be in atrial flutter with rapid ventricular response. He is feeling better today. His ventricular rate is controlled. He denies any chest discomfort. He continues to have mild dyspnea. He denies any dizziness or palpitations. Hemodynamically he is stable. He is scheduled to undergo workup at [facility] for possible sarcoidosis and subsequent ablation if needed. He continues to be on amiodarone 400 mg twice a day, Eliquis 5 mg twice a day, Cardizem 30 mg 3 times a day, metoprolol succinate 75 mg daily, lisinopril 5 mg daily and Lasix 40 mg daily. Echocardiogram showed an ejection fraction of 35-40% with [id number] mitral regurgitation. PHYSICAL EXAMINATION: Blood pressure 120/70 heart rate 90 LUNGS: [Clear to auscultation] HEART: [Irregular rate and rhythm, S1, S2. No S3. No systolic murmur] ABDOMEN: [Soft, nontender, no organomegaly] EXTREMETIES: [1+ edema] LAB: BUN 14, creatinine 0.89. TSH 2.4 IMPRESSION: 1. Atrial flutter with rapid ventricular response, under better control with evidence of cardiomyopathy 2. Questionable sarcoidosis, workup in progress 3. History of hypertension 4. Mild peripheral edema with no evidence of lung congestion PLAN: 1. Continue present therapy and the present dose of amiodarone for one week then decrease to 200 mg twice a day 2. Continue beta raphael and MARCELO inhibitor 3. Increase level of activity 4. Add Aldactone 5. If stable probable discharge in 24-48 hours and follow-up at [facility]. Objective - Vital Signs Vital signs: Vital Signs Temp 97.6 F 02/14/22 04:00 Pulse 97 02/14/22 04:00 Resp 18 02/14/22 04:00 BP 120/73 02/14/22 04:00 Pulse Ox 95 02/14/22 04:00 Intake & Output 02/13/22 02/14/22 02/14/22 18:59 06:59 18:59 Intake Total 236 Output Total 2250 Intake: Oral 236 Output: Urine 2250 Other: Voiding Method Toilet Toilet Urinal Urinal # Voids 1 - Labs CBC & Chem 7: 02/14/22 07:07 02/14/22 07:07 Labs: Abnormal Lab Results - Last 24 Hours (Table) 02/14/22 02/14/22 Range/Units 07:07 07:07 RBC 4.27 L (4.30-5.90) m/uL Glucose 113 H (74-99) mg/dL
[2022-02-14] MEDS ORDERED: SPIRONOLACTONE 25 MG TAB PO SCH (09:15)
--- NOTE | 2022-02-14 11:06 | P.PN ---
Subjective Progress Note Date: 02/14/22 Patient is a 51-year-old male with a history of A. fib status [facility], hypertension, and osteoarthritis who presented with complaints of palpitations. He had been following [facility] was scheduled to undergo further evaluation however he lost his insurance which will be dictated on February 24. He did follow with Dr. Pérez in the past. His last ablation was approximately one year ago, however Dr. Pérez has referred him to [facility] for evaluation of possible sarcoidosis. He states that his pulse rate was in the 40s to 50s but then over the last week has been uncontrolled. He did call his [facility] doctor who recommended outpatient EKG which were performed on Sunday however he has not had a chance to review it at this time. He decided to present to the ER because his palpitations are becoming more frequent and he felt his heart rate up. He reports that his last echocardiogram was approximately one year ago and showed an ejection fraction of 50%. He has no history of congestive heart failure in the past. Patient had an echocardiogram done on this admission that showed an EF of 35- 40%. Patient is being followed by cardiology. Patient currently on amiodarone 400 mg twice a day, eloquent was 5 mg twice a day, Cardizem 30 mg 3 times a day and metoprolol succinate 75 mg daily and lisinopril 5 mg daily and Lasix 40 mg daily. Cardiology added spironolactone. This morning patient is denying any acute complaints. 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 Cardiology would like to monitor him for another 24-48 hours. Patient stated that he would like to go home. 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 fib with RVR with history of ablation Newly discovered cardiomyopathy with EF of 35-40% likely due to A. fib with RVR -Resume amiodarone, metoprolol, Cardizem, Lasix -Patient started on lisinopril and spironolactone -Patient continues to have episodes of A. fib with RVR -Cardiology would like to continue monitoring patient -Patient being worked up at [facility] for sarcoidosis Hypertension -Controlled resume medications as above Fatty liver disease -Outpatient follow-up DVT prophylaxis: Cheri Discussed with: patient Anticipated discharge: 24-[address]: home
[2022-02-14 12:47] VITALS: BP 115/85; PULSE 95; TEMP 96.3
--- NOTE | 2022-02-14 13:01 | ECHOF ---
Referral Reason:afib rvr , LVEF MEASUREMENTS -------- HEIGHT: 177.8 cm WEIGHT: 125.2 kg BP: 119/80 RVIDd: 3.9 cm (< 3.3) IVSd: 1.5 cm (0.6 - 1.1) LVIDd: 4.7 cm (3.9 - 5.3) LVPWd: 1.4 cm (0.6 - 1.1) IVSs: 1.7 cm LVIDs: 4.0 cm LVPWs: 1.7 cm LA Diam: 3.8 cm (2.7 - 3.8) LAESV Index (A-L): 31.40 ml/m Ao Diam: 3.3 cm (2.0 - 3.7) AV Cusp: 2.5 cm (1.5 - 2.6) MV EXCURSION: 24.989 mm (> 18.000) MV EF SLOPE: 176 mm/s (70 - 150) EPSS: 0.8 cm RAP: 5.00 mmHg RVSP: 37.68 mmHg FINDINGS -------- Atrial fibrillation. This was a technically adequate study. The left ventricular size is normal. There is moderate concentric left ventricular hypertrophy. O verall left ventricular systolic function is moderately impaired with, an EF between 35 - 40 %. The right ventricle is mild to moderately enlarged. LA is midly dilated 29-33ml/m2. The right atrium is normal in size. Interatrial and interventricular septum intact. Trace to mild aortic regurgitation. Pxlx-hm-jfcaijnd mitral regurgitation is present. Mild tricuspid regurgitation present. There is mild pulmonary hypertension. The right ventricular systolic pressure, as measured by Doppler, is 37.68mmHg. Trace/mild (physiologic) pulmonic regurgitation. The aortic root size is normal. Normal inferior vena cava with normal inspiratory collapse consistent with estimated right atrial pre ssure of 5 mmHg. The inferior vena cava is mildly dilated. There is no pericardial effusion. CONCLUSIONS -------- 1. The left ventricular size is normal. 2. There is moderate concentric left ventricular hypertrophy. 3. Overall left ventricular systolic function is moderately impaired with, an EF between 35 - 40 %. 4. The right ventricle is mild to moderately enlarged. 5. LA is midly dilated 29-33ml/m2. 6. Trace to mild aortic regurgitation. 7. Kitm-bi-tlwvlorx mitral regurgitation is present. 8. Mild tricuspid regurgitation present. 9. There is mild pulmonary hypertension. 10. The right ventricular systolic pressure, as measured by Doppler, is 37.68mmHg. 11. Trace/mild (physiologic) pulmonic regurgitation. 12. There is no pericardial effusion. DBA: Radha Caraballo RDCS
--- NOTE | 2022-02-14 14:27 | P.DS ---
Providers Date of admission: 02/12/22 04:55 Expected date of discharge: 02/14/22 Attending physician: Agus Boo MD Consults: 02/12/22 05:18 Consult Physician Routine Consulting Provider: Carson Lynne Consult Reason/Comments: afib rvr Do you want consulting provider notified?: Yes, Notify in am [facility] Course: Discharge Diagnosis: Atrial fibrillation with RVR status post history of ablation Newly discovered cardiomyopathy with EF of 35-40% Hypertension Fatty liver disease Hospital Course: Patient is a 51-year-old male with a past medical history of atrial fibrillation status post ablation and hypertension 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 Patient was found to be in A. 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 Patient was started on amiodarone drip. He was transitioned to oral amiodarone and also started on Cardizem. Patient had an echocardiogram done that showed an EF of 35%. Patient was treated with IV Lasix and then transition to oral Lasix. He was also started on spironolactone. Patient was cleared by cardiology for discharge. He was told to follow-up with [facility] regarding workup for his cardiomyopathy. At the time of discharge patient's heart rate was controlled. He wanted to be discharged. Patient seen and examined at bedside.[] Vital signs reviewed and stable. General: [non toxic], [no distress], [appears at stated age] Derm: [warm], [dry] Head: [atraumatic], [normocephalic], [symmetric] Eyes: [EOMI], [no lid lag], [anicteric sclera] Mouth: [no lip lesion], [mucus membranes moist] Cardiovascular: Irregularly irregular Lungs: [CTA bilateral], [no rhonchi, no rales] , [no accessory muscle use] Abdominal: [soft], [ nontender to palpation], [no guarding], [no appreciable organomegaly] Ext: [no gross muscle atrophy], [no edema], [no contractures] Neuro: [ CN II-XI grossly intact], [no focal neuro deficits] Psych: [Alert], [oriented], [appropriate affect] A total of [32] minutes of time were spent preparing this complex discharge summary . Patient Condition at Discharge: Good Plan - Discharge Summary Discharge Rx Participant: No New Discharge Prescriptions: New Spironolactone [Aldactone] 25 mg PO DAILY #30 tab Diltiazem Oral [Cardizem*] 30 mg PO TID #90 tab Amiodarone [Cordarone] 200 mg PO BID #74 tab lisinopriL [Zestril] 5 mg PO DAILY #30 tab Furosemide [Lasix] 40 mg PO DAILY #30 tab Continue [place]-3 Fatty Acids/Fish Oil [Fish Oil 1,000 mg Softgel] 1,400 mg PO HS Multivitamins, Thera [Multivitamin (formulary)] 2 tab PO DAILY Apixaban [Eliquis] 5 mg PO BID #60 tab Metoprolol Succinate [Toprol XL] 75 mg PO DAILY Discontinued Furosemide [Lasix] 20 mg PO DAILY Losartan Potassium 100 mg PO DAILY Discharge Medication List Multivitamins, Thera [Multivitamin (formulary)] 2 tab PO DAILY 08/28/18 [History] [place]-3 Fatty Acids/Fish Oil [Fish Oil 1,000 mg Softgel] 1,400 mg PO HS 08/28/18 [History] Apixaban [Eliquis] 5 mg PO BID #60 tab 12/25/20 [Rx] Metoprolol Succinate [Toprol XL] 75 mg PO DAILY 02/12/22 [History] Amiodarone [Cordarone] 200 mg PO BID #74 tab 02/14/22 [Rx] Diltiazem Oral [Cardizem*] 30 mg PO TID #90 tab 02/14/22 [Rx] Furosemide [Lasix] 40 mg PO DAILY #30 tab 02/14/22 [Rx] Spironolactone [Aldactone] 25 mg PO DAILY #30 tab 02/14/22 [Rx] lisinopriL [Zestril] 5 mg PO DAILY #30 tab 02/14/22 [Rx] Follow up Appointment(s)/Referral(s): Jesus Patterson MD [Primary Care Provider] - 1-2 days Discharge Disposition: HOME SELF-CARE
== END 2022-02-14 16:30 | disposition home or self-care (01) | DRG 308 ==
LOC: EC 01:47 → 3SCARD 04:55
PROVIDERS: ADMIT Internal Medicine; ATTEND Internal Medicine
DX: I48.91 Unspecified atrial fibrillation (principal); I50.43 Acute on chronic combined systolic (congestive) and diastolic (congestive) heart failure; I47.1 Supraventricular tachycardia; I11.0 Hypertensive heart disease with heart failure; I47.2 Ventricular tachycardia; M60.9 Myositis, unspecified; I27.20 Pulmonary hypertension, unspecified; I37.1 Nonrheumatic pulmonary valve insufficiency; I34.0 Nonrheumatic mitral (valve) insufficiency; F41.9 Anxiety disorder, unspecified; D86.9 Sarcoidosis, unspecified; I44.7 Left bundle-branch block, unspecified; I48.92 Unspecified atrial flutter; R00.2 Palpitations; K76.0 Fatty (change of) liver, not elsewhere classified; Z79.01 Long term (current) use of anticoagulants; Z79.899 Other long term (current) drug therapy; Z80.0 Family history of malignant neoplasm of digestive organs; I42.9 Cardiomyopathy, unspecified; Z80.42 Family history of malignant neoplasm of prostate; Z87.891 Personal history of nicotine dependence
CPT/HCPCS: 36415; 71046; 80048; 80053; 81003; 82550; 83735; 83880; 84100; 84443; 84484; 85025; 85027; 85610; 85730; 93005; 93306; 96365; 96366; 96375; 99291

== ENCOUNTER 2022-05-15 14:33 | Inpatient (IN) | payer OTHER ==
[2022-05-15] MEDS ORDERED: SODIUM CHLORIDE 0.9% 500 ML 500 ML IV STA (14:43)
[2022-05-15 14:47] LABS: Glucose,Whole Blood 204 mg/dL (70-110)
[2022-05-15 15:10] LABS: Basophils # (A) 0.1 k/uL (0-0.2); Basophils % (A) 1 %; Eosinophils # (A) 0.2 k/uL (0-0.7); Eosinophils % (A) 3 %; HCT 40.6 % (39.0-53.0); HGB 13.8 gm/dL (13.0-17.5); Lymphocytes # (A) 1.7 k/uL (1.0-4.8); Lymphocytes % (A) 29 %; MCH 30.6 pg (25.0-35.0); MCV 90.1 fL (80.0-100.0); Mean Platelet Volume 7.2; Monocytes # (A) 0.2 k/uL (0-1.0); Monocytes % (A) 4 %; Neutrophils # (A) 3.7 k/uL (1.3-7.7); Neutrophils % (A) 62 %; Platelet Count 259 k/uL (150-450); RDW 13.8 % (11.5-15.5)
--- NOTE | 2022-05-15 15:16 | XR ---
EXAMINATION TYPE: XR chest 1V portable DATE OF EXAM: 05/15/2022 COMPARISON: 02/12/2022 INDICATION: Chest pain TECHNIQUE: Single frontal view of the chest is obtained. FINDINGS: The heart size is mildly enlarged. The pulmonary vasculature is normal. The lungs are clear. IMPRESSION: 1. No acute pulmonary process. 2. Mild cardiomegaly
[2022-05-15 15:23] LABS: Albumin 4.5 g/dL (3.5-5.0); Calcium 9.1 mg/dL (8.4-10.2); Partial Thromboplastin Time 26.6 sec (22.0-30.0); Potassium 4.3 mmol/L (3.5-5.1); Prothrombin Time 10.7 sec (9.0-12.0); Total Bilirubin 1.1 mg/dL (0.2-1.3); Total Protein 7.3 g/dL (6.3-8.2)
[2022-05-15] MEDS ORDERED: AMIODARONE 360 MG in DEXTROSE 5% IN WATER 200 ML IV ONE ×2 (15:30)
[2022-05-15] MEDS ORDERED: SODIUM CHLORIDE 0.9% 1,000 ML IV STA (15:48)
[2022-05-15] MEDS ORDERED: NALOXONE 0.4 MG/ML 1 ML VIAL IV PRN (16:13)
--- NOTE | 2022-05-15 16:16 | ED ---
General Adult HPI - General Chief complaint: Chest Pain Stated complaint: High HR Time Seen by Provider: 05/15/22 14:35 Source: EMS, RN notes reviewed, old records reviewed Mode of arrival: EMS Limitations: no limitations - History of Present Illness Initial comments: Patient is a 51-year-old male with past medical history remarkable for atrial fibrillation, hypertension who is currently being worked up for sarcoidosis to [facility] emergency Department for an unknown tachycardia. Patient states he was driving when he felt lightheaded, he pulled over into the parking lot and states he believes he passed out for an unknown period of time, guessing 1 minutes. States he was having some chest discomfort at that time which pressure sensation and palpitations. He called EMS who arrived and found that he was in a tachycardia arrhythmia with a rate of 200. They believed it was wide complex. Initially they tried one vagal maneuver which was unsuccessful. They put him on a 150 mg amiodarone over 10 minutes. Patient was mildly hypotensive initially to upper 80s or 90s systolic. Vital signs have since improved. Patient states that his chest pain has resolved. He states he feels nearly back to normal at this time. Is uncertain what caused his current symptoms. States he is compliant with his medications. No other acute complaints at this time. Is on Eliquis. - Related Data Home Medications Medication Instructions Recorded Confirmed Multivitamins, Thera [Multivitamin 2 tab PO DAILY 08/28/18 05/15/22 (formulary)] [place]-3 Fatty Acids/Fish Oil [Fish 1 cap PO HS 08/28/18 05/15/22 Oil 1,000 mg Softgel] Metoprolol Succinate [Toprol XL] 50 mg PO DAILY 02/12/22 05/15/22 Amiodarone [Cordarone] 200 mg PO HS 05/15/22 05/15/22 Indomethacin [Indocin] 50 mg PO BID PRN 05/15/22 05/15/22 Metoprolol Succinate [Toprol XL] 100 mg PO DAILY 05/15/22 05/15/22 Sacubitril/Valsartan [Entresto 49 1 tab PO BID 05/15/22 05/15/22 mg-51 mg Tablet] Previous Rx's Medication Instructions Recorded Apixaban [Eliquis] 5 mg PO BID #60 tab 12/25/20 Furosemide [Lasix] 40 mg PO DAILY #30 tab 02/14/22 Spironolactone [Aldactone] 25 mg PO DAILY #30 tab 02/14/22 Allergies Allergy/AdvReac Type Severity Reaction Status Date / Time No Known Allergies Allergy Verified 05/15/22 14:39 Review of Systems ROS Statement: Those systems with pertinent positive or pertinent negative responses have been documented in the HPI. Review of Systems: CONST: Denies fever EYES: Denies blurry vision ENT: Denies nasal congestion C/V: Denies Chest pain RESP: Denies shortness of breath GI: Denies abdominal pain : Denies dysuria SKIN: Denies rash. MSK: Denies joint pain. NEURO: Denies headache ROS Other: All systems not noted in ROS Statement are negative. Past Medical History Past Medical History: Atrial Fibrillation, Hypertension, Osteoarthritis (OA) Additional Past Medical History / Comment(s): FATTY LIVER., SINUS PROBLEMS, STATES BEING TESTED FOR [facility] IMM[facility]E DISEASE [facility] SYMPTOMS OF LOSS OF STRENGTH, FEELS TIRED ELEVATED CK AND LIVER ENZYMES, STATES SHOT FOR HEPATITIS AT 10 YRS OLD ? EXPOSURE., SEE CARDIOLOGY H & P., STATES SOB. History of Any Multi-Drug Resistant Organisms: None Reported Past Surgical History: Orthopedic Surgery Additional Past Surgical History / Comment(s): RIGHT CARPAL TUNNEL RELEASE, COLONOSCOPY. WISDOM TEETH., MUSCLE BX. Past Anesthesia/Blood Transfusion Reactions: No Reported Reaction Past Psychological History: No Psychological Hx Reported Smoking Status: Former smoker Past Alcohol Use History: Rare Past Drug Use History: None Reported - Past Family History Father Family Medical History: Cancer Additional Family Medical History / Comment(s): PROSTATE CANCER Mother Family Medical History: Cancer Additional Family Medical History / Comment(s): COLON CANCER X2 Brother(s) Family Medical History: Cancer Additional Family Medical History / Comment(s): SKIN General Exam - General Exam Comments Initial Comments: General: Appears in no acute distress. HEAD: Normal with no signs of head trauma. EYES: PERRLA, EOMI, conjunctiva normal, no discharge. ENT: Hearing grossly intact, normal oropharynx. RESPIRATORY: Clear breath sounds bilaterally. No wheezes, rales, or rhonchi. C/V: Irregular rate and rhythm. S1 and S2 auscultated. No peripheral edema. Peripheral pulses 2+ and intact throughout. Tachyarrhythmia seems to have resolved based on palpation of pulse. ABD: Abd is soft, nontender, nondistended EXT: Normal range of motion, no obvious deformity SKIN: No rashes or lesions observed on exposed skin. NEURO: Alert and oriented 4. Limitations: no limitations Course Vital Signs 05/15/22 05/15/22 05/15/22 14:34 14:41 14:47 Temperature 98.3 F Pulse Rate 85 84 Pulse Rate [ 85 Administrative Asst ] Respiratory 18 18 Rate Blood Pressure 136/107 120/84 O2 Sat by Pulse 99 99 Oximetry 05/15/22 05/15/22 15:13 16:21 Temperature Pulse Rate 86 88 Pulse Rate [ Administrative Asst ] Respiratory 18 18 Rate Blood Pressure 112/79 99/70 O2 Sat by Pulse 99 100 Oximetry Medical Decision Making - Medical Decision Making Based on the patient's presentation and physical exam, there is concern for cause for this new-onset tachyarrhythmia. EKG was immediately obtained, and patient was placed on the monitor with pads. It does appear that the tachyarrhythmia has resolved as heart rate at that time was in the 80s. EKG showed no acute ischemic findings and also resolution of the tachyarrhythmia. I suspect patient likely had atrial fibrillation with RVR, based on evaluation of the patient's strip brought in by EMS. He does have a wide complex tachycardia but he does have a history of left bundle-branch block as well as what appears to be findings of possible more recent right bundle branch block the precordial leads also show less of a wide complex ventricular tachycardia morphology compared to the other leads. I did discuss this with the patient, however we will obtain a cardiac workup. He received 150 mg of amiodarone over 15 minutes prior to arrival we will continue with the drip for 24 hours. Patient is alr oscar on L Olson, we will continue his. He currently is otherwise asymptomatic. He received 324 mg of aspirin on the way to the hospital. We will administer IV fluids. He was in agreement with this plan. Vital signs within normal limits and stable at this time. Laboratory studies remarkable for an NGUYEN with a BUN of 23 and creatinine of 1.47. Troponin is indeterminate initially 0.033. Remainder the labs are unremarkable. Chest x-ray revealed no acute cardio pulmonary process.Patient will continue to receive IV fluids for the NGUYEN. We'll trend the troponin. On reevaluation come patient remains stable. He is asymptomatic. I would like to admit the hospital for further observation. Cardiology will be consulted. Echo will be ordered. He was in agreement this plan. I did speak with Dr. Gabriel who was in agreement this plan and accepted the patient. Patient was admitted in stable condition. - Lab Data Result diagrams: 05/15/22 14:45 05/15/22 14:45 Lab Results 05/15/22 05/15/22 05/15/22 Range/Units 14:45 14:45 14:45 WBC 6.0 (3.8-10.6) k/uL RBC 4.50 (4.30-5.90) m/uL Hgb 13.8 (13.0-17.5) gm/dL Hct 40.6 (39.0-53.0) % MCV 90.1 (80.0-100.0) fL MCH 30.6 (25.0-35.0) pg MCHC 34.0 (31.0-37.0) g/dL RDW 13.8 (11.5-15.5) % Plt Count 259 (150-450) k/uL MPV 7.2 Neutrophils % 62 % Lymphocytes % 29 % Monocytes % 4 % Eosinophils % 3 % Basophils % 1 % Neutrophils # 3.7 (1.3-7.7) k/uL Lymphocytes # 1.7 (1.0-4.8) k/uL Monocytes # 0.2 (0-1.0) k/uL Eosinophils # 0.2 (0-0.7) k/uL Basophils # 0.1 (0-0.2) k/uL PT 10.7 (9.0-12.0) sec INR 1.0 (<1.2) APTT 26.6 (22.0-30.0) sec Sodium 137 (137-145) mmol/L Potassium 4.3 (3.5-5.1) mmol/L Chloride 104 (98-107) mmol/L Carbon Dioxide 22 (22-30) mmol/L Anion Gap 11 mmol/L BUN 23 H (9-20) mg/dL Creatinine 1.47 H (0.66-1.25) mg/dL Est GFR (CKD-EPI)AfAm 64 (>60 ml/min/1.73 sqM) Est GFR (CKD-EPI)NonAf 55 (>60 ml/min/1.73 sqM) Glucose 190 H (74-99) mg/dL POC Glucose (mg/dL) (70-110) mg/dL POC Glu Kitchen Work Supervisor ID Calcium 9.1 (8.4-10.2) mg/dL Magnesium 2.0 (1.6-2.3) mg/dL Total Bilirubin 1.1 (0.2-1.3) mg/dL AST 79 H (17-59) U/L ALT 70 H (4-49) U/L Alkaline Phosphatase 54 (38-126) U/L Troponin I (0.000-0.034) ng/mL Total Protein 7.3 (6.3-8.2) g/dL Albumin 4.5 (3.5-5.0) g/dL 05/15/22 05/15/22 Range/Units 14:45 14:45 WBC (3.8-10.6) k/uL RBC (4.30-5.90) m/uL Hgb (13.0-17.5) gm/dL Hct (39.0-53.0) % MCV (80.0-100.0) fL MCH (25.0-35.0) pg MCHC (31.0-37.0) g/dL RDW (11.5-15.5) % Plt Count (150-450) k/uL MPV Neutrophils % % Lymphocytes % % Monocytes % % Eosinophils % % Basophils % % Neutrophils # (1.3-7.7) k/uL Lymphocytes # (1.0-4.8) k/uL Monocytes # (0-1.0) k/uL Eosinophils # (0-0.7) k/uL Basophils # (0-0.2) k/uL PT (9.0-12.0) sec INR (<1.2) APTT (22.0-30.0) sec Sodium (137-145) mmol/L Potassium (3.5-5.1) mmol/L Chloride (98-107) mmol/L Carbon Dioxide (22-30) mmol/L Anion Gap mmol/L BUN (9-20) mg/dL Creatinine (0.66-1.25) mg/dL Est GFR (CKD-EPI)AfAm (>60 ml/min/1.73 sqM) Est GFR (CKD-EPI)NonAf (>60 ml/min/1.73 sqM) Glucose (74-99) mg/dL POC Glucose (mg/dL) 204 H (70-110) mg/dL POC Glu Kitchen Work Supervisor Riddhi Booth Calcium (8.4-10.2) mg/dL Magnesium (1.6-2.3) mg/dL Total Bilirubin (0.2-1.3) mg/dL AST (17-59) U/L ALT (4-49) U/L Alkaline Phosphatase (38-126) U/L Troponin I 0.033 (0.000-0.034) ng/mL Total Protein (6.3-8.2) g/dL Albumin (3.5-5.0) g/dL - EKG Data -: EKG Interpreted by Me EKG Comments: 12-lead Electrocardiogram Interpretation Note EKG was reviewed and interpreted by myself. 12-lead ECG performed at 1435 is interpreted by me as revealing rate controlled atrial fibrillation at a rate of 84 beats per minute. Left axis deviation. [place] interval is 198 ms, QRS duration is 178 ms, QTc is 452 ms. There is a bundle branch block, appears to be mildly left as well as right seen on prior EKGs.. There were no acute ST or T wave abnormalities to suggest myocardial ischemia or injury. R wave progression is delayed.. By my interpretation this EKG is non-diagnostic for acute ischemia. If shows signs of a old left bundle branch block with possible more recent right bundle block. No obvious acute signs of ischemia. Disposition Clinical Impression: Syncope, Atrial fibrillation with rapid ventricular response, NGUYEN (acute kidney injury) Disposition: ADMITTED IP TO THIS HOSP Condition: Stable Referrals: Jesus Patterson MD [Primary Care Provider] - 1-2 days Time of Disposition: 16:00
[2022-05-15] MEDS ORDERED: INDOMETHACIN 25 MG CAP PO PRN (16:33)
--- NOTE | 2022-05-15 17:23 | P.HPIM ---
History of Present Illness Chief Complaint: Syncope This is a very pleasant 51-year-old male who is being admitted for evaluation of syncope Patient has history of congestive heart failure with EF of 3040 percent and paroxysmal atrial fibrillation being treated with metoprolol, amiodarone and Eliquis. Patient sustained a brief lightheadedness and syncopal episode while driving today and regained consciousness quickly. No trauma occurred. He denied any headache vertigo respiratory complaints. The was in presence and denied any seizure-like activity. Upon arrival of EMS he was found to be with tachycardia up to 200 bpm. EKG showed wide complex tachycardia. He has known underlying left bundle branch. In emergency department he was wide awake and asymptomatic except for the mild chest discomfort. He was given bolus of IV ami odarone and started amiodarone drip and he converted to normal sinus rhythm. Currently he is completely asymptomatic. About a year prior to this admission he was suspected to have underlying sarcoid osis. He does have some chronic elevation of CPK and his neurologist been following this and has been treating it with course of steroids for 6 months without much improvement. Steroids were weaned off and discontinued 5 months prior to this admission. 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 He has also been planned for ablation of his A. fib. Patient had FDG PET scan last week [facility] and results he show me are indicative of cardiac sarcoidosis with high risk of sudden cardiac . This was discussed with the patient and his . Otherwise he denies any fever or chills diarrhea. Denies any abdominal pain nausea or vomiting. He does have somewhat elevated creatinine and has no prior history of renal problems. He denies any flank pain or blood in the urine. Review of Systems Review of system was performed and is negative except as mentioned in HPI Past Medical History Past Medical History: Atrial Fibrillation, Hypertension, Osteoarthritis (OA) Additional Past Medical History / Comment(s): FATTY LIVER., SINUS PROBLEMS, STATES BEING TESTED FOR AUTO IMMUNE DISEASE AT [facility] SYMPTOMS OF LOSS OF STRENGTH, FEELS TIRED ELEVATED CK AND LIVER ENZYMES, STATES SHOT FOR HEPATITIS AT 10 YRS OLD ? EXPOSURE., SEE CARDIOLOGY H & P., STATES SOB. History of Any Multi-Drug Resistant Organisms: None Reported Past Surgical History: Orthopedic Surgery Additional Past Surgical History / Comment(s): RIGHT CARPAL TUNNEL RELEASE, COLONOSCOPY. WISDOM TEETH., MUSCLE BX. Past Anesthesia/Blood Transfusion Reactions: No Reported Reaction Past Psychological History: No Psychological Hx Reported Smoking Status: Former smoker Past Alcohol Use History: Rare Past Drug Use History: None Reported - Past Family History Father Family Medical History: Cancer Additional Family Medical History / Comment(s): PROSTATE CANCER Mother Family Medical History: Cancer Additional Family Medical History / Comment(s): COLON CANCER X2 Brother(s) Family Medical History: Cancer Additional Family Medical History / Comment(s): SKIN Medications and Allergies Home Medications Medication Instructions Recorded Confirmed Type Multivitamins, Thera [Multivitamin 2 tab PO DAILY 08/28/18 05/15/22 History (formulary)] [place]-3 Fatty Acids/Fish Oil [Fish 1 cap PO HS 08/28/18 05/15/22 History Oil 1,000 mg Softgel] Apixaban [Eliquis] 5 mg PO BID #60 tab 12/25/20 05/15/22 Rx Metoprolol Succinate [Toprol XL] 50 mg PO DAILY 02/12/22 05/15/22 History Furosemide [Lasix] 40 mg PO DAILY #30 tab 02/14/22 05/15/22 Rx Spironolactone [Aldactone] 25 mg PO DAILY #30 tab 02/14/22 05/15/22 Rx Amiodarone [Cordarone] 200 mg PO HS 05/15/22 05/15/22 History Indomethacin [Indocin] 50 mg PO BID PRN 05/15/22 05/15/22 History Metoprolol Succinate [Toprol XL] 100 mg PO DAILY 05/15/22 05/15/22 History Sacubitril/Valsartan [Entresto 49 1 tab PO BID 05/15/22 05/15/22 History mg-51 mg Tablet] Allergies Allergy/AdvReac Type Severity Reaction Status Date / Time No Known Allergies Allergy Verified 05/15/22 14:39 Physical Exam Vitals: Vital Signs Temp Pulse Pulse Resp BP Pulse Ox 05/15/22 16:21 88 18 99/70 100 05/15/22 15:13 86 18 112/79 99 05/15/22 14:47 84 18 120/84 99 05/15/22 14:41 85 05/15/22 14:34 98.3 F 85 18 136/107 99 Intake and Output 05/15/22 05/15/22 05/15/22 06:59 14:59 22:59 Other: Weight 121.1 kg Awake alert oriented 3, no acute distress Head and neck: Anicteric sclera, extraocular movements intact, no facial asymmetry, oropharyngeal mucosa is moist without any lesions, neck is supple without rigidity, no neck masses or neck vein distention Heart: Regular rhythm and rate, S1, S2; no murmurs rubs or gallops Lungs: Breath sounds present bilateral, no wheezing, rhonchi or crackles Abdomen: Bowel sounds present throughout, abdomen is soft, nontender, nondistended, no involuntary guarding, no hernias or organomegaly, no flank tenderness Extremities: No peripheral edema, no cyanosis, warm well perfused with palpable dorsalis pedis pulses bilateral and good capillary refill, without joint swelling or deformities Neurological: Awake alert oriented 3, cranial nerves II12: Without deficits; motor strength is 5 out of 5 in upper and lower extremities proximally and distally, sensitivity to light touch and periphery preserved, [id number] and [id number]-[id number] intact, no ankle clonus no Babinski DTRs are 1+ patellar Results CBC & Chem 7: 05/15/22 14:45 05/15/22 14:45 Labs: Abnormal Lab Results - Last 24 Hours (Table) 05/15/22 05/15/22 Range/Units 14:45 14:45 BUN 23 H (9-20) mg/dL Creatinine 1.47 H (0.66-1.25) mg/dL Glucose 190 H (74-99) mg/dL POC Glucose (mg/dL) 204 H (70-110) mg/dL AST 79 H (17-59) U/L ALT 70 H (4-49) U/L Assessment and Plan Assessment: #Syncope Due to tachy arrhythmia, suspected to be paroxysmal A. fib with RVR versus PSVT with underlying left bundle branch block Responded to IV amiodarone, continues on amiodarone drip Echo ordered Gentle hydration Cycle troponin Cardiology consult Keep on telemetry Continue Eliquis Likely will need AICD #Cardiac sarcoidosis High risk of adverse effects, sudden cardiac Cardiology consulted Start on prednisone Check MARCELO level, ESR, CRP Discussed with family and the patient #Acute kidney injury Rule out involvement due to sarcoidosis Obtain nephrology consultation Check UA Renal ultrasound Hold Entresto #Chronic systolic CHF Appears euvolemic Received IV fluids in ER, discontinue now Continue beta raphael We'll hold Entresto due to devante DVT prophylaxis: Eliquis Patient will need more than 2 minutes hospital stay Home medications reviewed, plan of care discussed with the patient patient's w luli Patient is a full code Prognosis is guarded
[2022-05-15 17:25] LABS: Appearance,Urine Clear (Clear); Bilirubin,Urine Negative (Negative); Blood,Urine Negative (Negative); Color,Urine Yellow; Glucose,Urine (UA) Negative (Negative); Ketones,Urine Negative (Negative); Leukocyte Esterase,Urine Negative (Negative); Nitrite,Urine Negative (Negative); Protein,Urine Trace (Negative); Specific Gravity,Urine 1.014 (1.001-1.035); Urobilinogen,Urine <2.0 mg/dL (<2.0)
[2022-05-15] MEDS ORDERED: SACUBITRIL/VALSARTAN 49 MG-51 MG TABLET PO SCH (21:00)
[2022-05-15] MEDS: APIXABAN 5 MG TAB PO SCH (21:21)
[2022-05-15] MEDS: AMIODARONE 450 MG in DEXTROSE 5% IN WATER 250 ML IV SCH ×2 (21:31)
[2022-05-16 07:42] LABS: Basophils # (A) 0.1 k/uL (0-0.2); Basophils % (A) 1 %; Eosinophils # (A) 0.3 k/uL (0-0.7); Eosinophils % (A) 6 %; HCT 40.4 % (39.0-53.0); HGB 13.3 gm/dL (13.0-17.5); Lymphocytes # (A) 1.6 k/uL (1.0-4.8); Lymphocytes % (A) 32 %; MCH 30.5 pg (25.0-35.0); MCV 92.5 fL (80.0-100.0); Mean Platelet Volume 7.3; Monocytes # (A) 0.3 k/uL (0-1.0); Monocytes % (A) 6 %; Neutrophils # (A) 2.7 k/uL (1.3-7.7); Neutrophils % (A) 54 %; Platelet Count 230 k/uL (150-450); RBC 4.37 m/uL (4.30-5.90)
[2022-05-16 08:02] LABS: ALT 67 U/L (4-49); AST 61 U/L (17-59); African American GFR (CKD) >90 (>60 ml/min/1.73 sqM); Albumin 3.9 g/dL (3.5-5.0); Alkaline Phosphatase 46 U/L (38-126); Anion Gap 9 mmol/L; Bilirubin, Delta 0.1 mg/dL (0.0-0.2); Bilirubin,Unconjugated 0.7 mg/dL (0.0-1.1); Blood Urea Nitrogen 17 mg/dL (9-20); Calcium 8.5 mg/dL (8.4-10.2); Carbon Dioxide 23 mmol/L (22-30); Chloride 107 mmol/L (98-107); Glucose 97 mg/dL (74-99); Non-African American GFR(CKD) 86 (>60 ml/min/1.73 sqM); Potassium 4.5 mmol/L (3.5-5.1); Sodium 139 mmol/L (137-145); Total Bilirubin 0.8 mg/dL (0.2-1.3); Total Protein 6.5 g/dL (6.3-8.2)
[2022-05-16] MEDS: METOPROLOL SUCCINATE (ER) 50 MG TAB.ER.24H PO SCH (08:58)
[2022-05-16] MEDS: SPIRONOLACTONE 25 MG TAB PO SCH (08:58)
[2022-05-16] MEDS: APIXABAN 5 MG TAB PO SCH ×2 (08:58→20:05)
[2022-05-16] MEDS ORDERED: METOPROLOL SUCCINATE (ER) 100 MG TAB.ER.24H PO SCH (09:00)
[2022-05-16] MEDS ORDERED: FUROSEMIDE 40 MG TAB PO SCH (09:00)
--- NOTE | 2022-05-16 09:14 | P.NPCON ---
History of Present Illness - Reason for Consult acute renal failure - History of Present Illness Reason for consultation: Acute kidney injury History of present illness: Patient is a 51-year-old male seen in consultation for acute kidney injury. Patient denies any history of kidney disease. Patient's creatinine was 1.47 on admission. It is down to 1.02 today. Patient states he was parked at a parking lot and passed out. He is unsure as to how long he was down for. He was noted to be in tachyarrhythmia and is currently maintained on amiodarone drip. Oral intake has been good. He denies any vomiting or diarrhea. Patient states he was recently diagnosed with cardiac sarcoidosis and follows second with the [facility]. Patient denies any history of kidney stones. His calcium level has been normal. Patient's PET scan done and he was given [place] showed no extracardiac involvement of sarcoid. He denies chest pain but does admit to shortness of breath even with minimal exertion at times. Patient states he was taking indomethacin daily for the last month due to gout. Blood pressure this morning is 112/78. No cough. No fever or chills. Denies family history of renal disease. No history of diabetes. Patient states he was recently started on Entresto about a week ago. Patient states his ejection fraction is 30-35%. Vital signs are stable. General: Awake. No acute distress. HEENT: Head exam is unremarkable. LUNGS: Breath sounds decreased. HEART: Rate and Rhythm are regular. ABDOMEN: , No distention. EXTREMITITES: No edema. Past Medical History Past Medical History: Atrial Fibrillation, Hypertension, Osteoarthritis (OA) Additional Past Medical History / Comment(s): FATTY LIVER., SINUS PROBLEMS, STA [place] BEING TESTED FOR AUTO IMMUNE DISEASE AT [facility] SYMPTOMS OF LOSS OF STRENGTH, FEELS TIRED ELEVATED CK AND LIVER ENZYMES, STATES SHOT FOR HEPATITIS AT 10 YRS OLD ? EXPOSURE., SEE CARDIOLOGY H & P., STATES SOB. GOUT History of Any Multi-Drug Resistant Organisms: None Reported Past Surgical History: Orthopedic Surgery Additional Past Surgical History / Comment(s): RIGHT CARPAL TUNNEL RELEASE, COLONOSCOPY. WISDOM TEETH., MUSCLE BX. Past Anesthesia/Blood Transfusion Reactions: No Reported Reaction Past Psychological History: No Psychological Hx Reported Smoking Status: Former smoker Past Alcohol Use History: Rare Additional Past Alcohol Use History / Comment(s): STARTED SMOKING AT AGE 14, SMOKED SMOKED 1 PPD, QUIT 10/2015 Past Drug Use History: None Reported - Past Family History Father Family Medical History: Cancer Additional Family Medical History / Comment(s): PROSTATE CANCER Mother Family Medical History: Cancer Additional Family Medical History / Comment(s): COLON CANCER X2 Brother(s) Family Medical History: Cancer Additional Family Medical History / Comment(s): SKIN Medications and Allergies Home Medications Medication Instructions Recorded Confirmed Type Multivitamins, Thera [Multivitamin 2 tab PO DAILY 08/28/18 05/15/22 History (formulary)] [place]-3 Fatty Acids/Fish Oil [Fish 1 cap PO HS 08/28/18 05/15/22 History Oil 1,000 mg Softgel] Apixaban [Eliquis] 5 mg PO BID #60 tab 12/25/20 05/15/22 Rx Metoprolol Succinate [Toprol XL] 50 mg PO DAILY 02/12/22 05/15/22 History Furosemide [Lasix] 40 mg PO DAILY #30 tab 02/14/22 05/15/22 Rx Spironolactone [Aldactone] 25 mg PO DAILY #30 tab 02/14/22 05/15/22 Rx Amiodarone [Cordarone] 200 mg PO HS 05/15/22 05/15/22 History Indomethacin [Indocin] 50 mg PO BID PRN 05/15/22 05/15/22 History Metoprolol Succinate [Toprol XL] 100 mg PO DAILY 05/15/22 05/15/22 History Sacubitril/Valsartan [Entresto 49 1 tab PO BID 05/15/22 05/15/22 History mg-51 mg Tablet] Allergies Allergy/AdvReac Type Severity Reaction Status Date / Time No Known Allergies Allergy Verified 05/15/22 14:39 Physical Exam Vitals: Vital Signs Temp Pulse Pulse Resp BP BP Pulse Ox 05/16/22 08:55 97.2 F L 90 16 112/78 97 05/16/22 03:54 61 16 91/56 98 05/15/22 23:35 97.7 F 85 16 94/65 98 05/15/22 20:05 76 18 109/69 05/15/22 20:00 97.4 F L 89 15 112/86 99 05/15/22 19:54 75 18 119/80 05/15/22 17:44 86 18 126/84 99 05/15/22 16:21 88 18 99/70 100 05/15/22 15:13 86 18 112/79 99 05/15/22 14:47 84 18 120/84 99 05/15/22 14:41 85 05/15/22 14:34 98.3 F 85 18 136/107 99 Intake and Output 05/15/22 05/16/22 05/16/22 22:59 06:59 14:59 Other: Voiding Method Toilet Toilet # Voids 1 Weight 121.1 kg 116 kg Results - Lab Results Most recent lab results Calcium 8.5 mg/dL (8.4-10.2) 05/16/22 06:41 Magnesium 2.0 mg/dL (1.6-2.3) 05/15/22 14:45 05/16/22 06:41 05/16/22 06:41 Assessment and Plan Plan: Assessment: 1. Acute kidney injury mostly prerenal secondary to hemodynamic instability. Creatinine was 1.47 on admission and is 1.02 today. UA with trace protein. This will be repeated outpatient. 2. Cardiac sarcoidosis. PET scan revealed no extra cardiac involvement. 3. Syncope due to tachyarrhythmia. Currently on amiodarone drip. Cardiology following. 4. Chronic systolic CHF with ejection fraction of 30-35%. Plan: No changes from nephrology standpoint. No evidence of sarcoid involvement in the kidneys. Follow-up echocardiogram. Check renal ultrasound. Transfer to [facility] being considered. Thank you for the consultation. I will continue to follow the patient with you during his hospital stay.
--- NOTE | 2022-05-16 10:41 | US ---
EXAMINATION TYPE: US kidneys/renal and bladder DATE OF EXAM: 05/16/2022 COMPARISON: NONE CLINICAL HISTORY: devante. EXAM MEASUREMENTS: Right Kidney: 11.9 X 4.9 X 5.1 cm Left Kidney: 12.8 X 6.0 X 6.4 cm Right Kidney: No hydronephrosis or masses seen Left Kidney: Lobular contour, mass versus normal tissue. Bladder: wnl No hydronephrosis or nephrolithiasis. IMPRESSION: Lobulated margin of the left kidney. No hydronephrosis or nephrolithiasis. Given the focal area of lo bulation recommend CT scan to exclude mass.
[2022-05-16 11:13] LABS: Hepatitis B Surface AB- Quant 3.5 mIU/mL; Hepatitis B Surface Antibody Nonreactive (Nonreactive)
--- NOTE | 2022-05-16 11:25 | CA ---
Transthoracic Echo Report Name: Nora Lema Age: 51 Gender: M : 1970 Exam Date: 05/16/2022 08:27 Exam Location: [place] [facility] Ht (in): 60 Wt (lb): 255 Ordering Physician: Ja Willard MD Attending/Referring Phys: Stripe Marker Lynne Mcnally RDCS Procedure CPT: Indications: tachy-arrhythmia Cardiac Hx: Technical Quality: Technically difficult study Contrast 1: Lumason Total Dose (mL): 3 Contrast 2: Total Dose (mL): MEASUREMENTS (Male / Female) Normal Values 2D ECHO LV Diastolic Diameter PLAX 5.9 cm 4.2 - 5.9 / 3.9 - 5.3 cm LV Systolic Diameter PLAX 4.6 cm IVS Diastolic Thickness 1.4 cm 0.6 - 1.0 / 0.6 - 0.9 cm LVPW Diastolic Thickness 1.6 cm 0.6 - 1.0 / 0.6 - 0.9 cm LV Relative Wall Thickness 0.5 RV Internal Dim ED PLAX 3.9 cm LA Systolic Diameter LX 5.0 cm 3.0 - 4.0 / 2.7 - 3.8 cm LA Volume 134.6 cm??? 18 - 58 / 22 - 52 cm??? M-MODE Aortic Root Diameter MM 3.6 cm LA Systolic Diameter MM 5.2 cm LA Ao Ratio MM 1.5 MV E Point Septal Separation 0.7 cm AV Cusp Separation MM 2.1 cm DOPPLER TR Peak Velocity 255.3 cm/s TR Peak Gradient 26.1 mmHg Right Ventricular Systolic Press 29.3 mmHg FINDINGS Left Ventricle Normal Left ventricular size, moderate wall thickness, left ventricular ejection fraction is estimated at _30-35%. Right Ventricle Normal right ventricular size and function. Right ventricular systolic pressure within normal limits. Right Atrium Normal right atrial size. Left Atrium Moderately increased left atrial diameter. Severely increased left atrial volume. Moderately increased left atrial area. Mitral Valve Mitral valve thickened. [id number] mitral regurgitation. Aortic Valve Trileaflet aortic valve. No aortic regurgitation. Tricuspid Valve Structurally normal tricuspid valve. Mild tricuspid regurgitation. Pulmonic Valve Structurally normal pulmonic valve. Trace pulmonic regurgitation. Pericardium Normal pericardium. Aorta Normal size aortic root and proximal ascending aorta. CONCLUSIONS Reduced LV size and systolic function, ejection fraction 35% Dilated left atrium Previewed by: Dr. Nikhil Pérez MD (Electronically Signed) Final Date: 16 May 2022 11:24
[2022-05-16 11:26] LABS: Hepatitis A Ab, Total Nonreactive (Nonreactive); Hepatitis B Surface Antigen Nonreactive (Nonreactive); Hepatitis C IgG Antibody Nonreactive (Nonreactive)
--- NOTE | 2022-05-16 11:39 | P.PN ---
Subjective Admitted with syncope and tachycardia. History of cardiac sarcoidosis Currently doing well. Denies any symptoms overnight. No chest pain no GI c omplaints no respiratory complaints. Objective - Vital Signs Vital signs: Vital Signs Temp 97.2 F L 05/16/22 08:55 Pulse 90 05/16/22 08:55 Resp 16 05/16/22 08:55 BP 112/78 05/16/22 08:55 Pulse Ox 97 05/16/22 08:55 FiO2 Intake & Output 05/15/22 05/16/22 05/16/22 18:59 06:59 18:59 Weight 121.1 kg 116 kg Other: Voiding Method Toilet # Voids 1 - Exam Awake alert oriented 3, no acute distress Head and neck: Anicteric sclera, extraocular movements intact, no facial asymmetry, oropharyngeal mucosa is moist without any lesions, neck is supple without rigidity, no neck masses or neck vein distention Heart: Regular rhythm and rate, S1, S2; no murmurs rubs or gallops Lungs: Breath sounds present bilateral, no wheezing, rhonchi or crackles Abdomen: Bowel sounds present throughout, abdomen is soft, nontender, nondistended, no involuntary guarding, no hernias or organomegaly, no flank tenderness Extremities: No peripheral edema, no cyanosis, warm well perfused with palpable dorsalis pedis pulses bilateral and good capillary refill, without joint swelling or deformities - Labs CBC & Chem 7: 05/16/22 06:41 05/16/22 06:41 Labs: Abnormal Lab Results - Last 24 Hours (Table) 05/15/22 05/15/22 05/15/22 Range/Units 14:45 14:45 16:39 BUN 23 H (9-20) mg/dL Creatinine 1.47 H (0.66-1.25) mg/dL Glucose 190 H (74-99) mg/dL POC Glucose (mg/dL) 204 H (70-110) mg/dL AST 79 H (17-59) U/L ALT 70 H (4-49) U/L Troponin I (0.000-0.034) ng/mL Urine Protein Trace H (Negative) 05/15/22 05/15/22 05/16/22 Range/Units 18:24 20:55 06:41 BUN (9-20) mg/dL Creatinine (0.66-1.25) mg/dL Glucose (74-99) mg/dL POC Glucose (mg/dL) (70-110) mg/dL AST 61 H (17-59) U/L ALT 67 H (4-49) U/L Troponin I 0.053 H* 0.055 H* (0.000-0.034) ng/mL Urine Protein (Negative) Assessment and Plan Assessment: #Syncope Due to tachy arrhythmia, suspected to be paroxysmal A. fib with RVR versus PSVT with underlying left bundle branch block Responded to IV amiodarone, continues on amiodarone drip Echo ordered Gentle hydration Cycle troponin Cardiology consult Keep on telemetry Continue Eliquis Likely will need AICD #Cardiac sarcoidosis High risk of adverse effects, sudden cardiac Cardiology consulted Start on prednisone Check MARCELO level, ESR, CRP Discussed with family and the patient #Acute kidney injury Rule out involvement due to sarcoidosis Obtain nephrology consultation Check UA Renal ultrasound Hold Entresto #Chronic systolic CHF Appears euvolemic Received IV fluids in ER, discontinue now Continue beta raphael We'll hold Entresto due to devante DVT prophylaxis: Eliquis Disposition: Cardiology requested transfer to [facility], transfer process started. Patient agreeable
--- NOTE | 2022-05-16 12:08 | P.CRDCN ---
History of Present Illness Consult date: 05/16/22 History of present illness: HISTORY OF PRESENT ILLNESS: This is a 51-year-old male with a past medical history significant for hypertension, suspected sleep apnea, atrial flutter with previous ablation in December 2020 and suspected cardiac sarcoidosis. Patient follows with a physician at the [facility]. The patient states he is set up to undergo an EP study in the next month. We have been asked to see the patient in consultation for suspected atrial fibrillation. Patient examined at the bedside. Patient states yesterday he was in his car driving in the [employer] lot when he began to feel lightheaded. The next thing he knows he passed out and lost consciousness. He states he woke up and his car and had a little bit of chest discomfort. He states he did not fully regain history and or his consciousness. He called EMS for assistance. When EMS arrived EKG completed revealing wide complex tachycardia suggestive of ventricular tachycardia. The patient was started on amiodarone. The patient denies chest pain or pressure at this time. He denies shortness of breath. Vital signs are stable. * EKG reveals sinus mechanism with right bundle branch block * Chest xray no acute pulmonary process. Mild cardiomegaly. * Laboratory data: WBC 5.0. Hemoglobin 13.3. Platelet count 230. Sodium 139. Potassium 4.5. BUN 17. Creatinine 1.02. Troponin 0.033. 0.053. 0.055. TSH 2.5 x 0. * Current home cardiac medications include Eliquis 5 mg twice a day, Lasix 40 mg daily, metoprolol succinate 150 mg daily, Entresto 49-51mg daily, Aldactone 25 mg daily, and amiodarone 200 mg at night * Echocardiogram completed revealing ejection fraction 30-35%, [id number] mitral regurgitation, mild tricuspid regurgitation * Cardiac catheterization history: November 2020 revealing normal filling pressures, no gradient across AV, right dominant system and no obstructive coronary artery disease REVIEW OF SYSTEMS: At the time of my exam: CONSTITUTIONAL: Denies fever or chills. HEENT: Denies blurred vision, vision changes, or eye pain. Denies hemoptysis CARDIOVASCULAR: Denies chest pain. Denies orthopnea. Denies PND. Denies palpitations RESPIRATORY: Denies shortness of breath. GASTROINTESTINAL: Denies abdominal pain. Denies nausea or vomiting. HEMATOLOGIC: Denies bleeding disorders. GENITOURINARY: Denies any blood in urine. SKIN: Denies pruitis. Denies rash. PHYSICAL EXAM: VITAL SIGNS: Reviewed. GENERAL: Well-developed in no acute distress. HEENT: Head is normocephalic. Pupils are equal, round. Sclerae anicteric. Mucous membranes of the mouth are moist. Neck supple. No JVD or thyromegaly LUNGS: Respirations even and unlabored. Lungs essentially clear to auscultation bilaterally. HEART: Regular rate and rhythm. S1 and S2 heard. ABDOMEN: Soft. Nondistended. Nontender. EXTREMITIES: Normal range of motion. No clubbing or cyanosis. Peripheral pulse s intact. No lower extremity edema NEUROLOGIC: Awake and alert. Oriented x 3. 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 Signing provider agrees with the documented findings, assessment, and plan of care. Past Medical History Past Medical History: Atrial Fibrillation, Hypertension, Osteoarthritis (OA) Additional Past Medical History / Comment(s): FATTY LIVER., SINUS PROBLEMS, STATES BEING TESTED FOR AUTO IMMUNE DISEASE AT [facility] SYMPTOMS OF LOSS OF STRENGTH, FEELS TIRED ELEVATED CK AND LIVER ENZYMES, STATES SHOT FOR HEPATITIS AT 10 YRS OLD ? EXPOSURE., SEE CARDIOLOGY H & P., STATES SOB. GOUT History of Any Multi-Drug Resistant Organisms: None Reported Past Surgical History: Orthopedic Surgery Additional Past Surgical History / Comment(s): RIGHT CARPAL TUNNEL RELEASE, COLONOSCOPY. WISDOM TEETH., MUSCLE BX. Past Anesthesia/Blood Transfusion Reactions: No Reported Reaction Past Psychological History: No Psychological Hx Reported Smoking Status: Former smoker Past Alcohol Use History: Rare Additional Past Alcohol Use History / Comment(s): STARTED SMOKING AT AGE 14, SMOKED SMOKED 1 PPD, QUIT 10/2015 Past Drug Use History: None Reported - Past Family History Father Family Medical History: Cancer Additional Family Medical History / Comment(s): PROSTATE CANCER Mother Family Medical History: Cancer Additional Family Medical History / Comment(s): COLON CANCER X2 Brother(s) Family Medical History: Cancer Additional Family Medical History / Comment(s): SKIN Medications and Allergies Home Medications Medication Instructions Recorded Confirmed Type Multivitamins, Thera [Multivitamin 2 tab PO DAILY 08/28/18 05/15/22 History (formulary)] [place]-3 Fatty Acids/Fish Oil [Fish 1 cap PO HS 08/28/18 05/15/22 History Oil 1,000 mg Softgel] Apixaban [Eliquis] 5 mg PO BID #60 tab 12/25/20 05/15/22 Rx Metoprolol Succinate [Toprol XL] 50 mg PO DAILY 02/12/22 05/15/22 History Furosemide [Lasix] 40 mg PO DAILY #30 tab 02/14/22 05/15/22 Rx Spironolactone [Aldactone] 25 mg PO DAILY #30 tab 02/14/22 05/15/22 Rx Amiodarone [Cordarone] 200 mg PO HS 05/15/22 05/15/22 History Indomethacin [Indocin] 50 mg PO BID PRN 05/15/22 05/15/22 History Metoprolol Succinate [Toprol XL] 100 mg PO DAILY 05/15/22 05/15/22 History Sacubitril/Valsartan [Entresto 49 1 tab PO BID 05/15/22 05/15/22 History mg-51 mg Tablet] Allergies Allergy/AdvReac Type Severity Reaction Status Date / Time No Known Allergies Allergy Verified 05/15/22 14:39 Physical Exam Vitals: Vital Signs Temp Pulse Pulse Resp BP BP Pulse Ox 05/16/22 03:54 61 16 91/56 98 05/15/22 23:35 97.7 F 85 16 94/65 98 05/15/22 20:05 76 18 109/69 05/15/22 20:00 97.4 F L 89 15 112/86 99 05/15/22 19:54 75 18 119/80 05/15/22 17:44 86 18 126/84 99 05/15/22 16:21 88 18 99/70 100 05/15/22 15:13 86 18 112/79 99 05/15/22 14:47 84 18 120/84 99 05/15/22 14:41 85 05/15/22 14:34 98.3 F 85 18 136/107 99 Intake and Output 05/15/22 05/16/22 05/16/22 22:59 06:59 14:59 Other: Voiding Method Toilet Toilet # Voids 1 Weight 121.1 kg 116 kg Results 05/16/22 06:41 05/16/22 06:41 Cardiac Enzymes 05/15/22 05/15/22 05/15/22 Range/Units 14:45 14:45 18:24 AST 79 H (17-59) U/L Troponin I 0.033 0.053 H* (0.000-0.034) ng/mL 05/15/22 05/16/22 Range/Units 20:55 06:41 AST 61 H (17-59) U/L Troponin I 0.055 H* (0.000-0.034) ng/mL Coagulation 05/15/22 Range/Units 14:45 PT 10.7 (9.0-12.0) sec APTT 26.6 (22.0-30.0) sec CBC 05/15/22 05/16/22 Range/Units 14:45 06:41 WBC 6.0 5.0 (3.8-10.6) k/uL RBC 4.50 4.37 (4.30-5.90) m/uL Hgb 13.8 13.3 (13.0-17.5) gm/dL Hct 40.6 40.4 (39.0-53.0) % Plt Count 259 230 (150-450) k/uL Comprehensive Metabolic Panel 05/15/22 05/16/22 Range/Units 14:45 06:41 Sodium 137 139 (137-145) mmol/L Potassium 4.3 4.5 (3.5-5.1) mmol/L Chloride 104 107 (98-107) mmol/L Carbon Dioxide 22 23 (22-30) mmol/L BUN 23 H 17 (9-20) mg/dL Creatinine 1.47 H 1.02 (0.66-1.25) mg/dL Glucose 190 H 97 (74-99) mg/dL Calcium 9.1 8.5 (8.4-10.2) mg/dL Unconjugated Bilirubin 0.7 (0.0-1.1) mg/dL AST 79 H 61 H (17-59) U/L ALT 70 H 67 H (4-49) U/L Alkaline Phosphatase 54 46 (38-126) U/L Total Protein 7.3 6.5 (6.3-8.2) g/dL Albumin 4.5 3.9 (3.5-5.0) g/dL Current Medications Generic Name Dose Route Start Last Admin Trade Name Freq PRN Reason Stop Dose Admin Apixaban 5 mg 05/15/22 21:00 05/15/22 21:21 Apixaban 5 Mg Tab PO 5 mg BID ARIEL Administration Protocol Amiodarone HCl 450 mg/ 250 mls @ 16.667 mls/hr 05/15/22 21:30 05/15/22 21:31 Dextrose/Water IV 05/16/22 15:29 0.5 mg/min .Q15H ARIEL 16.667 mls/hr Administration Protocol 0.5 MG/MIN Metoprolol Succinate 150 mg 05/16/22 09:00 Metoprolol Succinate (Er) 50 Mg Tab.Er.24h PO DAILY ARIEL Naloxone HCl 0.2 mg 05/15/22 16:13 Naloxone 0.4 Mg/Ml 1 Ml Vial IV Q2M PRN Opioid Reversal Spironolactone 25 mg 05/16/22 09:00 Spironolactone 25 Mg Tab PO DAILY ARIEL Intake and Output 05/15/22 05/16/22 05/16/22 22:59 06:59 14:59 Other: Voiding Method Toilet Toilet # Voids 1 Weight 121.1 kg 116 kg 05/16/22 06:41 05/16/22 06:41
[2022-05-16] MEDS: AMIODARONE 450 MG in DEXTROSE 5% IN WATER 250 ML IV SCH ×2 (12:31)
[2022-05-16 16:12] LABS: Amphetamine Screen,Urine Not Detected (NotDetected); Benzodiazepines Screen,Urine Not Detected (NotDetected); Cocaine Screen,Urine Not Detected (NotDetected); Opiate Screen,Urine Not Detected (NotDetected); Phencyclidine Screen,Urine Not Detected (NotDetected); Tricyclic Antidepressant,Urine Not Detected (NotDetected); Urn Cannabinoid Scrn Not Detected (NotDetected)
[2022-05-16 16:13] LABS: Barbiturate Screen,Urine Not Detected (NotDetected); Methadone Screen, Urine Not Detected (NotDetected); Oxycodone Screen, Urine Not Detected (NotDetected)
[2022-05-17] MEDS: AMIODARONE 450 MG in DEXTROSE 5% IN WATER 250 ML IV SCH ×2 (04:08)
[2022-05-17 08:08] LABS: African American GFR (CKD) >90 (>60 ml/min/1.73 sqM); Anion Gap 6 mmol/L; Blood Urea Nitrogen 16 mg/dL (9-20); Calcium 8.8 mg/dL (8.4-10.2); Carbon Dioxide 23 mmol/L (22-30); Chloride 107 mmol/L (98-107); Glucose 107 mg/dL (74-99); Non-African American GFR(CKD) 79 (>60 ml/min/1.73 sqM); Potassium 4.6 mmol/L (3.5-5.1); Sodium 136 mmol/L (137-145)
[2022-05-17 08:10] LABS: Albumin 3.9 g/dL (3.5-5.0); Bilirubin, Delta 0.1 mg/dL (0.0-0.2); Bilirubin,Unconjugated 0.4 mg/dL (0.0-1.1); Total Bilirubin 0.5 mg/dL (0.2-1.3); Total Protein 6.5 g/dL (6.3-8.2)
[2022-05-17] MEDS ORDERED: ACETAMINOPHEN TAB 325 MG TAB PO PRN (09:10)
[2022-05-17] MEDS ORDERED: IBUPROFEN 400 MG TAB PO PRN (09:10)
[2022-05-17] MEDS: APIXABAN 5 MG TAB PO SCH ×2 (09:22→21:06)
[2022-05-17] MEDS: METOPROLOL SUCCINATE (ER) 50 MG TAB.ER.24H PO SCH (09:22)
[2022-05-17] MEDS: SPIRONOLACTONE 25 MG TAB PO SCH (09:22)
--- NOTE | 2022-05-17 09:22 | P.PN ---
Subjective Patient is seen in follow-up for acute kidney injury. Renal function improved from admission. Remains on amiodarone drip. Oral intake here. Good urine output. No vomiting or diarrhea. Vital signs are stable. General: The patient appeared well nourished and normally developed. HEENT: Head exam is unremarkable. LUNGS: Breath sounds decreased. HEART: Rate and Rhythm are regular. ABDOMEN: Soft, no distention. EXTREMITITES: No edema. Objective - Vital Signs Vital signs: Vital Signs Temp 98.6 F 05/17/22 04:00 Pulse 88 05/17/22 04:00 Resp 18 05/17/22 04:00 BP 116/80 05/17/22 04:00 Pulse Ox 97 05/17/22 04:00 FiO2 Intake & Output 05/16/22 05/17/22 05/17/22 18:59 06:59 18:59 Intake Total 1110 250 Output Total 1700 Balance -590 250 Intake: IV 20 Invasive Line 2 20 Intake, IV Titration 250 250 Amount Amiodarone 450 mg In 250 250 Dextrose 5% in Water 250 ml @ 0.5 MG/MIN 16.667 mls/hr IV .Q15H [facility] Rx#: [id number] Oral 840 Output: Urine 1700 Other: Voiding Method Toilet # Voids 2 - Labs CBC & Chem 7: 05/16/22 06:41 05/17/22 06:28 Labs: Abnormal Lab Results - Last 24 Hours (Table) 05/17/22 05/17/22 Range/Units 06:28 06:28 Sodium 136 L (137-145) mmol/L Glucose 107 H (74-99) mg/dL ALT 59 H (4-49) U/L Assessment and Plan Plan: Assessment: 1. Acute kidney injury mostly prerenal secondary to hemodynamic instability. Creatinine was 1.47 on admission and is stable at 1.09 today. UA with trace protein. This will be repeated outpatient. 2. Cardiac sarcoidosis. PET scan revealed no extra cardiac involvement. 3. Syncope due to tachyarrhythmia. Currently on amiodarone drip. Cardiology following. 4. Chronic systolic CHF with ejection fraction of 30-35% with mild to moderate mitral regurgitation. 5. Lobulated contour of the left kidney. No hydronephrosis. Plan: No evidence of sarcoid involvement in the kidneys. Consult urology due to the lobulated contour and to rule out mass. Transfer to [facility] being considered.
[2022-05-17] MEDS: AMIODARONE 200 MG TAB PO SCH ×2 (10:59→21:06)
[2022-05-17] MEDS: MEXILETINE 150 MG CAP PO SCH ×2 (11:00→21:06)
--- NOTE | 2022-05-17 11:28 | P.PN ---
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 Patient follows with a physician at the [facility]. The patient states he is set up to undergo an EP study in the next month. We have been asked to see the patient in consultation for suspected atrial fibrillation. Patient examined at the bedside. Patient states yesterday he was in his car driving in the [employer] lot when he began to feel lightheaded. The next thing he knows he passed out and lost consciousness. He states he woke up and his car and had a little bit of chest discomfort. He states he did not fully regain history and or his consciousness. He called EMS for assistance. When EMS arrived EKG completed revealing wide complex tachycardia suggestive of ventricular tachycardia. The patient was started on amiodarone. The patient denies chest pain or pressure at this time. He denies shortness of breath. Vital signs are stable. * EKG reveals sinus mechanism with right bundle branch block * Chest xray no acute pulmonary process. Mild cardiomegaly. * Laboratory data: WBC 5.0. Hemoglobin 13.3. Platelet count 230. Sodium 139. Potassium 4.5. BUN 17. Creatinine 1.02. Troponin 0.033. 0.053. 0.055. TSH 2.5 x 0. * Current home cardiac medications include Eliquis 5 mg twice a day, Lasix 40 mg daily, metoprolol succinate 150 mg daily, Entresto 49-51mg daily, Aldactone 25 mg daily, and amiodarone 200 mg at night * Echocardiogram completed revealing ejection fraction 30-35%, [id number] mitral regurgitation, mild tricuspid regurgitation * Cardiac catheterization history: November 2020 revealing normal filling pressures, no gradient across AV, right dominant system and no obstructive coronary artery disease 05/17/2022 Patient examined this morning at the bedside. Patient denies chest pain or pressure. He denies shortness of breath. Telemetry reveals sinus mechanism. Vital signs stable. Blood pressure 106/68. PHYSICAL EXAM: VITAL SIGNS: Reviewed. GENERAL: Well-developed in no acute distress. HEENT: Head is normocephalic. Pupils are equal, round. Sclerae anicteric. Mucous membranes of the mouth are moist. Neck supple. No JVD or thyromegaly LUNGS: Respirations even and unlabored. Lungs essentially clear to auscultation bilaterally. HEART: Regular rate and rhythm. S1 and S2 heard. ABDOMEN: Soft. Nondistended. Nontender. EXTREMITIES: Normal range of motion. No clubbing or cyanosis. Peripheral pulses intact. No lower extremity edema NEUROLOGIC: Awake and alert. Oriented x 3. ASSESSMENT: Ventricular tachycardia Syncope Cardiac sarcoidosis History of atrial flutter with previous ablation Nonischemic cardiomyopathy Chronic congestive heart failure with reduced ejection fraction, EF 3035% Hypertension Suspected sleep apnea PLAN: Discontinue IV amiodarone Begin oral amiodarone 400 mg twice a day Begin mexiletine 150 mg every 12 hours Hold Lasix and Entresto due to NGUYEN on admission Patient has been accepted at the [facility]. Await bed. Further recommendations pending patient course Nurse practitioner note has been reviewed by physician. Signing provider agrees with the documented findings, assessment, and plan of care. Objective - Vital Signs Vital signs: Vital Signs Temp 97.8 F 05/17/22 08:00 Pulse 89 05/17/22 08:00 Resp 15 05/17/22 08:00 BP 106/68 05/17/22 08:00 Pulse Ox 97 05/17/22 08:00 FiO2 Intake & Output 05/16/22 05/17/22 05/17/22 18:59 06:59 18:59 Intake Total 1110 250 360 Output Total 1700 0 Balance -590 250 360 Intake: IV 20 Invasive Line 2 20 Intake, IV Titration 250 250 Amount Amiodarone 450 mg In 250 250 Dextrose 5% in Water 250 ml @ 0.5 MG/MIN 16.667 mls/hr IV .Q15H ARIEL Rx#: [id number] Oral 840 360 Output: Urine 1700 0 Stool 0 Urine/Stool Mix 0 Other: Voiding Method Toilet # Voids 2 0 # Bowel Movements 0 - Labs CBC & Chem 7: 05/16/22 06:41 05/17/22 06:28 Labs: Abnormal Lab Results - Last 24 Hours (Table) 05/17/22 05/17/22 Range/Units 06:28 06:28 Sodium 136 L (137-145) mmol/L Glucose 107 H (74-99) mg/dL ALT 59 H (4-49) U/L
--- NOTE | 2022-05-17 20:17 | P.PN ---
Subjective Progress Note Date: 05/17/22 (delayed charting seen at 0915) Patient is a 51-year-old male with known systolic congestive heart failure, A. fib, hypertension who presented to the ER for evaluation of syncope. He had a syncopal episode at home. Upon arrival from EMS he was tachycardic up to 200. It was a wide complex tachycardia. He was started on IV amiodarone and converted to normal sinus rhythm. He was admitted for further monitoring. He obtain results of his FDG PET fro [facility] and it appears that he has cardiac sarcoidosis. He was seen by cardiology who feels he should be evaluated at [facility]. He was accepted to [facility] on 05/16/22 but no bed was available. Patient seen and examined at bedside. He denies any chest pain, shortness breath, nausea, vomiting. We talked about his indication for transfer. General: nontoxic, no distress, appears at stated age Derm: warm, dry Head: atraumatic, normocephalic, symmetric Eyes: EOMI, no lid lag, anicteric sclera Mouth: no lip lesion, mucus membranes moist Cardiovascular: S1S2 reg, no murmur, positive posterior tibial pulse bilateral, Lungs: CTA bilateral, no rhonchi, no rales , no accessory muscle use Abdominal: soft, nontender to palpation, no guarding, no appreciable organomegaly Ext: no gross muscle atrophy, no edema, no contractures Neuro: CN II-XI grossly intact, no focal neuro deficits Psych: Alert, oriented, appropriate affect Assessment/plan: Syncope due to ventricular tachycardia Cadiac sarcoidosis Hx A flutter with ablation Nonischaemic cardiomyopathy with EF 30-35% HTN - cardio recs - Transitioned to oral Amio, started on mexiletine - metoprolol, spironolactone - Laix and entresto held due to NGUYEN on admission - awaiting bed at of - strict I and O, daily weights - Tele - Eliquis Lobulated Left Kidney - urology consult TIFFANY NGUYEN, resolved [facility] Objective - Vital Signs Vital signs: Vital Signs Temp 97.4 F L 05/17/22 16:00 Pulse 88 05/17/22 16:00 Resp 16 05/17/22 16:00 BP 121/83 05/17/22 16:00 Pulse Ox 98 05/17/22 16:00 FiO2 Intake & Output 05/17/22 05/17/22 05/18/22 06:59 18:59 06:59 Intake Total 250 840 Output Total 0 Balance 250 840 Intake: Intake, IV Titration 250 Amount Amiodarone 450 mg In 250 Dextrose 5% in Water 250 ml @ 0.5 MG/MIN 16.667 mls/hr IV .Q15H [facility] Rx#: [id number] Oral 840 Output: Urine 0 Stool 0 Urine/Stool Mix 0 Other: Voiding Method Toilet # Voids 2 2 # Bowel Movements 0 - Labs CBC & Chem 7: 05/16/22 06:41 05/17/22 06:28 Labs: Abnormal Lab Results - Last 24 Hours (Table) 05/17/22 05/17/22 Range/Units 06:28 06:28 Sodium 136 L (137-145) mmol/L Glucose 107 H (74-99) mg/dL ALT 59 H (4-49) U/L
--- NOTE | 2022-05-18 06:38 | P.GSCN ---
History of Present Illness Consult date: 05/17/22 Reason for Consult: Irregular renal contour Requesting physician: Louie Bennett History of present illness: The patient is a 51-year-old white male admitted for evaluation of syncope. He has a history of congestive heart failure and paroxysmal atrial fibrillation. His ejection fraction is 30-40%. His history is also significant for cardiac sarcoidosis. His serum creatinine level was elevated at the time of admission, so a renal ultrasound was obtained which showed a lobulated contour of the left kidney. He has had no prior renal imaging, though the kidney could be seen on an unenhanced CT scan of the chest in December 2020 revealing questionable thickening of the left renal cortex. He denies dysuria, hematuria, and flank pain. His urologic history is unremarkable. His father has prostate cancer. He states that his PSA levels are normal. Review of Systems - Constitutional Denies chills, Denies fever - Gastrointestinal Denies nausea, Denies vomiting - Genitourinary Reports erectile dysfunction Past Medical History Past Medical History: Atrial Fibrillation, Hypertension, Osteoarthritis (OA) Additional Past Medical History / Comment(s): FATTY LIVER., SINUS PROBLEMS, STATES BEING TESTED FOR AUTO IMMUNE DISEASE AT [facility] SYMPTOMS OF LOSS OF STRENGTH, FEELS TIRED ELEVATED CK AND LIVER ENZYMES, STATES SHOT FOR HEPATITIS AT 10 YRS OLD ? EXPOSURE., SEE CARDIOLOGY H & P., STATES SOB. GOUT History of Any Multi-Drug Resistant Organisms: None Reported Past Surgical History: Orthopedic Surgery Additional Past Surgical History / Comment(s): RIGHT CARPAL TUNNEL RELEASE, COLONOSCOPY. WISDOM TEETH., MUSCLE BX. Past Anesthesia/Blood Transfusion Reactions: No Reported Reaction Past Psychological History: No Psychological Hx Reported Smoking Status: Former smoker Past Alcohol Use History: Rare Additional Past Alcohol Use History / Comment(s): STARTED SMOKING AT AGE 14, SMOKED SMOKED 1 PPD, QUIT 10/2015 Past Drug Use History: None Reported - Past Family History Father Family Medical History: Cancer Additional Family Medical History / Comment(s): PROSTATE CANCER Mother Family Medical History: Cancer Additional Family Medical History / Comment(s): COLON CANCER X2 Brother(s) Family Medical History: Cancer Additional Family Medical History / Comment(s): SKIN Medications and Allergies Home Medications Medication Instructions Recorded Confirmed Type Multivitamins, Thera [Multivitamin 2 tab PO DAILY 08/28/18 05/15/22 History (formulary)] [place]-3 Fatty Acids/Fish Oil [Fish 1 cap PO HS 08/28/18 05/15/22 History Oil 1,000 mg Softgel] Apixaban [Eliquis] 5 mg PO BID #60 tab 12/25/20 05/15/22 Rx Metoprolol Succinate [Toprol XL] 50 mg PO DAILY 02/12/22 05/15/22 History Furosemide [Lasix] 40 mg PO DAILY #30 tab 02/14/22 05/15/22 Rx Spironolactone [Aldactone] 25 mg PO DAILY #30 tab 02/14/22 05/15/22 Rx Amiodarone [Cordarone] 200 mg PO HS 05/15/22 05/15/22 History Indomethacin [Indocin] 50 mg PO BID PRN 05/15/22 05/15/22 History Metoprolol Succinate [Toprol XL] 100 mg PO DAILY 05/15/22 05/15/22 History Sacubitril/Valsartan [Entresto 49 1 tab PO BID 05/15/22 05/15/22 History mg-51 mg Tablet] Allergies Allergy/AdvReac Type Severity Reaction Status Date / Time No Known Allergies Allergy Verified 05/15/22 14:39 Surgical - Exam Vital Signs Temp Pulse Resp BP Pulse Ox 98.3 F 85 18 136/107 99 05/15/22 14:34 05/15/22 14:34 05/15/22 14:34 05/15/22 14:34 05/15/22 14:34 - General well developed, well nourished, no distress - Respiratory normal respiratory effort - Abdomen Abdomen: soft, non tender, no guarding, no rigid, no rebound - Genitourinary normal penis with no external lesions, testicles non-tender - Rectum Rectum: normal sphincter tone, no masses, other (Prostate 20-30 g, smooth) - Psychiatric oriented to time, oriented to person, oriented to place, speech is normal, memory intact Results - Labs 05/16/22 06:41 05/17/22 06:28 Abnormal Lab Results - Last 24 Hours (Table) 05/17/22 05/17/22 Range/Units 06:28 06:28 Sodium 136 L (137-145) mmol/L Glucose 107 H (74-99) mg/dL ALT 59 H (4-49) U/L Diabetes panel 05/17/22 05/17/22 Range/Units 06:28 06:28 Sodium 136 L (137-145) mmol/L Potassium 4.6 (3.5-5.1) mmol/L Chloride 107 (98-107) mmol/L Carbon Dioxide 23 (22-30) mmol/L BUN 16 (9-20) mg/dL Creatinine 1.09 (0.66-1.25) mg/dL Glucose 107 H (74-99) mg/dL Calcium 8.8 (8.4-10.2) mg/dL AST 50 (17-59) U/L ALT 59 H (4-49) U/L Alkaline Phosphatase 44 (38-126) U/L Total Protein 6.5 (6.3-8.2) g/dL Albumin 3.9 (3.5-5.0) g/dL Calcium panel 05/17/22 05/17/22 Range/Units 06:28 06:28 Calcium 8.8 (8.4-10.2) mg/dL Albumin 3.9 (3.5-5.0) g/dL Pituitary panel 05/17/22 Range/Units 06:28 Sodium 136 L (137-145) mmol/L Potassium 4.6 (3.5-5.1) mmol/L Chloride 107 (98-107) mmol/L Carbon Dioxide 23 (22-30) mmol/L BUN 16 (9-20) mg/dL Creatinine 1.09 (0.66-1.25) mg/dL Glucose 107 H (74-99) mg/dL Calcium 8.8 (8.4-10.2) mg/dL Adrenal panel 05/17/22 05/17/22 Range/Units 06:28 06:28 Sodium 136 L (137-145) mmol/L Potassium 4.6 (3.5-5.1) mmol/L Chloride 107 (98-107) mmol/L Carbon Dioxide 23 (22-30) mmol/L BUN 16 (9-20) mg/dL Creatinine 1.09 (0.66-1.25) mg/dL Glucose 107 H (74-99) mg/dL Calcium 8.8 (8.4-10.2) mg/dL Total Bilirubin 0.5 (0.2-1.3) mg/dL AST 50 (17-59) U/L ALT 59 H (4-49) U/L Alkaline Phosphatase 44 (38-126) U/L Total Protein 6.5 (6.3-8.2) g/dL Albumin 3.9 (3.5-5.0) g/dL - Imaging US - kidney/bladder: report reviewed, image reviewed Assessment and Plan (1) Neoplasm of uncertain behavior of left kidney Current Visit: Yes Status: Acute Code(s): D41.02 - NEOPLASM OF UNCERTAIN BEHAVIOR OF LEFT KIDNEY SNOMED Code(s): 612390695384980 Plan: I had a lengthy discussion with and Mrs. Lema. I explained that the imaging suggests the possibility of a left renal mass. A CT scan without and with IV contrast is the ideal study for clarification. He is likely being transferred to [facility] and I suggested that imaging should be done there in the event that they intend to do imaging of their own. I discussed the importance of continued prostate cancer screening, and the fact that his PSA level should be below 2.5 at his age. Lastly, we discussed his erectile dysfunction and I explained that sildenafil or tadalafil would be first line therapy. Given his cardiac status, I suggested he discuss this with the ca rdiologist at [facility]. Please notify me if I can be of any further assistance. Time with Patient: Greater than 30
[2022-05-18] MEDS: AMIODARONE 200 MG TAB PO SCH ×2 (08:44→20:07)
[2022-05-18] MEDS: MEXILETINE 150 MG CAP PO SCH ×2 (08:44→20:07)
[2022-05-18] MEDS: APIXABAN 5 MG TAB PO SCH ×2 (08:44→20:07)
[2022-05-18] MEDS: METOPROLOL SUCCINATE (ER) 50 MG TAB.ER.24H PO SCH (08:44)
[2022-05-18] MEDS: SPIRONOLACTONE 25 MG TAB PO SCH (08:44)
--- NOTE | 2022-05-18 09:39 | P.PN ---
Subjective Patient is seen in follow-up for acute kidney injury. Renal function improved from admission. Now on oral amiodarone. Oral intake is good. Good urine output. No vomiting or diarrhea. Hemodynamically stable. Vital signs are stable. General: Awake and alert. HEENT: Head exam is unremarkable. LUNGS: Breath sounds decreased. HEART: Rate and Rhythm are regular. ABDOMEN: Soft, no distention. EXTREMITITES: No edema. Objective - Vital Signs Vital signs: Vital Signs Temp 97.3 F L 05/18/22 08:31 Pulse 91 05/18/22 08:31 Resp 16 05/18/22 08:31 BP 127/80 05/18/22 08:31 Pulse Ox 95 05/18/22 08:31 FiO2 Intake & Output 05/17/22 05/18/22 05/18/22 18:59 06:59 18:59 Intake Total 840 540 360 Output Total 0 0 300 Balance 840 540 60 Intake: Oral 840 540 360 Output: Urine 0 300 Stool 0 0 Urine/Stool Mix 0 Other: Voiding Method Toilet # Voids 2 1 # Bowel Movements 0 1 - Labs CBC & Chem 7: 05/16/22 06:41 05/17/22 06:28 Assessment and Plan Plan: Assessment: 1. Acute kidney injury mostly prerenal secondary to hemodynamic instability. Creatinine was 1.47 on admission and stable at 1.09 yesterday. UA with trace protein. This will be repeated outpatient. 2. Cardiac sarcoidosis. PET scan revealed no extra cardiac involvement. MARCELO 35. TSH wnl. 3. Syncope due to tachyarrhythmia. Currently on po amiodarone. Cardiology following. 4. Chronic systolic CHF with ejection fraction of 30-35% with mild to moderate mitral regurgitation. 5. Lobulated contour of the left kidney. ?mass. No hydronephrosis. Urology following. Plan: No evidence of sarcoid involvement in the kidneys. Transfer to [facility] being considered.
[2022-05-18 10:44] LABS: Bilirubin, Delta 0.1 mg/dL (0.0-0.2); Bilirubin,Unconjugated 0.7 mg/dL (0.0-1.1); Total Bilirubin 0.8 mg/dL (0.2-1.3); Total Protein 6.6 g/dL (6.3-8.2)
--- NOTE | 2022-05-18 12:42 | P.PN ---
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 Patient follows with a physician at the [facility]. The patient states he is set up to undergo an EP study in the next month. We have been asked to see the patient in consultation for suspected atrial fibrillation. Patient examined at the bedside. Patient states yesterday he was in his car driving in the [employer] lot when he began to feel lightheaded. The next thing he knows he passed out and lost consciousness. He states he woke up and his car and had a little bit of chest discomfort. He states he did not fully regain history and or his consciousness. He called EMS for assistance. When EMS arrived EKG completed revealing wide complex tachycardia suggestive of ventricular tachycardia. The patient was started on amiodarone. The patient denies chest pain or pressure at this time. He denies shortness of breath. Vital signs are stable. * EKG reveals sinus mechanism with right bundle branch block * Chest xray no acute pulmonary process. Mild cardiomegaly. * Laboratory data: WBC 5.0. Hemoglobin 13.3. Platelet count 230. Sodium 139. Potassium 4.5. BUN 17. Creatinine 1.02. Troponin 0.033. 0.053. 0.055. TSH 2.5 x 0. * Current home cardiac medications include Eliquis 5 mg twice a day, Lasix 40 mg daily, metoprolol succinate 150 mg daily, Entresto 49-51mg daily, Aldactone 25 mg daily, and amiodarone 200 mg at night * Echocardiogram completed revealing ejection fraction 30-35%, [id number] mitral regurgitation, mild tricuspid regurgitation * Cardiac catheterization history: November 2020 revealing normal filling pressures, no gradient across AV, right dominant system and no obstructive coronary artery disease 05/17/2022 Patient examined this morning at the bedside. Patient denies chest pain or pressure. He denies shortness of breath. Telemetry reveals sinus mechanism. Vital signs stable. Blood pressure 106/68. 05/18/2022 Patient examined this might the bedside. Patient denies chest pain or pressure. He denies shortness of breath. Telemetry reveals sinus mechanism. No further episodes of ventricular tachycardia. Vital signs are stable. PHYSICAL EXAM: VITAL SIGNS: Reviewed. GENERAL: Well-developed in no acute distress. HEENT: Head is normocephalic. Pupils are equal, round. Sclerae anicteric. Mucous membranes of the mouth are moist. Neck supple. No JVD or thyromegaly LUNGS: Respirations even and unlabored. Lungs essentially clear to auscultation bilaterally. HEART: Regular rate and rhythm. S1 and S2 heard. ABDOMEN: Soft. Nondistended. Nontender. EXTREMITIES: Normal range of motion. No clubbing or cyanosis. Peripheral pulses intact. No lower extremity edema NEUROLOGIC: Awake and alert. Oriented x 3. ASSESSMENT: Ventricular tachycardia Syncope Cardiac sarcoidosis History of atrial flutter with previous ablation Nonischemic cardiomyopathy Chronic congestive heart failure with reduced ejection fraction, EF 3035% Hypertension Suspected sleep apnea PLAN: Continue current cardiac medications Hold Lasix and Entresto due to NGUYEN on admission. Possibly resume tomorrow Patient has been accepted at the [facility]. Await bed. Further recommendations pending patient course Nurse practitioner note has been reviewed by physician. Signing provider agrees with the documented findings, assessment, and plan of care. Objective - Vital Signs Vital signs: Vital Signs Temp 97.1 F L 05/18/22 11:35 Pulse 88 05/18/22 11:35 Resp 16 05/18/22 11:35 BP 126/61 05/18/22 11:35 Pulse Ox 95 05/18/22 11:35 FiO2 Intake & Output 05/17/22 05/18/22 05/18/22 18:59 06:59 18:59 Intake Total 840 540 360 Output Total 0 0 300 Balance 840 540 60 Intake: Oral 840 540 360 Output: Urine 0 300 Stool 0 0 Urine/Stool Mix 0 Other: Voiding Method Toilet # Voids 2 1 # Bowel Movements 0 1 - Labs CBC & Chem 7: 05/16/22 06:41 05/17/22 06:28 Labs: Abnormal Lab Results - Last 24 Hours (Table) 05/18/22 Range/Units 09:42 ALT 50 H (4-49) U/L
--- NOTE | 2022-05-18 17:25 | P.PN ---
Subjective Progress Note Date: 05/18/22 (delayed charting seen at 0910) Patient is a 51-year-old male with known systolic congestive heart failure, A. fib, hypertension who presented to the ER for evaluation of syncope. He had a syncopal episode at home. Upon arrival from EMS he was tachycardic up to 200. It was a wide complex tachycardia. He was started on IV amiodarone and converted to normal sinus rhythm. He was admitted for further monitoring. He obtain results of his FDG PET fro [facility] and it appears that he has cardiac sarcoidosis. He was seen by cardiology who feels he should be evaluated at [facility]. He was accepted to [facility] on 05/16/22 but no bed was available. Renal US showed lobulated left kidney and urology recommended further eval within the [facility] system. Patient seen and examined at bedside. Doing well, feeling anxious, no chest pain, no nausea. General: nontoxic, no distress, appears at stated age Derm: warm, dry Head: atraumatic, normocephalic, symmetric Eyes: EOMI, no lid lag, anicteric sclera Mouth: no lip lesion, mucus membranes moist Cardiovascular: S1S2 reg, no murmur, positive posterior tibial pulse bilateral, Lungs: CTA bilateral, no rhonchi, no rales , no accessory muscle use Abdominal: soft, nontender to palpation, no guarding, no appreciable organomegaly Ext: no gross muscle atrophy, no edema, no contractures Neuro: CN II-XI grossly intact, no focal neuro deficits Psych: Alert, oriented, appropriate affect Assessment/plan: Syncope due to ventricular tachycardia Cadiac sarcoidosis Hx A flutter with ablation Nonischaemic cardiomyopathy with EF 30-35% HTN - cardio recs - Amio and mexiletine - metoprolol, spironolactone - Laix and entresto held due to NGUYEN on admission - awaiting bed at [facility] - strict I and O, daily weights - Tele - Eliquis Lobulated Left Kidney - urology consulted and recommends work-up at [facility]. TIFFANY NGUYEN, resolved Awating bed at [facility] Active Medications Generic Name Dose Route Start Last Admin Trade Name Freq PRN Reason Stop Dose Admin Acetaminophen 650 mg 05/17/22 09:10 Acetaminophen Tab 325 Mg Tab PO Q6HR PRN Fever and/ or Pain Amiodarone HCl 400 mg 06/22/22 09:45 05/18/22 08:44 Amiodarone 200 Mg Tab PO 400 mg BID ARIEL Administration Apixaban 5 mg 05/15/22 21:00 05/18/22 08:44 Apixaban 5 Mg Tab PO 5 mg BID ARIEL Administration Protocol Ibuprofen 400 mg 05/17/22 09:10 Ibuprofen 400 Mg Tab PO Q6HR PRN Pain Metoprolol Succinate 150 mg 05/16/22 09:00 05/18/22 08:44 Metoprolol Succinate (Er) 50 Mg Tab.Er.24h PO 150 mg DAILY ARIEL Administration Mexiletine HCl 150 mg 05/17/22 09:45 05/18/22 08:44 Mexiletine 150 Mg Cap PO 150 mg Q12HR ARIEL Administration Naloxone HCl 0.2 mg 05/15/22 16:13 Naloxone 0.4 Mg/Ml 1 Ml Vial IV Q2M PRN Opioid Reversal Spironolactone 25 mg 05/16/22 09:00 05/18/22 08:44 Spironolactone 25 Mg Tab PO 25 mg DAILY ARIEL Administration Objective - Vital Signs Vital signs: Vital Signs Temp 97.5 F L 05/18/22 15:35 Pulse 81 05/18/22 15:35 Resp 14 05/18/22 15:35 BP 125/73 05/18/22 15:35 Pulse Ox 97 05/18/22 15:35 FiO2 Intake & Output 05/17/22 05/18/22 05/18/22 18:59 06:59 18:59 Intake Total 840 540 900 Output Total 0 0 300 Balance 840 540 600 Intake: Oral 840 540 900 Output: Urine 0 300 Stool 0 0 Urine/Stool Mix 0 Other: Voiding Method Toilet Toilet # Voids 2 1 # Bowel Movements 0 1 - Labs CBC & Chem 7: 05/16/22 06:41 05/17/22 06:28 Labs: Abnormal Lab Results - Last 24 Hours (Table) 05/18/22 Range/Units 09:42 ALT 50 H (4-49) U/L
--- NOTE | 2022-05-19 08:35 | P.PN ---
Subjective Patient is seen in follow-up for acute kidney injury. Renal function improved from admission. Now on oral amiodarone and metoprolol. Oral intake is good. Good urine output. No vomiting or diarrhea. Hemodynamically stable. Vital signs are stable. General: Awake and alert. HEENT: Head exam is unremarkable. LUNGS: Breath sounds decreased. HEART: Rate and Rhythm are regular. ABDOMEN: Soft, no distention. EXTREMITITES: No edema. Objective - Vital Signs Vital signs: Vital Signs Temp 97.9 F 05/19/22 04:00 Pulse 80 05/19/22 04:00 Resp 18 05/19/22 04:00 BP 109/68 05/19/22 04:00 Pulse Ox 96 05/19/22 04:00 FiO2 Intake & Output 05/18/22 05/19/22 05/19/22 18:59 06:59 18:59 Intake Total 900 Output Total 300 0 Balance 600 0 Intake: Oral 900 Output: Urine 300 Stool 0 Other: Voiding Method Toilet Toilet # Voids 5 1 # Bowel Movements 1 - Labs CBC & Chem 7: 05/16/22 06:41 05/17/22 06:28 Labs: Abnormal Lab Results - Last 24 Hours (Table) 05/18/22 Range/Units 09:42 ALT 50 H (4-49) U/L Assessment and Plan Plan: Assessment: 1. Acute kidney injury mostly prerenal secondary to hemodynamic instability. Creatinine was 1.47 on admission - 1.09 on 05/17/22. UA with trace protein. This will be repeated outpatient. 2. Cardiac sarcoidosis. PET scan revealed no extra cardiac involvement. MARCELO 35. TSH wnl. Calcium level normal. No evidence of nephrolithiasis. 3. Syncope due to tachyarrhythmia. Currently on po amiodarone and metoprolol. Cardiology following. 4. Chronic systolic CHF with ejection fraction of 30-35% with mild to moderate mitral regurgitation. 5. Lobulated contour of the left kidney. ?mass. No hydronephrosis. Urology f katty. Plan: No evidence of sarcoid involvement in the kidneys. Transfer to [facility] being considered.
[2022-05-19] MEDS: METOPROLOL SUCCINATE (ER) 50 MG TAB.ER.24H PO SCH (09:06)
[2022-05-19] MEDS: SPIRONOLACTONE 25 MG TAB PO SCH (09:06)
[2022-05-19] MEDS: MEXILETINE 150 MG CAP PO SCH ×2 (09:06→19:38)
[2022-05-19] MEDS: AMIODARONE 200 MG TAB PO SCH ×2 (09:06→19:38)
[2022-05-19] MEDS: APIXABAN 5 MG TAB PO SCH ×2 (09:07→19:38)
[2022-05-19] MEDS ORDERED: METOPROLOL SUCCINATE (ER) 50 MG TAB.ER.24H PO STA (09:20)
[2022-05-19 10:26] LABS: HCT 39.6 % (39.0-53.0); HGB 13.4 gm/dL (13.0-17.5); MCH 30.8 pg (25.0-35.0); MCHC 33.9 g/dL (31.0-37.0); MCV 90.9 fL (80.0-100.0); Platelet Count 263 k/uL (150-450); RBC 4.36 m/uL (4.30-5.90); RDW 14.3 % (11.5-15.5); WBC 5.8 k/uL (3.8-10.6)
[2022-05-19 10:44] LABS: Calcium 9.1 mg/dL (8.4-10.2); Potassium 4.6 mmol/L (3.5-5.1)
--- NOTE | 2022-05-19 13:49 | P.PN ---
Subjective Progress Note Date: 05/19/22 HISTORY OF PRESENT ILLNESS: This is a 51-year-old male with a past medical history significant for hypertension, suspected sleep apnea, atrial flutter with previous ablation in December 2020 and suspected cardiac sarcoidosis. Patient follows with a physician at the [facility]. The patient states he is set up to undergo an EP study in the next month. We have been asked to see the patient in consultation for suspected atrial fibrillation. Patient examined at the bedside. Patient states yesterday he was in his car driving [place] [employer] [place] when he began to feel lightheaded. The next thing he knows he passed out and lost consciousness. He states he woke up and his car and had a little bit of chest discomfort. He states he did not fully regain history and or his consciousness. He called EMS for assistance. When EMS arrived EKG completed revealing wide complex tachycardia suggestive of ventricular tachycardia. The patient was started on amiodarone. The patient denies chest pain or pressure at this time. He denies shortness of breath. Vital signs are stable. * EKG reveals sinus mechanism with right bundle branch block * Chest xray no acute pulmonary process. Mild cardiomegaly. * Laboratory data: WBC 5.0. Hemoglobin 13.3. Platelet count 230. Sodium 139. Potassium 4.5. BUN 17. Creatinine 1.02. Troponin 0.033. 0.053. 0.055. TSH 2.5 x 0. * Current home cardiac medications include Eliquis 5 mg twice a day, Lasix 40 mg daily, metoprolol succinate 150 mg daily, Entresto 49-51mg daily, Aldactone 25 mg daily, and amiodarone 200 mg at night * Echocardiogram completed revealing ejection fraction 30-35%, [id number] mitral regurgitation, mild tricuspid regurgitation * Cardiac catheterization history: November 2020 revealing normal filling pressures, no gradient across AV, right dominant system and no obstructive coronary artery disease 05/17/2022 Patient examined this morning at the bedside. Patient denies chest pain or pressure. He denies shortness of breath. Telemetry reveals sinus mechanism. Vital signs stable. Blood pressure 106/68. 05/18/2022 Patient examined this might the bedside. Patient denies chest pain or pressure. He denies shortness of breath. Telemetry reveals sinus mechanism. No further episodes of ventricular tachycardia. Vital signs are stable. 05/19/2022 Patient examined this morning at the bedside. Patient denies chest pain or pressure. He denies shortness of breath. Telemetry reveals sinus mechanism with no further episodes of ventricular tachycardia. Vital signs are stable. PHYSICAL EXAM: VITAL SIGNS: Reviewed. GENERAL: Well-developed in no acute distress. HEENT: Head is normocephalic. Pupils are equal, round. Sclerae anicteric. Mucous membranes of the mouth are moist. Neck supple. No JVD or thyromegaly LUNGS: Respirations even and unlabored. Lungs essentially clear to auscultation bilaterally. HEART: Regular rate and rhythm. S1 and S2 heard. ABDOMEN: Soft. Nondistended. Nontender. EXTREMITIES: Normal range of motion. No clubbing or cyanosis. Peripheral pulses intact. No lower extremity edema NEUROLOGIC: Awake and alert. Oriented x 3. ASSESSMENT: Ventricular tachycardia Syncope Cardiac sarcoidosis History of atrial flutter with previous ablation Nonischemic cardiomyopathy Chronic congestive heart failure with reduced ejection fraction, EF 3035% Hypertension Suspected sleep apnea PLAN: Continue current cardiac medications Increase metoprolol succinate 200 mg daily Patient has been accepted at [facility]. He is still awaiting a bed. Discussed options with patient regarding a local EP consult, continuing to wait for a better [facility], or discharge home this afternoon with a LifeVest. Patient states he would like to wait until this afternoon to see if a bed is available at [facility]. However if a bed is not available at [facility] this afternoon the patient would like to be discharged home with a LifeVest. Nurse practitioner note has been reviewed by physician. Signing provider agrees with the documented findings, assessment, and plan of care. Objective - Vital Signs Vital signs: Vital Signs Temp 97.7 F 05/19/22 12:18 Pulse 90 05/19/22 12:18 Resp 14 05/19/22 12:18 BP 145/103 05/19/22 12:18 Pulse Ox 97 05/19/22 12:18 FiO2 Intake & Output 05/18/22 05/19/22 05/19/22 18:59 06:59 18:59 Intake Total 900 Output Total 300 0 Balance 600 0 Intake: Oral 900 Output: Urine 300 Stool 0 Other: Voiding Method Toilet Toilet Toilet # Voids 5 1 # Bowel Movements 1 - Labs CBC & Chem 7: 05/19/22 08:56 05/19/22 08:56 Labs: Abnormal Lab Results - Last 24 Hours (Table) 05/19/22 Range/Units 05:56 Creatine Kinase 622 H (55-170) U/L
--- NOTE | 2022-05-19 18:19 | P.DS ---
Providers Date of admission: 05/15/22 16:13 Expected date of discharge: 05/19/22 Attending physician: Trey Giraldo MD Consults: 05/15/22 16:13 Consult Physician Routine Consulting Provider: [facility] Consult Reason/Comments: suspected atrial fibrillation with rvr, tachycardia Do you want consulting provider notified?: Yes, Notify in am 05/15/22 17:25 Consult Physician Routine Consulting Provider: Louie Bennett Consult Reason/Comments: NGUYEN, h/o sarcoidosis Do you want consulting provider notified?: Yes 05/17/22 09:21 Consult Physician Routine Consulting Provider: Ambrose Crain Consult Reason/Comments: lobulated contour, r/o mass Do you want consulting provider notified?: Yes [facility] Course: Discharge Diagnosis: Syncope due to ventricular tachycardia Cadiac sarcoidosis Hx A flutter with ablation Nonischaemic cardiomyopathy with EF 30-35% HTN Lobulated Left Kidney TIFFANY NGUYEN, resolved Hospital Course: Patient is a 51-year-old male with known systolic congestive heart failure, A. fib, hypertension who presented to the ER for evaluation of syncope. He had a syncopal episode at home. Upon arrival from EMS he was tachycardic up to 200. It was a wide complex tachycardia. He was started on IV amiodarone and converted to normal sinus rhythm. He was admitted for further monitoring. He obtain results of his FDG PET fro [facility] and it appears that he has cardiac sarcoidosis. He was seen by cardiology who feels he should be evaluated at [facility]. His entresto and lasix were held due to NGUYEN, which improved. He was accepted to [facility] on 05/16/22 but no bed was available. His Amio was transitioned to oral, Maxelitine was added and metoprolol was maximized. Renal US showed lobulated left kidney and urology recommended further eval within the [facility] system. Bed became available on 05/19/22 and patient was transferred to [facility]. Patient seen and examined at bedside.Doing well, no chest pain, no shortness of breath, worried about sarcoidosis. Vital signs reviewed and stable. General: nontoxic, no distress, appears at stated age Derm: warm, dry Head: atraumatic, normocephalic, symmetric Eyes: EOMI, no lid lag, anicteric sclera Mouth: no lip lesion, mucus membranes moist Cardiovascular: S1S2 reg, no murmur, positive posterior tibial pulse bilateral, Lungs: CTA bilateral, no rhonchi, no rales , no accessory muscle use Abdominal: soft, nontender to palpation, no guarding, no appreciable organomegaly Ext: no gross muscle atrophy, no edema, no contractures Neuro: CN II-XI grossly intact, no focal neuro deficits Psych: Alert, oriented, appropriate affect A total of 33 minutes of time were spent preparing this complex discharge summary. Patient was discharged on 05/19/22. Patient Condition at Discharge: Stable Plan - Discharge Summary Discharge Rx Participant: Yes New Discharge Prescriptions: No Action Wood-3 Fatty Acids/Fish Oil [Fish Oil 1,000 mg Softgel] 1 cap PO HS Multivitamins, Thera [Multivitamin (formulary)] 2 tab PO DAILY Apixaban [Eliquis] 5 mg PO BID #60 tab Spironolactone [Aldactone] 25 mg PO DAILY #30 tab Metoprolol Succinate [Toprol XL] 50 mg PO DAILY Furosemide [Lasix] 40 mg PO DAILY #30 tab Sacubitril/Valsartan [Entresto 49 mg-51 mg Tablet] 1 tab PO BID Metoprolol Succinate [Toprol XL] 100 mg PO DAILY Indomethacin [Indocin] 50 mg PO BID PRN PRN Reason: GOUT Amiodarone [Cordarone] 200 mg PO HS Discharge Medication List Multivitamins, Thera [Multivitamin (formulary)] 2 tab PO DAILY 08/28/18 [History] Wood-3 Fatty Acids/Fish Oil [Fish Oil 1,000 mg Softgel] 1 cap PO HS 08/28/18 [History] Apixaban [Eliquis] 5 mg PO BID #60 tab 12/25/20 [Rx] Metoprolol Succinate [Toprol XL] 50 mg PO DAILY 02/12/22 [History] Furosemide [Lasix] 40 mg PO DAILY #30 tab 02/14/22 [Rx] Spironolactone [Aldactone] 25 mg PO DAILY #30 tab 02/14/22 [Rx] Amiodarone [Cordarone] 200 mg PO HS 05/15/22 [History] Indomethacin [Indocin] 50 mg PO BID PRN 05/15/22 [History] Metoprolol Succinate [Toprol XL] 100 mg PO DAILY 05/15/22 [History] Sacubitril/Valsartan [Entresto 49 mg-51 mg Tablet] 1 tab PO BID 05/15/22 [History] Follow up Appointment(s)/Referral(s): Jesus Patterson MD [Primary Care Provider] - 1-2 days
[2022-05-19 21:57] VITALS: BP 134/94; PULSE 84; RESP 18; TEMP 98.2
[2022-05-20] MEDS ORDERED: METOPROLOL SUCCINATE (ER) 100 MG TAB.ER.24H PO SCH (09:00)
== END 2022-05-19 22:00 | disposition short-term general hospital (02) | DRG 309 ==
LOC: EC 14:33 → 3SCARD 16:13
PROVIDERS: ADMIT Hospitalist; ATTEND Hospitalist
DX: I47.2 Ventricular tachycardia (principal); I50.22 Chronic systolic (congestive) heart failure; N17.9 Acute kidney failure, unspecified; I42.8 Other cardiomyopathies; I48.0 Paroxysmal atrial fibrillation; K76.0 Fatty (change of) liver, not elsewhere classified; D86.85 Sarcoid myocarditis; D41.02 Neoplasm of uncertain behavior of left kidney; J34.9 Unspecified disorder of nose and nasal sinuses; G47.33 Obstructive sleep apnea (adult) (pediatric); I95.9 Hypotension, unspecified; I11.0 Hypertensive heart disease with heart failure; I08.1 Rheumatic disorders of both mitral and tricuspid valves; M10.9 Gout, unspecified; I45.2 Bifascicular block; Z79.01 Long term (current) use of anticoagulants; Z79.899 Other long term (current) drug therapy; Z80.0 Family history of malignant neoplasm of digestive organs; Z80.42 Family history of malignant neoplasm of prostate; Z87.891 Personal history of nicotine dependence; Z98.890 Other specified postprocedural states; Z28.21 Immunization not carried out because of patient refusal; Z80.8 Family history of malignant neoplasm of other organs or systems
CPT/HCPCS: 36415; 71045; 76770; 80048; 80053; 80076; 80306; 81003; 82164; 82550; 83735; 84443; 84484; 85025; 85027; 85610; 85652; 85730; 86140; 86704; 86706; 86708; 86803; 87340; 87635; 93005; 93306; 96365; 96366; 99285

== ENCOUNTER 2023-09-11 11:29 | Emergency (ER) | payer OTHER ==
[2023-09-11 11:56] VITALS: TEMP 98
--- NOTE | 2023-09-11 12:02 | ED ---
General Adult HPI - General Source: patient, RN notes reviewed, old records reviewed Mode of arrival: ambulatory Limitations: no limitations <Aram Berry - Last Filed: 09/11/23 15:25> - History of Present Illness -: week(s) (Patient states he has not been feeling well for weeks) Associated Symptoms: chest pain Treatments Prior to Arrival: none <Jesus Croft - Last Filed: 09/11/23 18:08> - General Chief complaint: Arrhythmia/Palpitations Stated complaint: dizziness/ defibrillator went off Time Seen by Provider: 09/11/23 11:43 - History of Present Illness Initial comments: 52-year-old male history of sarcoidosis and heart failure presenting with suspected fibrillator discharge. Patient follows at [facility] in their heart failure center and has had a defibrillator pacemaker placed. He was having symptoms of lightheadedness and near syncope over the past several weeks. He was leaving the house and was defibrillated just prior to arrival. He has a [employer] pacemaker defibrillator. (Aram Berry) 52 male who presents to the ER who did present after defibrillated today. Patient was cardioverted from ventricular tachycardia back to a paced rhythm. Patient states he has not been feeling well for weeks (Jesus Croft) - Related Data Home Medications Medication Instructions Recorded Confirmed Metoprolol Succinate [Toprol XL] 100 mg PO DAILY 05/15/22 09/11/23 Alendronate Sodium 70 mg PO MO 09/11/23 09/11/23 Empagliflozin [Jardiance] 10 mg PO DAILY 09/11/23 09/11/23 Magnesium 200 mg PO HS 09/11/23 09/11/23 Mexiletine HCl 150 mg PO TID 09/11/23 09/11/23 Nystatin 100,000 Unit/ml Susp 5 ml PO QID 09/11/23 09/11/23 [Mycostatin Oral Susp] Sacubitril/Valsartan [Entresto 24 1 tab PO BID 09/11/23 09/11/23 mg-26 mg Tablet] Spironolactone [Aldactone] 12.5 mg PO DAILY 09/11/23 09/11/23 Sulfamethox-Tmp 800-160Mg [Bactrim 1 tab PO MOWEFR 09/11/23 09/11/23 DS 800-160 mg] mycophenolate mofetiL [Cellcept] 1,000 mg PO BID 09/11/23 09/11/23 predniSONE 5 mg PO DAILY 09/11/23 09/11/23 predniSONE 10 mg PO DAILY 09/11/23 09/11/23 Previous Rx's Medication Instructions Recorded Apixaban [Eliquis] 5 mg PO BID #60 tab 12/25/20 Furosemide [Lasix] 40 mg PO DAILY #30 tab 02/14/22 Allergies Allergy/AdvReac Type Severity Reaction Status Date / Time No Known Allergies Allergy Verified 09/11/23 13:10 Review of Systems ROS Other: All systems not noted in ROS Statement are negative. <Aram Berry - Last Filed: 09/11/23 15:25> ROS Other: All systems not noted in ROS Statement are negative. <Jesus Croft - Last Filed: 09/11/23 18:08> ROS Statement: Those systems with pertinent positive or pertinent negative responses have been documented in the HPI. Past Medical History Past Medical History: Atrial Fibrillation, Hypertension, Osteoarthritis (OA) Additional Past Medical History / Comment(s): FATTY LIVER., SINUS PROBLEMS, STATES BEING TESTED FOR [facility]MM[facility]E DISE[facility] SYMPTOMS OF LOSS OF STRENGTH, FEELS TIRED ELEVATED CK AND LIVER ENZYMES, STATES SHOT FOR HEPATITIS AT 10 YRS OLD ? EXPOSURE., SEE CARDIOLOGY H & P., STATES SOB. GOUT History of Any Multi-Drug Resistant Organisms: None Reported Past Surgical History: Orthopedic Surgery Additional Past Surgical History / Comment(s): RIGHT CARPAL TUNNEL RELEASE, COLONOSCOPY. WISDOM TEETH., MUSCLE BX. Past Anesthesia/Blood Transfusion Reactions: No Reported Reaction Past Psychological History: No Psychological Hx Reported Smoking Status: Former smoker Past Alcohol Use History: Rare Past Drug Use History: None Reported - Past Family History Father Family Medical History: Cancer Additional Family Medical History / Comment(s): PROSTATE CANCER Mother Family Medical History: Cancer Additional Family Medical History / Comment(s): COLON CANCER X2 Brother(s) Family Medical History: Cancer Additional Family Medical History / Comment(s): SKIN <Aram Berry - Last Filed: 09/11/23 15:25> General Exam Limitations: no limitations General appearance: alert, in no apparent distress Head exam: Present: atraumatic, normocephalic Eye exam: Present: normal appearance, PERRL ENT exam: Present: normal exam Neck exam: Present: normal inspection. Absent: tenderness, meningismus Respiratory exam: Present: normal lung sounds bilaterally. Absent: respiratory distress Cardiovascular Exam: Present: regular rate, irregular rhythm GI/Abdominal exam: Present: soft. Absent: distended, tenderness, guarding Extremities exam: Present: normal inspection, normal capillary refill. Absent: pedal edema Neurological exam: Present: alert, oriented X3, CN II-XII intact. Absent: motor sensory deficit Psychiatric exam: Present: normal affect, normal mood Skin exam: Present: warm, dry, intact. Absent: cyanosis, diaphoretic <Aram Berry - Last Filed: 09/11/23 15:25> General appearance: alert, in no apparent distress, anxious Head exam: Present: atraumatic, normocephalic, normal inspection Eye exam: Present: normal appearance, PERRL, EOMI. Absent: scleral icterus, conjunctival injection, periorbital swelling ENT exam: Present: normal exam, mucous membranes moist Neck exam: Present: normal inspection. Absent: tenderness, meningismus, lymphadenopathy Respiratory exam: Present: normal lung sounds bilaterally. Absent: respiratory distress, wheezes, rales, rhonchi, stridor Cardiovascular Exam: Present: regular rate, normal rhythm, normal heart sounds. Absent: systolic murmur, diastolic murmur, rubs, gallop, clicks GI/Abdominal exam: Present: soft, normal bowel sounds. Absent: distended, tenderness, guarding, rebound, rigid Extremities exam: Present: normal inspection, full ROM, normal capillary refill. Absent: tenderness, pedal edema, joint swelling, calf tenderness Back exam: Present: normal inspection Neurological exam: Present: alert, oriented X3, CN II-XII intact Psychiatric exam: Present: normal affect, normal mood Skin exam: Present: warm, dry, intact, normal color. Absent: rash <Jesus Croft - Last Filed: 09/11/23 18:08> Course <Aram Berry - Last Filed: 09/11/23 15:25> <Jesus Croft - Last Filed: 09/11/23 18:08> Vital Signs 09/11/23 09/11/23 09/11/23 11:37 11:40 13:00 Temperature 98 F Pulse Rate 54 L 63 61 Pulse Rate [ Pulse Oximetery ] Respiratory 16 17 18 Rate Blood Pressure 121/78 124/80 105/79 Blood Pressure [Left Arm Sitting] O2 Sat by Pulse 100 98 96 Oximetry 09/11/23 09/11/23 09/11/23 13:06 13:15 13:30 Temperature Pulse Rate Pulse Rate [ 59 L 58 L 60 Pulse Oximetery ] Respiratory 18 17 17 Rate Blood Pressure Blood Pressure 124/80 124/80 112/83 [Left Arm Sitting] O2 Sat by Pulse 96 96 95 Oximetry 09/11/23 09/11/23 09/11/23 14:30 14:45 15:00 Temperature Pulse Rate Pulse Rate [ 60 62 60 Pulse Oximetery ] Respiratory 18 17 17 Rate Blood Pressure Blood Pressure 112/75 103/76 113/85 [Left Arm Sitting] O2 Sat by Pulse 97 96 Oximetry 09/11/23 09/11/23 09/11/23 15:15 15:30 15:45 Temperature Pulse Rate Pulse Rate [ 62 61 61 Pulse Oximetery ] Respiratory 17 17 17 Rate Blood Pressure Blood Pressure 111/74 104/81 114/75 [Left Arm Sitting] O2 Sat by Pulse 98 97 98 Oximetry 09/11/23 09/11/23 09/11/23 16:00 16:15 16:30 Temperature Pulse Rate Pulse Rate [ 60 60 61 Pulse Oximetery ] Respiratory 17 18 17 Rate Blood Pressure Blood Pressure 103/83 112/83 125/93 [Left Arm Sitting] O2 Sat by Pulse 98 93 L 98 Oximetry 09/11/23 09/11/23 09/11/23 17:00 17:15 17:30 Temperature Pulse Rate Pulse Rate [ 61 60 61 Pulse Oximetery ] Respiratory 17 17 17 Rate Blood Pressure Blood Pressure 115/88 131/92 124/93 [Left Arm Sitting] O2 Sat by Pulse 98 98 98 Oximetry 09/11/23 17:45 Temperature Pulse Rate Pulse Rate [ 60 Pulse Oximetery ] Respiratory 17 Rate Blood Pressure Blood Pressure 120/88 [Left Arm Sitting] O2 Sat by Pulse 97 Oximetry - Reevaluation(s) Reevaluation #1: 09/11/23 [id number] [place]ia estrada for cardiology who recommends transfer to [facility]. (Aram Berry) Reevaluation #2: 09/11/23 15:32 Awaiting callback from [facility] aerobics instructor. Care signed out to Dr. Croft. (Aram Berry) Reevaluation #3: 09/11/23 18:06 I did speak with patient's aerobics instructor Dr. Rome who does recommended transfer to [facility] (Jesus Croft) - Consultations Consultation #1: Spoke with [facility] transfer who does accept patient for transfer, patient be transferred by EMS (Jesus Croft) Medical Decision Making - Lab Data Result diagrams: 09/11/23 12:34 09/11/23 12:34 <Aram Berry - Last Filed: 09/11/23 15:25> - Lab Data Result diagrams: 09/11/23 12:34 09/11/23 12:34 - EKG Data -: EKG Interpreted by Me (EKG is a paced rhythm) <Jesus Croft - Last Filed: 09/11/23 18:08> - Medical Decision Making Was pt. sent in by a medical professional or institution (, PA, PRODUCT DISTRIBUTION SPECIALIST, urgent care, hospital, or [facility]...) When possible be specific @ -No Did you speak to anyone other than the patient for history (EMS, parent, family, police, friend...)? What history was obtained from this source @ -No Did you review nursing and triage notes (agree or disagree)? Why? @ -I reviewed and agree with nursing and triage notes Were old charts reviewed (outside hosp., previous admission, EMS record, old EKG, old radiological studies, urgent care reports/EKG's, [facility] records)? Report findings @ -No old charts were reviewed Differential Diagnosis (chest pain, altered mental status, abdominal pain women, abdominal pain men, vaginal bleeding, weakness, fever, dyspnea, syncope, headache, dizziness, GI bleed, back pain, seizure, CVA, palpatations, mental health, musculoskeletal)? @ -[Differential Palpitations Ventricular arrhythmias, atrial arrhythmias, myocardial infarction, anemia, thyrotoxicosis, electrolyte imbalance, hypokalemia, pulmonary embolism, pulmonary disease, drugs, alcohol, anxiety, stress.... This is not meant to be an all-inclusive list. EKG interpreted by me (3pts min.). @ EKG: Ventricular paced rhythm with frequent PVC rate is 74, QS duration to 10, QTC 492 X-rays interpreted by me (1pt min.). @ Chest x-ray negative for acute cardiac primary findings CT interpreted by me (1pt min.). @ -None done U/S interpreted by me (1pt. min.). @ -None done What testing was considered but not performed or refused? (CT, X-rays, U/S, labs)? Why? @ -None What meds were considered but not given or refused? Why? @ -None Did you discuss the management of the patient with other professionals (professionals i.e. , PA, PRODUCT DISTRIBUTION SPECIALIST, lab, RT, psych nurse, psychologist social, product craftsman, teacher, loan servicing officer, piano case and bench assembler)? Give summary @ -Case discussed with Dr. Lovelace who does recommend transfer to [facility]. Awaiting contact with transfer team at [facility] Was smoking cessation discussed for >3mins.? @ -No Was critical care preformed (if so, how long)? @ -No Were there social determinants of health that impacted care today? How? (Homelessness, low income, unemployed, alcoholism, drug addiction, transportation, low edu. Level, literacy, decrease access to med. care, fdc, rehab)? @ -No Was there de-escalation of care discussed even if they declined (Discuss DNR or withdrawal of care, Hospice)? DNR status @ -No What co-morbidities impacted this encounter? (DM, HTN, Smoking, COPD, CAD, Cancer, CVA, ARF, Chemo, Hep., AIDS, mental health diagnosis, sleep apnea, morbid obesity)? @ -Atrial fibrillation, cardiomyopathy, placement of pacemaker defibrillator Was patient admitted / discharged? Hospital course, mention meds given and route, prescriptions, significant lab abnormalities, going to OR and other pertinent info. @ 52-year-old male with history suggestive of defibrillator discharge. 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 Patient states she has not felt well for several weeks with episodes of lightheadedness. He is symptoms are improved at the time my initial evaluation. He is in a paced rhythm. [employer] defibrillator will be interrogated in the emergency department. Case discussed with cardiology, Dr. Lovelace who does recommend transfer to [facility] given the complexity of this patient's illness. Case discussed with the transfer team and recommends speaking with the patient's aerobics instructor Dr. Rome, for recommendations. @ -No Drug Therapy requiring intensive monitoring for toxicity (Heparin, Nitro, Insulin, Cardizem)? @ -No Were any procedures done? @ -No Diagnosis/symptom? @ -Nonischemic cardiomyopathy, defibrillator discharge, ventricular tachycardia Acute, or Chronic, or Acute on Chronic? @ -Acute Uncomplicated (without systemic symptoms) or Complicated (systemic symptoms)? @ -Complicated Side effects of treatment? @ -No Exacerbation, Progression, or Severe Exacerbation? @ -No Poses a threat to life or bodily function? How? (Chest pain, USA, CT, pneumonia, PE, COPD, DKA, ARF, appy, cholecystitis, CVA, Diverticulitis, Homicidal, Suicidal, threat to staff... and all critical care pts) @ Yes, arrhythmia (Aram Berry) 52 male with history of cardiomyopathy transferred for [facility] secondary to ventricular tachycardia (Jesus Croft) - Lab Data Lab Results 09/11/23 09/11/23 09/11/23 Range/Units 12:34 12:34 12:34 WBC 9.1 (3.8-10.6) k/uL RBC 4.60 (4.30-5.90) m/uL Hgb 14.3 (13.0-17.5) gm/dL Hct 42.8 (39.0-53.0) % MCV 92.9 (80.0-100.0) fL MCH 31.0 (25.0-35.0) pg MCHC 33.4 (31.0-37.0) g/dL RDW 13.8 (11.5-15.5) % Plt Count 216 (150-450) k/uL MPV 7.2 Neutrophils % 71 % Lymphocytes % 20 % Monocytes % 6 % Eosinophils % 2 % Basophils % 1 % Neutrophils # 6.5 (1.3-7.7) k/uL Lymphocytes # 1.8 (1.0-4.8) k/uL Monocytes # 0.5 (0-1.0) k/uL Eosinophils # 0.2 (0-0.7) k/uL Basophils # 0.1 (0-0.2) k/uL PT 11.1 (10.0-12.5) sec INR 1.0 (<1.2) APTT 25.6 (22.0-30.0) sec Sodium 139 (137-145) mmol/L Potassium 3.7 (3.5-5.1) mmol/L Chloride 105 (98-107) mmol/L Carbon Dioxide 24 (22-30) mmol/L Anion Gap 10 mmol/L BUN 18 (9-20) mg/dL Creatinine 0.92 (0.66-1.25) mg/dL Est GFR (CKD-EPI)AfAm >90 (>60 ml/min/1.73 sqM) Est GFR (CKD-EPI)NonAf >90 (>60 ml/min/1.73 sqM) Glucose 109 H (74-99) mg/dL Calcium 9.2 (8.4-10.2) mg/dL Magnesium 2.1 (1.6-2.3) mg/dL Total Bilirubin 0.8 (0.2-1.3) mg/dL AST 42 (17-59) U/L ALT 37 (4-49) U/L Alkaline Phosphatase 39 (38-126) U/L Troponin I (0.000-0.034) ng/mL Total Protein 6.5 (6.3-8.2) g/dL Albumin 4.0 (3.5-5.0) g/dL 09/11/23 Range/Units 12:34 WBC (3.8-10.6) k/uL RBC (4.30-5.90) m/uL Hgb (13.0-17.5) gm/dL Hct (39.0-53.0) % MCV (80.0-100.0) fL MCH (25.0-35.0) pg MCHC (31.0-37.0) g/dL RDW (11.5-15.5) % Plt Count (150-450) k/uL MPV Neutrophils % % Lymphocytes % % Monocytes % % Eosinophils % % Basophils % % Neutrophils # (1.3-7.7) k/uL Lymphocytes # (1.0-4.8) k/uL Monocytes # (0-1.0) k/uL Eosinophils # (0-0.7) k/uL Basophils # (0-0.2) k/uL PT (10.0-12.5) sec INR (<1.2) APTT (22.0-30.0) sec Sodium (137-145) mmol/L Potassium (3.5-5.1) mmol/L Chloride (98-107) mmol/L Carbon Dioxide (22-30) mmol/L Anion Gap mmol/L BUN (9-20) mg/dL Creatinine (0.66-1.25) mg/dL Est GFR (CKD-EPI)AfAm (>60 ml/min/1.73 sqM) Est GFR (CKD-EPI)NonAf (>60 ml/min/1.73 sqM) Glucose (74-99) mg/dL Calcium (8.4-10.2) mg/dL Magnesium (1.6-2.3) mg/dL Total Bilirubin (0.2-1.3) mg/dL AST (17-59) U/L ALT (4-49) U/L Alkaline Phosphatase (38-126) U/L Troponin I 0.046 H* (0.000-0.034) ng/mL Total Protein (6.3-8.2) g/dL Albumin (3.5-5.0) g/dL Disposition Is patient prescribed a controlled substance at d/c from ED?: No Time of Disposition: 15:26 - Out of Hospital Transfer - Req. Specs Out of Hospital Transfer - Requested Specifics: Other Emergency Center (Transfer to [facility]) <Aram Berry - Last Filed: 09/11/23 15:25> Is patient prescribed a controlled substance at d/c from ED?: No <Jesus Croft - Last Filed: 09/11/23 18:08> Clinical Impression: Defibrillator discharge, Cardiomyopathy, Sarcoidosis, Ventricular tachycardia, Palpitations Disposition: OTHER INSTITUTION NOT DEFINED Condition: Serious Referrals: Jesus Patterson MD [Primary Care Provider] - 1-2 days
[2023-09-11] MEDS ORDERED: DEXTROSE 5% IN WATER 100 ML with AMIODARONE 150 MG IV ONE (12:06)
[2023-09-11] MEDS ORDERED: AMIODARONE 360 MG in DEXTROSE 5% IN WATER 200 ML IV ONE ×2 (12:06)
[2023-09-11 13:13] LABS: ALT 37 U/L (4-49); AST 42 U/L (17-59); African American GFR (CKD) >90 (>60 ml/min/1.73 sqM); Alkaline Phosphatase 39 U/L (38-126); Anion Gap 10 mmol/L; Blood Urea Nitrogen 18 mg/dL (9-20); Calcium 9.2 mg/dL (8.4-10.2); Carbon Dioxide 24 mmol/L (22-30); Chloride 105 mmol/L (98-107); Glucose 109 mg/dL (74-99); Magnesium 2.1 mg/dL (1.6-2.3); Non-African American GFR(CKD) >90 (>60 ml/min/1.73 sqM); Potassium 3.7 mmol/L (3.5-5.1); Sodium 139 mmol/L (137-145); Total Bilirubin 0.8 mg/dL (0.2-1.3); Total Protein 6.5 g/dL (6.3-8.2)
[2023-09-11 13:14] LABS: Basophils # (A) 0.1 k/uL (0-0.2); Basophils % (A) 1 %; Eosinophils # (A) 0.2 k/uL (0-0.7); Eosinophils % (A) 2 %; HCT 42.8 % (39.0-53.0); HGB 14.3 gm/dL (13.0-17.5); Lymphocytes # (A) 1.8 k/uL (1.0-4.8); Lymphocytes % (A) 20 %; MCHC 33.4 g/dL (31.0-37.0); MCV 92.9 fL (80.0-100.0); Mean Platelet Volume 7.2; Monocytes # (A) 0.5 k/uL (0-1.0); Monocytes % (A) 6 %; Neutrophils # (A) 6.5 k/uL (1.3-7.7); Neutrophils % (A) 71 %; Platelet Count 216 k/uL (150-450); RDW 13.8 % (11.5-15.5); WBC 9.1 k/uL (3.8-10.6)
[2023-09-11 13:50] LABS: Partial Thromboplastin Time 25.6 sec (22.0-30.0); Prothrombin Time 11.1 sec (10.0-12.5)
--- NOTE | 2023-09-11 14:17 | XR ---
EXAMINATION TYPE: XR chest 2V DATE OF EXAM: 09/11/2023 COMPARISON: 05/15/2022 INDICATION: Dysrhythmia TECHNIQUE: Frontal and lateral views of the chest are obtained. FINDINGS: The heart size is mildly prominent. The pulmonary vasculature is normal. The lungs are clear. IMPRESSION: 1. No acute pulmonary process. 2. Mild cardiomegaly
[2023-09-11] MEDS ORDERED: POTASSIUM BICARBONATE/CIT AC 20 MEQ TABLET.EFF PO STA (15:53)
[2023-09-11] MEDS ORDERED: MAGNESIUM OXIDE 400 MG TAB PO STA (15:53)
[2023-09-11] MEDS ORDERED: AMIODARONE 450 MG in DEXTROSE 5% IN WATER 250 ML IV SCH ×2 (18:15)
[2023-09-11 19:45] VITALS: RESP 16
[2023-09-11 20:17] VITALS: BP 109/80; PULSE 65
[2023-09-11] MEDS ORDERED: SACUBITRIL/VALSARTAN 24 MG-26 MG TABLET PO SCH (21:00)
[2023-09-11] MEDS ORDERED: APIXABAN 5 MG TAB PO SCH (21:00)
[2023-09-12] MEDS ORDERED: FUROSEMIDE 40 MG TAB PO SCH (09:00)
[2023-09-12] MEDS ORDERED: predniSONE 5 MG TAB PO SCH (09:00)
[2023-09-12] MEDS ORDERED: SPIRONOLACTONE 25 MG TAB PO SCH (09:00)
[2023-09-12] MEDS ORDERED: METOPROLOL SUCCINATE (ER) 100 MG TAB.ER.24H PO SCH (09:00)
[2023-09-12] MEDS ORDERED: predniSONE 10 MG TAB PO SCH (09:00)
== END 2023-09-11 20:06 | disposition other institution (70) ==
LOC: EC 11:29
DX: Z45.02 Encounter for adjustment and management of automatic implantable cardiac defibrillator (principal); I47.20 Ventricular tachycardia, unspecified; I42.9 Cardiomyopathy, unspecified; D86.9 Sarcoidosis, unspecified; R00.2 Palpitations; I11.0 Hypertensive heart disease with heart failure; I50.9 Heart failure, unspecified; I48.91 Unspecified atrial fibrillation; M19.90 Unspecified osteoarthritis, unspecified site; Z87.891 Personal history of nicotine dependence; Z79.899 Other long term (current) drug therapy
CPT/HCPCS: 36415; 93005; 80053; 83735; 84484; 85025; 85610; 85730; 71046; 99285; 96365; 96366 ×5; J0282 ×2

== ENCOUNTER → 2023-10-31 | Outpatient (CLI) | payer OTHER ==
--- NOTE | 2023-10-31 16:47 | P.SLEEP ---
History of Present Illness DATE: 10/31/2023 CONSULTATION/NEW PATIENT EVALUATION HISTORY OF PRESENT ILLNESS/SLEEP-WAKE EVALUATION: 53-year-old gentleman had been evaluated in the sleep center for possible obstructive sleep apnea hypopnea syndrome. SLEEP SCHEDULE: Usually sleep schedule 10:30 PM to 6 AM on weekdays and from 11 PM to 8 AM on weekend. FALLING ASLEEP: No problems with falling asleep. DURING SLEEP: Patient has loud snoring and witnessed episodes of stop breathing during the sleep. Patient wakes up once with nocturia. Positive history of restless leg symptoms and episodes of gasping for air. No history of hypnogogical hallucinations, sleep paralysis, or cataplexy. DURING THE DAY/WAKE STATE: In the morning patient wake up tired. [place] sleepiness scale is increased to 11. Usually patient doesn't take naps. PAST MEDICAL HISTORY: Hypertension, atrial fibrillation status post ablation, sarcoidosis of the heart. PAST SURGICAL HISTORY: ICD implant. MEDICATIONS: Metoprolol 100 mg once a day, prednisone 5 mg once a day, sotalol 160 mg twice a day, Entresto, spironolactone 12.5 mg once a day, furosemide 40 mg once a day, jardiance 10 mg once a day, magnesium supplement. SOCIAL HISTORY: Positive for smoking for about 30 pack years, quit 8 years ago, alcohol consumption occasional. FAMILY HISTORY: Cancer, arthritis, hypertension. REVIEW OF SYSTEMS: Loud snoring, awakenings from sleep with gasping for air. No fevers. No double vision. No recent chest pain. No shortness of breath. No abdominal pain. No bleeding episodes. No blood in urine. No seizure episodes. PHYSICAL EXAMINATION: GENERAL: A pleasant patient without any distress. VITAL SIGNS: BP 134/86 , HR 72 , RR 16 , weight 247 pounds, height 5 foot 10 inches, body mass index 35.4 . HEENT: PERRLA, EOMI. Evaluation of oropharynx showed tongue protrudes midline, low position of soft palate Mallampati 34. NECK: Supple. No JVD. Thyroid is not palpable. 17 inches in circumference. LUNGS: Clear to percussion and to auscultation. Good air exchange. No wheezing or rhonchi. HEART: S1, S2 regular. No murmurs, gallops or rubs. ABDOMEN: Soft and nontender. Bowel sounds are present. No organomegaly appreciated. EXTREMITIES: No clubbing or cyanosis. DIVIDEND CLERK: Awake, alert, and oriented x3. Cranial nerves 2 to 7 intact. There is no fasciculation or atrophy noted. No focal deficits observed. ASSESSMENT: 1. Loud snoring, witnessed episodes of stop breathing during the sleep, low position of soft palate Mallampati 34, wide neck 17 inches in circumference. Obstructive sleep apnea-hypopnea syndrome. 2. History of atrial fibrillation, status post cardiac ablation and ICD implant. 3. History of sarcoidosis of the heart. 4. Obesity BMI 35.4. 5 hypertension. PLAN: 1. Polysomnography for evaluation of patient's breathing during sleep. 2. CPAP/BiPAP titration if sleep study confirms obstructive sleep apnea- hypopnea syndrome. 3. Preferable position during sleep on the side. 4. No driving if patient feels any sleepiness. Patient is aware of civil and criminal liability for unsafe driving. 5. Sleep hygiene with regular sleep time for at least 7.5-8 hours. 6. Watching and losing weight. Thank you very much for referring this patient for consultation. Sincerely, Dominic Avila MD, PhD, FAASM. Diplomat of [employer] [employer], Sleep Medicine Board by [employer] [employer] [employer] Circular Clerk of [facility] [place] Past Medical History Past Medical History: Atrial Fibrillation, Hypertension, Osteoarthritis (OA) Additional Past Medical History / Comment(s): FATTY LIVER., SINUS PROBLEMS, STATES BEING TESTED FOR [facility] IMMUNE DISEASE [facility] SYMPTOMS OF LOSS OF STRENGTH, FEELS TIRED ELEVATED CK AND LIVER ENZYMES, STATES SHOT FOR HEPATITIS AT 10 YRS OLD ? EXPOSURE., SEE CARDIOLOGY H & P., STATES SOB. GOUT History of Any Multi-Drug Resistant Organisms: None Reported Past Surgical History: Orthopedic Surgery Additional Past Surgical History / Comment(s): RIGHT CARPAL TUNNEL RELEASE, COLONOSCOPY. WISDOM TEETH., MUSCLE BX. Past Anesthesia/Blood Transfusion Reactions: No Reported Reaction Past Psychological History: No Psychological Hx Reported Smoking Status: Former smoker Past Alcohol Use History: Rare Past Drug Use History: None Reported - Past Family History Father Family Medical History: Cancer Additional Family Medical History / Comment(s): PROSTATE CANCER Mother Family Medical History: Cancer Additional Family Medical History / Comment(s): COLON CANCER X2 Brother(s) Family Medical History: Cancer Additional Family Medical History / Comment(s): SKIN Medications and Allergies Home Medications Medication Instructions Recorded Confirmed Type Apixaban [Eliquis] 5 mg PO BID #60 tab 12/25/20 10/31/23 Rx Furosemide [Lasix] 40 mg PO DAILY #30 tab 02/14/22 10/31/23 Rx Metoprolol Succinate [Toprol XL] 100 mg PO DAILY 05/15/22 10/31/23 History Empagliflozin [Jardiance] 10 mg PO DAILY 09/11/23 10/31/23 History Magnesium 200 mg PO HS 09/11/23 10/31/23 History Mexiletine HCl 150 mg PO TID 09/11/23 10/31/23 History Sacubitril/Valsartan [Entresto 24 1 tab PO BID 09/11/23 10/31/23 History mg-26 mg Tablet] Spironolactone [Aldactone] 12.5 mg PO DAILY 09/11/23 10/31/23 History Sulfamethox-Tmp 800-160Mg [Bactrim 1 tab PO MOWEFR 09/11/23 10/31/23 History DS 800-160 mg] mycophenolate mofetiL [Cellcept] 1,000 mg PO BID 09/11/23 10/31/23 History predniSONE 5 mg PO DAILY 09/11/23 10/31/23 History predniSONE 10 mg PO DAILY 09/11/23 10/31/23 History Allergies Allergy/AdvReac Type Severity Reaction Status Date / Time lisinopril AdvReac Cough Verified 10/31/23 16:10 Sleep Note - Sleep Note Sleep Note: Temperature: Pulse Rate: Respiratory Rate: Blood Pressure: SpO2: Height: Weight: BMI: Neck Circumference:
== END ==
LOC: 3 N SLEEP 15:40
PROVIDERS: ATTEND Internal Medicine
DX: G47.33 Obstructive sleep apnea (adult) (pediatric) (principal); I48.91 Unspecified atrial fibrillation; E66.9 Obesity, unspecified; I10 Essential (primary) hypertension; Z87.09 Personal history of other diseases of the respiratory system; Z68.35 Body mass index [BMI] 35.0-35.9, adult; Z79.899 Other long term (current) drug therapy; Z88.8 Allergy status to other drugs, medicaments and biological substances; Z79.01 Long term (current) use of anticoagulants; Z87.891 Personal history of nicotine dependence
CPT/HCPCS: 99211

== ENCOUNTER 2023-11-02 11:32 | Day surgery (SDC) | payer OTHER ==
[2023-10-31 16:15] VITALS: BMI 34.1
[2023-11-02] MEDS ORDERED: LACTATED RINGERS 1,000 ML IV SCH (12:02)
[2023-11-02 12:25] LABS: Glucose,Whole Blood 115 mg/dL (70-110)
[2023-11-02] MEDS ORDERED: PROPOFOL 10 MG/ML 20 ML VIAL IV ONE (12:39)
[2023-11-02] MEDS ORDERED: LIDOCAINE 1% INJ 10MG/ML (20 ML MDV) ONE (12:39)
[2023-11-02 12:40] VITALS: RESP 16; TEMP 97.8
--- NOTE | 2023-11-02 13:00 | P.PCN ---
Date of Procedure: 11/02/23 Procedure(s) Performed: BRIEF HISTORY: Patient is a 53-year-old pleasant at female scheduled for an elective colonoscopy as a part of screening for colon cancer and family history of colon cancer. His mother was diagnosed with colon cancer at age 48. PROCEDURE PERFORMED: Colonoscopy. PREOPERATIVE DIAGNOSIS: Screening for colon cancer and family history of colon cancer. IV sedation per Anesthesia. PROCEDURE: After informed consent was obtained, the patient, was brought into the endoscopy unit. IV sedation was administered by Anesthesia under continuous monitoring. Digital rectal examination was normal. Initially the Olympus CF-160 flexible video colonoscope was then inserted in the rectum, gradually advanced into the cecum without any difficulty. Careful examination was performed as the scope was gradually being withdrawn. Ileocecal valve and the appendiceal orifice were visualized and appeared normal. Prep was fair.. Mucosa of the cecum, ascending colon, transverse colon, descending colon, sigmoid colon, and rectum appeared normal. Retroflexion was performed in the rectum and no lesions were seen. The patient tolerated the procedure well. IMPRESSION: Normal-appearing colon from rectum to cecum with no evidence of colorectal neoplasia. RECOMMENDATIONS: Findings of this examination were discussed with the patient as well as his family. He was advised to have a repeat colonoscopy every 5 years because of the family history of colon cancer.
[2023-11-02 13:28] VITALS: BP 126/87; PULSE 67
== END 2023-11-02 14:20 | disposition home or self-care (01) ==
LOC: ORWHC2ENDO 11:32
PROVIDERS: ATTEND Internal Medicine Gastroenterology
DX: Z12.11 Encounter for screening for malignant neoplasm of colon (principal); I48.91 Unspecified atrial fibrillation; I10 Essential (primary) hypertension; M19.90 Unspecified osteoarthritis, unspecified site; Z95.0 Presence of cardiac pacemaker; Z80.0 Family history of malignant neoplasm of digestive organs; Z79.01 Long term (current) use of anticoagulants; Z79.899 Other long term (current) drug therapy
CPT/HCPCS: 45378; J2001; J2704

== ENCOUNTER → 2023-12-26 | Outpatient (CLI) | payer OTHER ==
--- NOTE | 2023-12-27 10:43 | P.PCN ---
Description of Procedure: CLINICAL: A home sleep apnea test has been done for confirmation of possible obstructive sleep apnea-hypopnea syndrome. DESCRIPTION OF PROCEDURE: RESULTS: Recording time was 7hours 51 minutes. Evaluation time was 7 hours 28 minutes. Evaluation time is sufficient for making conclusion about results of the test. Raw data of sleep recording has been reviewed and is adequate. Respiratory channel showed 114 apneas and 309 hypopneas. Apnea-hypopnea index was 56.6 per hour. Pulse rate in the range between minimum 40, maximum 108, average 64 by computer calculation. Lowest desaturation was 65%. IMPRESSION: 1. Severe Obstructive Sleep Apnea Hypopnea Syndrome. Please see other impressions from consultation. PLAN: 1. The patient should have PAP titration for correction of severe respiratory abnormallities during sleep. 2. Sleep hygiene with regular time in bed for at least 8 hours. 3. Watching weight. 4. No driving if feeling any sleepiness. Thank you very much for allowing me to participate in the management of your patient. Sincerely, Dominic Avila MD, PhD, FAASM Diplomat of [employer] Sleep Medicine Board of [employer] It Operations Specialist of [facility] [place]
== END ==
LOC: 3 N SLEEP 16:40
PROVIDERS: ATTEND Internal Medicine
DX: G47.33 Obstructive sleep apnea (adult) (pediatric) (principal); Z88.8 Allergy status to other drugs, medicaments and biological substances; Z87.891 Personal history of nicotine dependence

== ENCOUNTER → 2024-08-07 | Outpatient (CLI) | payer OTHER ==
[2024-08-07 16:54] VITALS: BP 116/79; PULSE 60; RESP 16; TEMP 98.3
--- NOTE | 2024-08-07 17:30 | P.PROGSL ---
Subjective DATE: 08/07/2024 FOLLOW UP VISIT. Patient with obstructive sleep apnea hypopnea syndrome return to sleep center for follow-up visit. Recently patient had sleep study which documented obstructive sleep apnea hypopnea syndrome. Patient was initiated on PAP therapy and today is first visit after treatment was started. Patient was able to use PAP equipment every night for the whole night. Patient sleeps better and feels better during the day after starting to use CPAP equipment The patient does not have significant problems with the mask, PAP pressure and humidification. [place] sleepiness scale is 8. I checked information from PAP unit. PAP unit pressure 5-15, average 12.8 cm H2O. Usage is 97% for more then 4 hours, average 6.75 hours per night. Leak is 17.9 l/m, which is in acceptable range. Apnea Hypopnea Index is slightly increased to 6.9. MEDICATIONS: Please see below During physical exam: GENERAL: A pleasant patient without any distress. VITAL SIGNS: Please see below, weight 246.6 pounds. HEENT: PERRLA, EOMI.low position of soft palate, Mallapati 34. NECK: Supple. No JVD. LUNGS: Clear to percussion and to auscultation. Good air exchange. No wheezing or rhonchi. HEART: S1, S2 regular. ABDOMEN: Soft and nontender.[] EXTREMITIES: No clubbing or cyanosis. RESIDENTIAL PROGRAM COORDINATOR: Awake, alert, and oriented x3. No focal deficit. I increased range of the pressure to 7-17 cm of water, increased ramp starting pressure to 6 cm of water, increase humidity to 5. I explained to the patient how to adjust humidity level and temperature in the tube. Impressions: 1. Obstructive sleep apnea-hypopnea syndrome. Patient demonstrated great compliance with treatment, benefiting from treatment. 2. History of atrial fibrillation, status post cardiac ablation and ICD implant. 3. History of sarcoidosis of the heart. 4. Obesity, body mass index around 35. 5. Hypertension. Plan: 1. Continue using PAP equipment every night for the whole night. 2. To change air filter at least 1-2 times per month. 3. PAP unit should stay lower then position of the head. 4. Advised patient to remove all remaining water from humidifier canister daily and make it dry after each usage. Refill canister with fresh distilled water before each usage. 5. Sleep hygiene with regular time in bed for at least 8 hours. 6. Precautions related to driving. No driving if feel any sleepiness. 7. I will maintain prescription for PAP supplies including mask, tube, filters. 8. Follow up visit in 6 months or earlier if patient has any problems. 9. Watching and losing weight. Thank you very much for allowing me to participate in the management of your patient. Dominic Avila MD, PhD, FAASM. Diplomat of [place] [employer], Sleep Medicine Board by [place] [employer] Novel[employer] Worker of [facility] [place] cc: Jose Antonio Patterson MD Objective - Vital Signs Vital Signs: Vital Signs Temp 98.3 F 08/07/24 16:53 Pulse 60 08/07/24 16:53 Resp 16 08/07/24 16:53 BP 116/79 08/07/24 16:53 Pulse Ox 96 08/07/24 16:53 FiO2 Intake & Output 08/06/24 08/07/24 08/07/24 18:59 06:59 18:59 Weight 246 kg Home Medications: Home Medications Medication Instructions Recorded Confirmed Type Apixaban [Eliquis] 5 mg PO BID #60 tab 12/25/20 11/02/23 Rx Furosemide [Lasix] 40 mg PO DAILY #30 tab 02/14/22 11/02/23 Rx Metoprolol Succinate [Toprol XL] 100 mg PO DAILY 05/15/22 11/02/23 History Empagliflozin [Jardiance] 10 mg PO DAILY 09/11/23 11/02/23 History Magnesium 200 mg PO HS 09/11/23 11/02/23 History Mexiletine HCl 150 mg PO TID 09/11/23 11/02/23 History Sacubitril/Valsartan [Entresto 24 1 tab PO BID 09/11/23 11/02/23 History mg-26 mg Tablet] Spironolactone [Aldactone] 12.5 mg PO DAILY 09/11/23 11/02/23 History Sulfamethox-Tmp 800-160Mg [Bactrim 1 tab PO MOWEFR 09/11/23 11/02/23 History DS 800-160 mg] mycophenolate mofetiL [Cellcept] 1,000 mg PO BID 09/11/23 11/02/23 History predniSONE 5 mg PO DAILY 09/11/23 11/02/23 History predniSONE 10 mg PO DAILY 09/11/23 11/02/23 History Sotalol HCl [Sotalol] 160 mg PO BID 11/02/23 11/02/23 History
== END ==
LOC: 3 N SLEEP 16:13
PROVIDERS: ATTEND Internal Medicine
CPT/HCPCS: 99212

== ENCOUNTER → 2025-04-16 | Outpatient (CLI) | payer OTHER ==
[2025-04-16 16:09] VITALS: BP 119/78; PULSE 60; RESP 12; TEMP 98.1
--- NOTE | 2025-04-16 16:40 | P.PROGSL ---
Subjective DATE: 04/16/2025 FOLLOW UP VISIT. Patient with obstructive sleep apnea hypopnea syndrome return to sleep center for follow-up visit. Information from previous visit have been reviewed. Patient is using PAP equipment every night for the whole night, getting PAP supplies in time. The patient does not have significant problems with the mask, PAP unit and humidification. [place] sleepiness scale is 2, which is perfect. I checked information from PAP unit. PAP unit pressure 7-17, average 13.8 cm H2O. Usage is 100% for more then 4 hours, average 7.3 hours per night. Leak is 13 l/m, which is in acceptable range. Apnea Hypopnea Index is increased 10.4. MEDICATIONS have been reviewed, please see below. During physical exam: GENERAL: A pleasant patient without any distress. VITAL SIGNS: Please see below, weight is 248 lbs. HEENT: PERRLA, EOMI.low position of soft palate, Mallapati 34. NECK: Supple. No JVD. LUNGS: Clear to percussion and to auscultation. Good air exchange. No wheezing or rhonchi. HEART: S1, S2 regular. ABDOMEN: Soft and nontender.[] EXTREMITIES: No clubbing or cyanosis. DOCUMENT IMPROVEMENT SPECIALIST: Awake, alert, and oriented x3. No focal deficit. Impressions: 1. Obstructive sleep apnea-hypopnea syndrome. Patient demonstrated great compliance with treatment, benefiting from treatment. 2. History of atrial fibrillation, status post cardiac ablation and ICD implant. 3. History of sarcoidosis of the heart. 4. Hypertension. 5. Obesity, BMI 35.6. I changed pressure in [employer] to the range 7-19 cm of water. Plan: 1. Continue using PAP equipment every night for the whole night. 2. Sleep hygiene with regular time in bed for at least 7.5-8 hours 3. PAP unit should stay lower then position of the head. 4. Advised patient to remove all remaining water from humidifier canister daily and make it dry after each usage. Refill canister with fresh distilled water before each usage. 5. Watching weight. 6. Precautions related to driving. No driving if feel any sleepiness. 7. I will maintain prescription for PAP supplies including mask, tube, filters. 8. Follow up visit in 8 months or earlier if patient has any problems. Thank you very much for allowing me to participate in the management of your patient. Dominic Avila MD, PhD, FAASM. Diplomat of [employer], Sleep Medicine Board by [employer] Counselor of [facility] [place] Objective - Vital Signs Vital Signs: Vital Signs Temp 98.1 F 04/16/25 16:09 Pulse 60 04/16/25 16:09 Resp 12 04/16/25 16:09 BP 119/78 04/16/25 16:09 Pulse Ox 96 04/16/25 16:09 FiO2 Intake & Output 04/15/25 04/16/25 04/16/25 18:59 06:59 18:59 Weight 112.491 kg Home Medications: Home Medications Medication Instructions Recorded Confirmed Type Apixaban [Eliquis] 5 mg PO BID #60 tab 12/25/20 11/02/23 Rx Furosemide [Lasix] 40 mg PO DAILY #30 tab 02/14/22 11/02/23 Rx Metoprolol Succinate [Toprol XL] 100 mg PO DAILY 05/15/22 11/02/23 History Empagliflozin [Jardiance] 10 mg PO DAILY 09/11/23 11/02/23 History Magnesium 200 mg PO HS 09/11/23 11/02/23 History Mexiletine HCl 150 mg PO TID 09/11/23 11/02/23 History Sacubitril/Valsartan [Entresto 24 1 tab PO BID 09/11/23 11/02/23 History mg-26 mg Tablet] Spironolactone [Aldactone] 12.5 mg PO DAILY 09/11/23 11/02/23 History Sulfamethox-Tmp 800-160Mg [Bactrim 1 tab PO MOWEFR 09/11/23 11/02/23 History DS 800-160 mg] mycophenolate mofetiL [Cellcept] 1,000 mg PO BID 09/11/23 11/02/23 History predniSONE 5 mg PO DAILY 09/11/23 11/02/23 History predniSONE 10 mg PO DAILY 09/11/23 11/02/23 History Sotalol HCl [Sotalol] 160 mg PO BID 11/02/23 11/02/23 History
== END ==
LOC: 3 N SLEEP 15:45
PROVIDERS: ATTEND Internal Medicine
DX: G47.33 Obstructive sleep apnea (adult) (pediatric) (principal); I48.91 Unspecified atrial fibrillation; I10 Essential (primary) hypertension; E66.9 Obesity, unspecified; Z68.35 Body mass index [BMI] 35.0-35.9, adult; Z95.810 Presence of automatic (implantable) cardiac defibrillator; Z87.891 Personal history of nicotine dependence; Z88.8 Allergy status to other drugs, medicaments and biological substances; Z99.89 Dependence on other enabling machines and devices
CPT/HCPCS: 99212